=== PATIENT | female | born 1935 | race Caucasian/White ===

== ENCOUNTER 2020-04-16 07:42 | Outpatient (REF) | payer MEDICARE, MEDICAID, SELFPAY ==
[2020-04-16 11:34] LABS: MANUAL DIFF FLAG NO
[2020-04-16 11:49] LABS: Basophils Percent Auto 0.5 % (0-2); Eosinophils Absolute Auto 0.2 X10*3/uL (0.0-0.4); Eosinophils Percent Auto 3.7 % (0-4); Hematocrit 40.4 % (37-47); Imm Gran Abs Auto 0.03 X10*3/uL (0.00-0.03); Imm Gran Pct Auto 0.5 % (0.0-0.4); Lymphocytes Absolute Auto 2.5 X10*3/uL (1.2-4.9); Lymphocytes Percent Auto 38.6 % (20-40); Mean Corpuscular HGB Conc 32.2 g/dl (31.0-35.0); Mean Corpuscular Hemoglobin 31.6 pg (27.0-33.0); Mean Corpuscular Volume 98.1 fL (80-98); Mean Platelet Volume 10.9 fL (9.4-12.3); Monocytes Absolute Auto 0.5 X10*3/uL (0.1-1.2); Monocytes Percent Auto 6.9 % (2-11); Neutrophils Absolute Auto 3.3 X10*3/uL (2.0-8.3); Neutrophils Percent Auto 49.8 % (45-73); Platelet Count 165 X10*3/uL (160-400); Red Blood Count 4.12 X10*6/uL (4.20-5.50); Red Cell Distribution Width 12.6 % (11.0-16.0); White Blood Count 6.6 X10*3/uL (4.8-10.8)
[2020-04-16 12:08] LABS: Alanine Aminotransferase 10 U/L (0-31); Albumin Level 3.8 g/dL (3.5-5.0); Alkaline Phosphatase 74 U/L (39-117); Anion Gap 12 (12-20); Aspartate Amino Transferase 17 U/L (5-31); Bilirubin Total 0.3 mg/dL (0.0-1.0); Blood Urea Nitrogen 20 mg/dL (9-16); Calcium 9.3 mg/dL (8.4-10.2); Carbon Dioxide 27 mmol/L (22-29); Chloride 108 mmol/L (96-108); Cholesterol 204 mg/dL; Estimated Glomerular Filt Rate 47; Glucose Fasting 78 mg/dL (60-99); HDL Cholesterol 63 mg/dL; LDL Cholesterol Calculated 122 mg/dl; Potassium 4.8 mmol/l (3.3-5.1); Sodium 142 mmol/L (135-145); Total Protein 6.1 g/dL (6.5-8.0); Triglycerides 97 mg/dL
[2020-04-16 12:34] LABS: TSH reflex Free T4 0.98 mIU/mL (0.32-4.0); Vitamin D 25-OH Total 32.5 ng/mL (>30)
== END 2020-04-16 07:43 | disposition home or self-care (01) ==
LOC: HO.HMGCLDS 07:42
PROVIDERS: PCP Internal Medicine; Visit Provider Internal Medicine
DX: E78.5 Hyperlipidemia, unspecified (principal); I10 Essential (primary) hypertension; M81.0 Age-related osteoporosis without current pathological fracture; Z78.0 Asymptomatic menopausal state
CPT/HCPCS: 36415; 80053; 80061; 82306; 84443; 85025

== ENCOUNTER 2020-04-20 11:30 | Outpatient (RCR) | payer MEDICARE, MEDICAID, SELFPAY ==
[2020-04-05 13:33] VITALS: BP 132/78; PULSE 80; O2SAT 98
--- NOTE | 2020-04-05 14:53 | MHC.PT.EP ---
[facility] [place] [facility] [place] [facility] [place] [facility] [address] Candy Sanches [address] [phone] F: [phone] F: [phone] F: [phone] F: [phone] Physical Therapy Plan of Care Date of Evaluation: 04/05/20 Date of Surgery: NA Diagnosis: This is an 84 yo female presenting to skilled PT with a script for positional lightheadedness. Assessment: This is an 84 yo female presenting to skilled PT with a script for vertigo. The patient had an acute attack of vertigo back in August. Her blood pressure was also elevated and they admitted her to [facility]. She was seen by Physical Therapy inpatient and was positive for positional vertigo and then went to outpatient PT for a visit for VOR exercises. Since then her symptoms have been on and off but have increased more lately. The symptoms increase with bending forward, laying down (specifically on the R) and quick movements. Examination demonstrated (+) for dizziness and nystagmus for BPPV with R hallpike. With assessment of balance she demos increased dizziness with EC during [place] SOPT and with horizontal head turns during DGI today. She would benefit from reassessment of PT. Educated patient on causes of dizziness, balance systems and vestibular anatomy with glazier structural glass. She is a good candidate for skilled PT 2x/wk for 5wks. Frequency and Duration: The patient will be seen 2x/wk 5wks Short Term Goals: I in HEP if given Manager [employer] Goals: For the patient to be negative for nystagmus or reports of vertigo in all diagnostic positions bilaterally to resolution of BPPV in 4 weeks. Patient will report no LOB with ambulation For the patient to be able to functionally move in all planes and directions without provocation of dizziness to show return to PLOF. Treatment Plan: Modalities to reduce pain, spasms and effusion. Manual therapy to restore motion and function. Therapeutic exercise to improve strength and flexibility. Neuromuscular re-education for posture and balance. Therapeutic activities to return to functional activities of daily living. Please sign and return to therapist. Thank you for your referral.
--- NOTE | 2020-05-18 08:00 | MHC.PT.DC ---
[facility] [place] [facility] [place] [facility] [place] [facility] [address] Candy Sanches [address] [phone] F: [phone] F: [phone] F: [phone] F: [phone] Physical Therapy Discharge Report Diagnosis: This is an 84 yo female presenting to skilled PT with a script for positional lightheadedness. Date of Surgery: NA Date of Evaluation: 04/05/20 Date of Discharge: 05/18/20 Treatments to Date: 3 Cancellations to Date: 0 No Shows to Date: 0 Discharge Status: Achieved Goals Improved Function Independent with HEP Discharge Summary: Patient without any nystagmus or dizziness with reassessment. She demos good balance with testing. I reviewed VOR exercises and how to perform properly and safely. Left chart open for 30 days before DC. Educated on anatomy, PT POC, vestibular pathway. Electronically signed by: Chel Ponce, PT Please sign and return to therapist. Thank you for your referral.
== END 2020-05-18 08:05 | disposition home or self-care (01) ==
LOC: HO.PTCHIC 11:30
PROVIDERS: PCP Internal Medicine; Visit Provider Internal Medicine
DX: R42 Dizziness and giddiness (principal)
CPT/HCPCS: 95992; 97112; 97161; 97530

== ENCOUNTER 2020-11-09 07:02 | Outpatient (REF) | payer OTHER, SELFPAY ==
[2020-11-09 12:08] LABS: MANUAL DIFF FLAG NO
[2020-11-09 12:24] LABS: Basophils Percent Auto 0.6 % (0-2); Eosinophils Absolute Auto 0.2 X10*3/uL (0.0-0.4); Eosinophils Percent Auto 2.7 % (0-4); Hematocrit 41.2 % (37-47); Hemoglobin 13.1 g/dl (12.0-16.0); Imm Gran Abs Auto 0.04 X10*3/uL (0.00-0.03); Imm Gran Pct Auto 0.6 % (0.0-0.4); Lymphocytes Absolute Auto 2.5 X10*3/uL (1.2-4.9); Lymphocytes Percent Auto 37.3 % (20-40); Mean Corpuscular HGB Conc 31.8 g/dl (31.0-35.0); Mean Corpuscular Hemoglobin 31.3 pg (27.0-33.0); Mean Corpuscular Volume 98.6 fL (80-98); Mean Platelet Volume 11.1 fL (9.4-12.3); Monocytes Absolute Auto 0.5 X10*3/uL (0.1-1.2); Monocytes Percent Auto 6.9 % (2-11); Neutrophils Absolute Auto 3.5 X10*3/uL (2.0-8.3); Neutrophils Percent Auto 51.9 % (45-73); Platelet Count 155 X10*3/uL (160-400); Red Blood Count 4.18 X10*6/uL (4.20-5.50); Red Cell Distribution Width 13.2 % (11.0-16.0); White Blood Count 6.7 X10*3/uL (4.8-10.8)
[2020-11-09 12:45] LABS: Alanine Aminotransferase 10 U/L (0-31); Anion Gap 12 (12-20); Aspartate Amino Transferase 18 U/L (5-31); Blood Urea Nitrogen 24 mg/dL (9-16); Calcium 9.8 mg/dL (8.4-10.2); Carbon Dioxide 26 mmol/L (22-29); Chloride 110 mmol/L (96-108); Cholesterol 217 mg/dL; Estimated Glomerular Filt Rate 50; Glucose Fasting 77 mg/dL (60-99); HDL Cholesterol 61 mg/dL; LDL Cholesterol Calculated 135 mg/dl; Potassium 4.7 mmol/L (3.3-5.1); Sodium 143 mmol/L (135-145); Triglycerides 109 mg/dL
[2020-11-09 12:47] LABS: Vitamin D 25-OH Total 34.1 ng/mL (>30)
== END 2020-11-09 07:03 | disposition home or self-care (01) ==
LOC: HO.HMGCLDS 07:02
PROVIDERS: PCP Internal Medicine; Visit Provider Internal Medicine
DX: I10 Essential (primary) hypertension (principal); M81.0 Age-related osteoporosis without current pathological fracture; E78.5 Hyperlipidemia, unspecified; Z78.0 Asymptomatic menopausal state
CPT/HCPCS: 36415; 80048; 80061; 82306; 84450; 84460; 85025

== ENCOUNTER 2020-12-24 10:49 | Emergency (ER) | payer OTHER, SELFPAY ==
[2020-12-24 10:51] VITALS: BP 136/90; BP 155/89; PULSE 134; PULSE 144; RESP 18; TEMP 36.8; O2SAT 98; BMI 19.1
--- NOTE | 2020-12-24 11:04 | ECG_ITS ---
Test Reason : AFIB Blood Pressure : / mmHG Vent. Rate : 135 BPM Atrial Rate : 136 BPM P-R Int : 000 ms QRS Dur : 132 ms QT Int : 316 ms P-R-T Axes : 000 -54 009 degrees QTc Int : 474 ms Supraventricular tachycardia Right bundle branch block Left anterior fascicular block ST & T wave abnormality, consider anterior ischemia Abnormal ECG When compared with ECG of 02-SEP-2019 08:56, Vent. rate has increased BY [address] now depressed in Inferior leads Non-specific change in ST segment in Anterior leads Referred By: Tammy Burch Electronically Signed By:KRISTOPHER WORKMAN MD
--- NOTE | 2020-12-24 11:04 | ED_ITS ---
HPI - GI Bleed General Chief complaint: General Medical Stated complaint: gi bleed Time Seen by Provider: 12/24/20 11:04 Source: patient and EMS Mode of arrival: EMS Limitations: no limitations History of Present Illness HPI Narrative: sent from center c/o black stool no AC therapy no ASA/Fe/pepto bismol that patient was found to be in a HR of 150s on arrival to and brought to ED by EMS complaint: melena Onset (ago): day(s) (today just once but a large amount) Pain Consistency: now resolved Severity: mild Relieving factors: none Exacerbating factors: none Associated symptoms: denies other symptoms Treatments Prior to Arrival: none Related Data Home Medications Medication Instructions Recorded Confirmed cholecalciferol (vitamin D3) 50 50 mcg PO DAILY 04/20/20 12/24/20 mcg (2,000 unit) capsule acetaminophen 650 mg PO Q6H PRN 12/24/20 12/24/20 nystatin-triamcinolone 1 appl TOPICAL DAILY 12/24/20 12/24/20 Previous Rx's Medication Instructions Recorded lisinopril 10 mg tablet 10 mg PO DAILY #90 tab 12/14/20 omeprazole 20 mg PO DAILY 14 Days #14 cap 12/24/20 Allergies Allergy/AdvReac Type Severity Reaction Status Date / Time codeine [Codeine] Allergy Mild NAUSEA AND Verified 12/24/20 09:59 VOMITING azithromycin AdvReac Intermediate N/V/D, Verified 12/24/20 09:59 [From ZITHROMAX Z-EWA] severe GI upset lisinopril AdvReac Unknown cough Verified 12/24/20 09:59 Review of Systems Review of Systems: Constitutional : No Weight loss, No Fever, No Chills, No Fatigue, No Malaise ENT/Mouth : No sore throat, No Rhinorrhea Eyes: No Eye Pain, No Swelling, No Redness Cardiovascular : No Chest Pain, No SOB, No Dyspnea on Exertion, No Orthopnea, No Edema, No Palpitations Respiratory : No Cough, No Sputum, No Wheezing Gastrointestinal : No Nausea, No Vomiting, No Diarrhea, No Constipation, No abdominal Pain, No Hematochezia, pos Melena Genitourinary : No Dysuria, No Urinary Frequency, No Hematuria, Musculoskeletal : No joint pain, No Myalgias, No Joint Swelling Skin : No Skin Lesions, No rash Neuro : No Weakness, No Numbness, No Dizziness, No Headache Psych : No Anxiety/Panic, No Depression Heme/Lymph: No Bruising, No Bleeding,No Lymphadenopathy Endocrine : No Polyuria, No Polydipsia All other systems reviewed and are negative [facility] Past Medical History Attestation statement: The following information was validated with the patient. Medical History Dyslipidemia HTN (hypertension) Intertrigo Menopause Osteoporosis Smoker unmotivated to quit Vertigo Surgical History History of appendectomy History of cataract surgery History of colonoscopy History of partial hysterectomy Family History Family History Father No problems noted. Mother No problems noted. Sister No problems noted. Son No problems noted. Son No problems noted. Son No problems noted. Son No problems noted. Social History Social History Alcohol intake: never Cigarette Packs Per Day: 1 Advance Directives: No Advance Directives Information Provided: No Physical Exam Vital Signs: Vital Signs: Last Vital Signs Temp 98.4 F 12/24/20 14:39 Pulse 60 12/24/20 14:39 Resp 20 12/24/20 14:39 BP 123/52 L 12/24/20 14:39 Pulse Ox 97 12/24/20 14:39 Body Mass Index 19.1 Appearance: Alert. Oriented X3. No acute distress. Eyes: Pupils equal, round and reactive to light. ENT: Pharynx normal. Neck: Normal inspection. Neck supple. CVS: tacycardic irregular heart rate and rhythm. Pulses normal. Respiratory: No respiratory distress. Breath sounds normal. Abdomen: Soft and nontender. Rectal: black stool on card Skin: Skin warm and dry. Normal skin color. Normal skin turgor. Extremities: No lower extremity edema. No calf ttp Neuro: Oriented X 3. No motor deficit. No sensory deficit. Course Course Course Narrative: while RN was pushing 5mg dilt BP 150s HR 135 - her HR went to the 70s on her home NSR we stopped pushing the medication and removed the fluid from her line by pull back and removed the IV, patient aware, will continue to observe and monitor HR 70 BP stable repeat trop flat remains in NSR, H/H stable guiac negative no further bouts will refer to her doctor and cardiology start on low dose PPI x 2 weeks MDM - GI Bleed MDM Narrative Medical decision making narrative: 85 yo female hc of HTN, HLD, smoker here with 1 episode of melena at home - no risk factors, no abdominal pain, no prior episodes of this in the past, also found to be tachcyardic in the 150s ?aflutter at this time will need labs EKG, possible dilt to assess underlying rhythm she states she cannot feel her HR racing and has no CP/SOB so doubt ACS or PE, IV protonix during workup, dispo per results and findings. Lab Data Result diagrams: 12/24/20 11:32 12/24/20 11:32 Labs: Lab Results 12/24/20 12/24/20 12/24/20 Range/Units 11:32 11:32 11:32 WBC 7.2 (4.8-10.8) X10*3/uL RBC 4.34 (4.20-5.50) X10*6/uL Hgb 13.8 (12.0-16.0) g/dl Hct 42.3 (37-47) % MCV 97.5 (80-98) fL MCH 31.8 (27.0-33.0) pg MCHC 32.6 (31.0-35.0) g/dl RDW 13.0 (11.0-16.0) % Plt Count 171 (160-400) X10*3/uL MPV 10.4 (9.4-12.3) fL Immature Gran % (Auto) 0.7 H (0.0-0.4) % Neut % (Auto) 78.3 H (45-73) % Lymph % (Auto) 14.3 L (20-40) % [place] % (Auto) 5.0 (2-11) % Eos % (Auto) 1.1 (0-4) % Baso % (Auto) 0.6 (0-2) % Lymph # (Auto) 1.0 L (1.2-4.9) X10*3/uL [place] # (Auto) 0.4 (0.1-1.2) X10*3/uL Eos # (Auto) 0.1 (0.0-0.4) X10*3/uL Baso # (Auto) 0.0 (0.0-0.2) X10*3/uL Abs Immat Gran (auto) 0.05 H (0.00-0.03) X10*3/uL Absolute Neuts (auto) 5.6 (2.0-8.3) X10*3/uL Absolute Nucleated RBC 0.000 (0.0-0.012) X10*3/uL Nucleated RBC % (auto) 0.0 (0.0-0.2) /100WBC PT (9.9-13.0) SEC INR (0.9-1.1) APTT (24.1-38.0) SEC Sodium 142 (135-145) mmol/L Potassium 4.0 (3.3-5.1) mmol/L Chloride 110 H (96-108) mmol/L Carbon Dioxide 25 (22-29) mmol/L Anion Gap 11 L (12-20) BUN 17 H (9-16) mg/dL Creatinine 0.97 (0.5-1.4) mg/dL Estim Creat Clear Calc 26.3 Estimated GFR 55 Random Glucose 96 (60-115) mg/dL Lactic Acid (0.5-2.0) mmol/L Lactic Acid Fup @ 2Hr (0.5-2.0) mmol/L Calcium 10.0 (8.4-10.2) mg/dL Magnesium (1.6-2.6) mg/dL Total Bilirubin (0.0-1.0) mg/dL Direct Bilirubin (0.0-0.5) mg/dL AST (5-31) U/L ALT (0-31) U/L Alkaline Phosphatase (39-117) U/L Troponin I High Sens (<3.5-17.0) ng/L Total Protein (6.5-8.0) g/dL Albumin (3.5-5.0) g/dL Lipase (8-78) U/L Urine Color Urine Appearance Urine pH (5.0-8.0) Ur Specific [place] (1.005-1.025) Urine Protein (NEG-TRACE) MG/DL Urine Glucose (UA) (NEG) MG/DL Urine Ketones (NEG) MG/DL Urine Blood (NEG) Urine Nitrite (NEG) Ur Leukocyte Esterase (NEG) Stool Occult Blood (NEGATIVE) COVID-19 (SEVERO) COVID-19 Clin Com Blood Type B Positive Antibody Screen NEGATIVE 12/24/20 12/24/20 12/24/20 Range/Units 11:33 11:33 11:33 WBC (4.8-10.8) X10*3/uL RBC (4.20-5.50) X10*6/uL Hgb (12.0-16.0) g/dl Hct (37-47) % MCV (80-98) fL MCH (27.0-33.0) pg MCHC (31.0-35.0) g/dl RDW (11.0-16.0) % Plt Count (160-400) X10*3/uL MPV (9.4-12.3) fL Immature Gran % (Auto) (0.0-0.4) % Neut % (Auto) (45-73) % Lymph % (Auto) (20-40) % [place] % (Auto) (2-11) % Eos % (Auto) (0-4) % Baso % (Auto) (0-2) % Lymph # (Auto) (1.2-4.9) X10*3/uL [place] # (Auto) (0.1-1.2) X10*3/uL Eos # (Auto) (0.0-0.4) X10*3/uL Baso # (Auto) (0.0-0.2) X10*3/uL Abs Immat Gran (auto) (0.00-0.03) X10*3/uL Absolute Neuts (auto) (2.0-8.3) X10*3/uL Absolute Nucleated RBC (0.0-0.012) X10*3/uL Nucleated RBC % (auto) (0.0-0.2) /100WBC PT 10.2 (9.9-13.0) SEC INR 0.9 (0.9-1.1) APTT 39.2 H (24.1-38.0) SEC Sodium (135-145) mmol/L Potassium (3.3-5.1) mmol/L Chloride (96-108) mmol/L Carbon Dioxide (22-29) mmol/L Anion Gap (12-20) BUN (9-16) mg/dL Creatinine (0.5-1.4) mg/dL Estim Creat Clear Calc Estimated GFR Random Glucose (60-115) mg/dL Lactic Acid 2.4 H* (0.5-2.0) mmol/L Lactic Acid Fup @ 2Hr (0.5-2.0) mmol/L Calcium (8.4-10.2) mg/dL Magnesium 2.1 (1.6-2.6) mg/dL Total Bilirubin 0.4 (0.0-1.0) mg/dL Direct Bilirubin 0.2 (0.0-0.5) mg/dL AST 17 (5-31) U/L ALT 10 (0-31) U/L Alkaline Phosphatase 96 D (39-117) U/L Troponin I High Sens (<3.5-17.0) ng/L Total Protein 6.4 L (6.5-8.0) g/dL Albumin 4.1 (3.5-5.0) g/dL Lipase 43 (8-78) U/L Urine Color Urine Appearance Urine pH (5.0-8.0) Ur Specific [place] (1.005-1.025) Urine Protein (NEG-TRACE) MG/DL Urine Glucose (UA) (NEG) MG/DL Urine Ketones (NEG) MG/DL Urine Blood (NEG) Urine Nitrite (NEG) Ur Leukocyte Esterase (NEG) Stool Occult Blood (NEGATIVE) COVID-19 (SEVERO) COVID-19 Clin Com Blood Type Antibody Screen 12/24/20 12/24/20 12/24/20 Range/Units 11:33 11:34 11:35 WBC (4.8-10.8) X10*3/uL RBC (4.20-5.50) X10*6/uL Hgb (12.0-16.0) g/dl Hct (37-47) % MCV (80-98) fL MCH (27.0-33.0) pg MCHC (31.0-35.0) g/dl RDW (11.0-16.0) % Plt Count (160-400) X10*3/uL MPV (9.4-12.3) fL Immature Gran % (Auto) (0.0-0.4) % Neut % (Auto) (45-73) % Lymph % (Auto) (20-40) % [place] % (Auto) (2-11) % Eos % (Auto) (0-4) % Baso % (Auto) (0-2) % Lymph # (Auto) (1.2-4.9) X10*3/uL [place] # (Auto) (0.1-1.2) X10*3/uL Eos # (Auto) (0.0-0.4) X10*3/uL Baso # (Auto) (0.0-0.2) X10*3/uL Abs Immat Gran (auto) (0.00-0.03) X10*3/uL Absolute Neuts (auto) (2.0-8.3) X10*3/uL Absolute Nucleated RBC (0.0-0.012) X10*3/uL Nucleated RBC % (auto) (0.0-0.2) /100WBC PT (9.9-13.0) SEC INR (0.9-1.1) APTT (24.1-38.0) SEC Sodium (135-145) mmol/L Potassium (3.3-5.1) mmol/L Chloride (96-108) mmol/L Carbon Dioxide (22-29) mmol/L Anion Gap (12-20) BUN (9-16) mg/dL Creatinine (0.5-1.4) mg/dL Estim Creat Clear Calc Estimated GFR Random Glucose (60-115) mg/dL Lactic Acid (0.5-2.0) mmol/L Lactic Acid Fup @ 2Hr (0.5-2.0) mmol/L Calcium (8.4-10.2) mg/dL Magnesium (1.6-2.6) mg/dL Total Bilirubin (0.0-1.0) mg/dL Direct Bilirubin (0.0-0.5) mg/dL AST (5-31) U/L ALT (0-31) U/L Alkaline Phosphatase (39-117) U/L Troponin I High Sens 14.5 (<3.5-17.0) ng/L Total Protein (6.5-8.0) g/dL Albumin (3.5-5.0) g/dL Lipase (8-78) U/L Urine Color STRAW Urine Appearance CLEAR Urine pH 6.0 (5.0-8.0) Ur Specific [place] <= 1.005 (1.005-1.025) Urine Protein NEG (NEG-TRACE) MG/DL Urine Glucose (UA) NEG (NEG) MG/DL Urine Ketones NEG (NEG) MG/DL Urine Blood NEG (NEG) Urine Nitrite NEG (NEG) Ur Leukocyte Esterase NEG (NEG) Stool Occult Blood NEGATIVE (NEGATIVE) COVID-19 (SEVERO) COVID-19 Clin Com Blood Type Antibody Screen 12/24/20 12/24/20 12/24/20 Range/Units 11:36 13:54 13:54 WBC (4.8-10.8) X10*3/uL RBC (4.20-5.50) X10*6/uL Hgb (12.0-16.0) g/dl Hct (37-47) % MCV (80-98) fL MCH (27.0-33.0) pg MCHC (31.0-35.0) g/dl RDW (11.0-16.0) % Plt Count (160-400) X10*3/uL MPV (9.4-12.3) fL Immature Gran % (Auto) (0.0-0.4) % Neut % (Auto) (45-73) % Lymph % (Auto) (20-40) % [place] % (Auto) (2-11) % Eos % (Auto) (0-4) % Baso % (Auto) (0-2) % Lymph # (Auto) (1.2-4.9) X10*3/uL [place] # (Auto) (0.1-1.2) X10*3/uL Eos # (Auto) (0.0-0.4) X10*3/uL Baso # (Auto) (0.0-0.2) X10*3/uL Abs Immat Gran (auto) (0.00-0.03) X10*3/uL Absolute Neuts (auto) (2.0-8.3) X10*3/uL Absolute Nucleated RBC (0.0-0.012) X10*3/uL Nucleated RBC % (auto) (0.0-0.2) /100WBC PT (9.9-13.0) SEC INR (0.9-1.1) APTT (24.1-38.0) SEC Sodium (135-145) mmol/L Potassium (3.3-5.1) mmol/L Chloride (96-108) mmol/L Carbon Dioxide (22-29) mmol/L Anion Gap (12-20) BUN (9-16) mg/dL Creatinine (0.5-1.4) mg/dL Estim Creat Clear Calc Estimated GFR Random Glucose (60-115) mg/dL Lactic Acid (0.5-2.0) mmol/L Lactic Acid Fup @ 2Hr 0.9 (0.5-2.0) mmol/L Calcium (8.4-10.2) mg/dL Magnesium (1.6-2.6) mg/dL Total Bilirubin (0.0-1.0) mg/dL Direct Bilirubin (0.0-0.5) mg/dL AST (5-31) U/L ALT (0-31) U/L Alkaline Phosphatase (39-117) U/L Troponin I High Sens 17.9 H* (<3.5-17.0) ng/L Total Protein (6.5-8.0) g/dL Albumin (3.5-5.0) g/dL Lipase (8-78) U/L Urine Color Urine Appearance Urine pH (5.0-8.0) Ur Specific [place] (1.005-1.025) Urine Protein (NEG-TRACE) MG/DL Urine Glucose (UA) (NEG) MG/DL Urine Ketones (NEG) MG/DL Urine Blood (NEG) Urine Nitrite (NEG) Ur Leukocyte Esterase (NEG) Stool Occult Blood (NEGATIVE) COVID-19 (SEVERO) TNP COVID-19 Clin Com See Note Blood Type Antibody Screen ECG Data Attestation: I personally reviewed and interpreted this ECG as follows: ECG interpretation date: 12/24/20 ECG interpretation time: 11:35 Interpretation: Rate: 135 Rhythm: narrow complex tachycardia [place]: left Normal P waves. Normal RAKESH. incomplete RBBB ST T wave : nonspecific, no SERVANDO qTC: normal prior studies: no acute ischemia old RBBB 08/2019 The study has been interpreted contemporaneously by me. . EKG #2 Rate: 63 Rhythm: NSR [place]: left Normal P waves. Normal RAKESH. incomplete RBBB. ST T wave : normal no SERVANDO nonspecific qTC: normal prior studies: no acute ischemia The study has been interpreted contemporaneously by me. . Discharge Plan Discharge Clinical Impression: Tachycardia, Melena Patient Disposition: Home, Self-Care Instructions: Tachycardia (ED), Melena (ED) Additional Instructions: return to ED for any worsening symptoms or concerns AVOID ASPIRIN, MOTRIN, IBUPROFEN, ALEVE, NAPROSYN - TYLENOL IS SAFE Prescriptions: New omeprazole 20 mg capsule,delayed release(DR/EC) 20 mg PO DAILY 14 Days Qty: 14 RF: 0 No Action lisinopril 10 mg tablet 10 mg PO DAILY Qty: 90 RF: 1 acetaminophen 325 mg Tablet 650 mg PO Q6H PRN (Reason: Sinus Symptoms) RF: 0 nystatin-triamcinolone 100,000-0.1 unit/g-% cream 1 appl topical DAILY RF: 0 cholecalciferol (vitamin D3) 50 mcg (2,000 unit) capsule 50 mcg PO DAILY RF: 0 Referrals: Crissy Sullivan MD [Primary Care Provider] - 2 days Richard Lowry MD [Physician] - 2 weeks
--- NOTE | 2020-12-24 11:30 | PHA.MEDREC ---
Pharmacy Consult ? Medication Reconciliation Pharmacy has completed the medication reconciliation. Patient reports using an antifungal cream, however no record at a pharmacy. Her home med list had nystatin-triamcinolone prior to editing therefore I kept it on the med list. Candice Murillo, PharmD
[2020-12-24 11:38] VITALS: BP 155/89; PULSE 72
[2020-12-24] MEDS: dilTIAZem HCL 50 MG/10 ML VIAL IVPUSH (11:38)
[2020-12-24] MEDS: Pantoprazole Sodium 40 MG/10 ML VIAL IVPUSH (11:38)
[2020-12-24] MEDS: 0.9 % Sodium Chloride 1,000 ML 999 ML IVCONT (11:40)
[2020-12-24 11:46] LABS: OBS Int Ctl Valid YES; OBS1 NEGATIVE (NEGATIVE)
[2020-12-24 11:46] LABS: MANUAL DIFF FLAG NO
[2020-12-24 11:49] LABS: Glucose Urine UA NEG (NEG); Leukocyte Esterase Urine NEG (NEG); Nitrite Urine NEG (NEG); Specific Gravity - Urine <= 1.005 (1.005-1.025); Urine Blood NEG (NEG); Urine Ketones NEG (NEG); Urine Protein NEG (NEG-TRACE)
[2020-12-24 11:50] LABS: IDNOW Serial# 9DD0AD1C
[2020-12-24 11:50] LABS: Appearance Urine CLEAR; Color Urine STRAW
[2020-12-24 11:52] LABS: INTERNATIONAL NORM RATIO 0.9 (0.9-1.1); Prothrombin Time 10.2 SEC (9.9-13.0)
[2020-12-24 11:52] LABS: Basophils Percent Auto 0.6 % (0-2); Eosinophils Absolute Auto 0.1 X10*3/uL (0.0-0.4); Eosinophils Percent Auto 1.1 % (0-4); Hematocrit 42.3 % (37-47); Hemoglobin 13.8 g/dl (12.0-16.0); Imm Gran Abs Auto 0.05 X10*3/uL (0.00-0.03); Imm Gran Pct Auto 0.7 % (0.0-0.4); Lymphocytes Percent Auto 14.3 % (20-40); Mean Corpuscular HGB Conc 32.6 g/dl (31.0-35.0); Mean Corpuscular Hemoglobin 31.8 pg (27.0-33.0); Mean Corpuscular Volume 97.5 fL (80-98); Mean Platelet Volume 10.4 fL (9.4-12.3); Monocytes Absolute Auto 0.4 X10*3/uL (0.1-1.2); Neutrophils Absolute Auto 5.6 X10*3/uL (2.0-8.3); Neutrophils Percent Auto 78.3 % (45-73); Platelet Count 171 X10*3/uL (160-400); Red Blood Count 4.34 X10*6/uL (4.20-5.50); White Blood Count 7.2 X10*3/uL (4.8-10.8)
[2020-12-24 11:55] LABS: Partial Thromboplastin Time 39.2 SEC (24.1-38.0)
[2020-12-24 12:13] VITALS: BP 129/62; PULSE 72; RESP 16; O2SAT 98
[2020-12-24 12:18] LABS: Anion Gap 11 (12-20); Blood Urea Nitrogen 17 mg/dL (9-16); Carbon Dioxide 25 mmol/L (22-29); Chloride 110 mmol/L (96-108); Creatinine Clr Calc Pharmacy 26.3; Estimated Glomerular Filt Rate 55; Glucose Random 96 mg/dL (60-115); Sodium 142 mmol/L (135-145)
[2020-12-24 12:19] LABS: Alanine Aminotransferase 10 U/L (0-31); Albumin Level 4.1 g/dL (3.5-5.0); Alkaline Phosphatase 96 U/L (39-117); Aspartate Amino Transferase 17 U/L (5-31); Bilirubin Direct 0.2 mg/dL (0.0-0.5); Bilirubin Total 0.4 mg/dL (0.0-1.0); Lipase 43 U/L (8-78); Magnesium 2.1 mg/dL (1.6-2.6); Total Protein 6.4 g/dL (6.5-8.0)
[2020-12-24 12:22] LABS: Troponin-I High Sensitivity 14.5 ng/L (<3.5-17.0)
[2020-12-24 12:38] LABS: Lactic Acid 2.4 mmol/L (0.5-2.0)
--- NOTE | 2020-12-24 13:30 | ECG_ITS ---
Test Reason : GENERAL MEDICINE Blood Pressure : / mmHG Vent. Rate : 063 BPM Atrial Rate : 063 BPM P-R Int : 132 ms QRS Dur : 096 ms QT Int : 418 ms P-R-T Axes : 053 -45 003 degrees QTc Int : 427 ms Sinus rhythm with Premature atrial complexes Low voltage QRS Incomplete right bundle branch block Left anterior fascicular block Abnormal ECG When compared with ECG of 24-DEC-2020 11:21, Normal sinus rhythm has replaced Supraventricular tachycardia Referred By: Tammy Burch Electronically Signed By:KRISTOPHER WORKMAN MD
[2020-12-24 13:42] LABS: Reflex Lactate? Lactic Acid Added
[2020-12-24 14:29] LABS: ~Lactic Acid-LAB USE ONLY 0.9 mmol/L (0.5-2.0)
[2020-12-24 14:39] VITALS: BP 123/52; PULSE 60; RESP 20; TEMP 36.9; O2SAT 97
[2020-12-24 14:43] LABS: Troponin-I High Sensitivity 17.9 ng/L (<3.5-17.0)
[2020-12-24 15:11] LABS: COVID-19 Test Negative (Negative)
== END 2020-12-24 15:33 | disposition home or self-care (01) ==
PROVIDERS: Emergency Provider Emergency Medicine; PCP Internal Medicine
DX: K92.1 Melena (principal); R00.0 Tachycardia, unspecified; I10 Essential (primary) hypertension; F17.200 Nicotine dependence, unspecified, uncomplicated; Z79.899 Other long term (current) drug therapy; Z20.822 Contact with and (suspected) exposure to COVID-19
CPT/HCPCS: 36415; 80048; 80076; 81003; 82272; 83605; 83690; 83735; 84484; 85025; 85610; 85730; 86850; 86900; 86901; 87635; 93005; 96361; 96374; 96375; 99284

== ENCOUNTER → 2021-03-06 11:40 | Outpatient (BNVA) | payer OTHER, SELFPAY | PROVIDERS: PCP Internal Medicine; Visit Provider Nurse Practitioner Family ==

== ENCOUNTER 2021-05-08 | Outpatient (REF) | payer OTHER, SELFPAY ==
[2021-05-10 13:59] LABS: FIT Int Ctl YES; FIT1 NEGATIVE (NEGATIVE); FIT2 NEGATIVE (NEGATIVE)
== END 2021-05-08 00:01 | disposition home or self-care (01) ==
LOC: HO.LNP
PROVIDERS: Visit Provider Nurse Practitioner Family
DX: Z87.19 Personal history of other diseases of the digestive system (principal)
CPT/HCPCS: 82274

== ENCOUNTER → 2021-05-10 11:26 | Outpatient (BNVA) | payer OTHER, SELFPAY | PROVIDERS: Referring Provider Internal Medicine; Visit Provider Nurse Practitioner Family ==

== ENCOUNTER 2021-07-02 13:35 | Outpatient (REF) | payer OTHER, SELFPAY ==
--- NOTE | ~2021-07-02 | MM_ITS ---
EXAMINATION: BONE DENSITOMETRY CLINICAL INDICATION: Age-related osteoporosis without current pathological fracture. COMPARISON: Previous BD dated 03/31/2017 and baseline BD dated 10/28/2007. TECHNIQUE: Using a [employer] DXA System (software version: 13.1) manufactured by [employer], dual-energy x-ray absorptiometry was performed of the lumbar spine and left hip. The images are of good technical quality. Summary results are attached. FINDINGS: AP SPINE L1-L4: Current: BMD 0.604 g/cm2, Z-score -2.1, T-score -4.8, osteoporosis, 2.7% increase from previous, 2.0% increase from baseline (<5% change is not significant). Prior: BMD 0.588 g/cm2. Baseline: BMD 0.592 g/cm2. LEFT FEMUR, NECK: Current: BMD 0.479 g/cm2, Z-score -1.1, T-score -4.0, osteoporosis. Prior: BMD 0.458 g/cm2. Baseline: BMD 0.504 g/cm2. LEFT FEMUR, TOTAL: Current: BMD 0.442 g/cm2, Z-score -1.7, T-score -4.5, osteoporosis, 6.0% decrease from previous, 3.9% decrease from baseline (<5% change is not significant). Prior: BMD 0.470 g/cm2. Baseline: BMD 0.460 g/cm2. IDENTIFIED RISK FACTORS: Osteoporosis, tobacco use (current smoker), height loss. Early menopause, secondary osteoporosis, hysterectomy. HISTORY OF FRACTURE: None listed. MEDICATIONS: Vitamin D. MM/XR DEXA axial skeleton IMPRESSION: 1. DIAGNOSIS: Osteoporosis based on the lowest T-score value of -4.8 in the lumbar spine applying World Health Organization criteria. 2. 10-YEAR FRACTURE RISK PREDICTION, FRAX: According to the guidelines, FRAX calculation should only be performed on patients in the osteopenia bone density category. 3. Treatment Recommendations: NOF guidelines recommend consideration for treatment in postmenopausal women and men age 50 and older presenting with the following: -A hip or vertebral (clinical or morphometric) fracture. -T-score less than or equal to -2.5 at the femoral neck or spine after appropriate evaluation to exclude secondary causes. -Low bone mass at the hip or spine and a 10-year fracture probability by FRAX of greater than or equal to 3% for hip fracture or greater than or equal to 20% for major osteoporotic fracture based on the [place] adapted WHO algorithm. 4. Other Recommendations: All treatment decisions require clinical judgment and consideration of individual patient factors, including patient preferences, comorbidities, previous drug use, risk factors not captured in the FRAX model (e.g. frailty, falls, vitamin D deficiency, increased bone turnover, interval significant decline in bone density) and possible under or overestimation of fracture risk by FRAX. Additional medical evaluation for secondary cause of low bone mineral density may be appropriate. FUTURE SCAN RECOMMENDATION: People with diagnosed cases of osteoporosis or at high risk for fracture should have regular bone mineral density tests. For patients eligible for Medicare, routine testing is allowed once every 2 years. The testing frequency can be increased to one year for patients who have rapidly progressing disease, those who are receiving or discontinuing medical therapy to restore bone mass, or have additional risk factors.
== END 2021-07-02 13:36 | disposition home or self-care (01) ==
LOC: HO.MAMMO 13:35
PROVIDERS: Visit Provider Internal Medicine
DX: Z13.820 Encounter for screening for osteoporosis (principal); M81.0 Age-related osteoporosis without current pathological fracture; Z78.0 Asymptomatic menopausal state; F17.200 Nicotine dependence, unspecified, uncomplicated; Z79.899 Other long term (current) drug therapy; Z98.890 Other specified postprocedural states
CPT/HCPCS: 77080

== ENCOUNTER 2021-08-23 09:04 | Outpatient (REF) | payer OTHER, SELFPAY ==
[2021-08-23 11:27] LABS: MANUAL DIFF FLAG NO
[2021-08-23 11:33] LABS: Basophils Percent Auto 0.5 % (0-2); Eosinophils Absolute Auto 0.2 X10*3/uL (0.0-0.4); Eosinophils Percent Auto 2.8 % (0-4); Hematocrit 40.3 % (37.0-47.0); Hemoglobin 12.8 g/dl (12.0-16.0); Imm Gran Abs Auto 0.04 X10*3/uL (0.00-0.03); Imm Gran Pct Auto 0.6 % (0.0-0.4); Lymphocytes Absolute Auto 2.1 X10*3/uL (1.2-4.9); Lymphocytes Percent Auto 32.6 % (20-40); Mean Corpuscular HGB Conc 31.8 g/dl (31.0-35.0); Mean Corpuscular Hemoglobin 31.1 pg (27.0-33.0); Mean Corpuscular Volume 98.1 fL (80.0-98.0); Monocytes Absolute Auto 0.4 X10*3/uL (0.1-1.2); Monocytes Percent Auto 6.8 % (2-11); Neutrophils Absolute Auto 3.7 x10*3/uL (2.0-8.3); Neutrophils Percent Auto 56.7 % (45-73); Platelet Count 164 X10*3/uL (160-400); Red Blood Count 4.11 X10*6/uL (4.20-5.50); Red Cell Distribution Width 12.8 % (11.0-16.0); White Blood Count 6.5 X10*3/uL (4.8-10.8)
[2021-08-23 11:55] LABS: Alanine Aminotransferase 13 U/L (0-31); Anion Gap 10 (12-20); Aspartate Amino Transferase 17 U/L (5-31); Blood Urea Nitrogen 17 mg/dL (9-16); Calcium 10.2 mg/dL (8.4-10.2); Carbon Dioxide 27 mmol/L (22-29); Chloride 107 mmol/L (96-108); Cholesterol 230 mg/dL; Estimated Glomerular Filt Rate 59; Glucose Fasting 78 mg/dL (60-99); HDL Cholesterol 58 mg/dL; LDL Cholesterol Calculated 145 mg/dl; Potassium 4.2 mmol/L (3.3-5.1); Sodium 140 mmol/L (135-145); Triglycerides 138 mg/dL
[2021-08-23 12:17] LABS: TSH reflex Free T4 1.32 uIU/mL (0.32-4.0); Vitamin D 25-OH Total 36.2 ng/mL (>30)
[2021-08-23 12:23] LABS: Folate 10.9 ng/mL (> or = 4.0); Vitamin B12 425 pg/mL (200-900)
== END 2021-08-23 09:05 | disposition home or self-care (01) ==
LOC: HO.HMGCLDS 09:04
PROVIDERS: Visit Provider Internal Medicine
DX: M81.0 Age-related osteoporosis without current pathological fracture (principal); E78.5 Hyperlipidemia, unspecified; I10 Essential (primary) hypertension; R53.83 Other fatigue; Z78.0 Asymptomatic menopausal state; Z87.19 Personal history of other diseases of the digestive system
CPT/HCPCS: 36415; 80048; 80061; 82306; 82607; 82746; 84443; 84450; 84460; 85025

== ENCOUNTER → 2021-11-08 12:46 | Outpatient (BNVA) | payer OTHER, SELFPAY | PROVIDERS: PCP Internal Medicine; Visit Provider Nurse Practitioner Family | DX: Z13.89 Encounter for screening for other disorder (principal) ==

== ENCOUNTER 2022-05-20 11:16 | Outpatient (AMB) | payer OTHER, SELFPAY ==
--- OUTSIDE RECORDS SUMMARY | 2022-05-20 11:18 | XMS_ITS | Continuity of Care Document ---
:1935 Author Organization [facility] pt Address [address] [place] [address]- Care Team Providers Name Role Phone Nate HOPPER, Crissy Orozco Primary Care Physician Encounter [facility] ACCT R [id number] Date(s): 05/04/20 - 06/03/20 [facility] [address] [place], [place] [address] Attending Physician: Alicia May Admitting Physician: Alicia May Referring Physician: AdmtrAlicia Allergies, Adverse Reactions, Alerts Substance Reaction Severity Status codeine Active Medications Fosamax 70 mg oral tablet 1 tablet = 70 mg, By Mouth, Every week, # 13 tablet, 3 Refills, Maintenance, Tablet, 1 tablet By Mouth Every week,x90 days Start Date: 03/25/13 Stop Date: 03/20/14 Status: Orderedlisinopril 20 mg oral tablet 1 tablet = 20 mg, By Mouth, Daily, 0 Refills, Maintenance Start Date: 08/20/12 Status: Ordered
--- OUTSIDE RECORDS SUMMARY | 2022-05-20 11:18 | XMS_ITS | Continuity of Care Document ---
:1935 Author Organization [facility] Address [address] [place] [address]- Care Team Providers Name Role Phone Nate HOPPER, Crissy Orozco Primary Care Physician [phone] Encounter [facility] Date(s): 05/04/20 - 06/03/20 [facility] [address] [place], [place] [address] Attending Physician: Alicia May Admitting Physician: Alicia [...]
--- OUTSIDE RECORDS SUMMARY | 2022-05-20 11:18 | XMS_ITS | Continuity of Care Document ---
:1935 Author Organization [facility] Address [address] [place] [address]- Care Team Providers Name Role Phone Nate HOPPER, Crissy Orozco Primary Care Physician Encounter [facility] ACCT R [id number] Date(s): 05/04/20 - 06/03/20 [facility] [address] [place], [place] [address] Attending Physician: Quynh Tabares MD Referring Physician: Nate HOPPER , Crissy Orozco Allergies, Adverse Reactions, Alerts Substance Reaction Severity [...]
--- NOTE | 2022-05-20 11:29 | A.OFFPC_ITS ---
Vital Signs 05/20/22 11:31 Height 4 ft 9 in Weight 90 lb BMI 19.5 BP 130/62 Blood Pressure Location Rt brachial Position Sitting Pulse 70 Pulse Source Pulse Oximeter Pulse Oximetry (%) 99 Oxygen Delivery Method Room Air Intake Visit Reasons: bilateral wrist pain: no injury noted Intake Note: Pt is here today c/o bilateral wrist pain no injury noted Allergies codeine [Codeine] Allergy (Mild, Verified 12/10/22 10:09) NAUSEA AND VOMITING azithromycin [From ZITHROMAX Z-EWA] Adverse Reaction (Intermediate, Verified 12/10/22 10:09) N/V/D, severe GI upset Medication List - Last Reconciled 05/20/22 by Crissy Sullivan MD acetaminophen 650 mg PO Q6H PRN cholecalciferol (vitamin D3) 50 mcg PO DAILY lisinopril 10 mg PO DAILY loratadine (Allergy Relief (loratadine)) 10 mg PO DAILY Tobacco use date assessed: 05/20/22 Fall risk assessment: No Falls in past year Last assessed Fall Risk: 05/20/22 HPI HPI Comments History of Present Illness Details 87-year-old lady here today complaining of pain in both wrists. This has been present now on and off for the last several months, and getting worse. Denies any overuse of joints, no history of trauma. Patient finds it hard to hold things with her hands, especially caring a glass of water or her cup as she experiences intermittent shooting pains in her risk going to the fingers , and occasionally in the forearm. No relief with taking Tylenol or a application of ice or heat [facility] Medical History Cerumen impaction Dyslipidemia Eczema History of melena HTN (hypertension) Intertrigo Lichen sclerosus Menopause Osteoporosis Smoker unmotivated to quit Spongiotic dermatitis Tachycardia, paroxysmal Tenosynovitis of both wrists Vertigo Surgical History H/O: hysterectomy History of appendectomy History of cataract surgery History of colonoscopy Family History Father No problems noted. Mother No problems noted. Sister No problems noted. Son No problems noted. Son No problems noted. Son No problems noted. Son No problems noted. Other Substance use disorder Social History Housing: Apartment Alcohol intake: never Patient Tobacco Use Status: Current someday Tobacco user Tobacco use type: Cigarette Cigarette Packs Per Day: 0 Cigarettes Per Day: 6 e-Cigarette/Vaping Use: Never Used service: No Cognitive needs: No Hearing needs: No Vision needs: Yes Questionnaire Thrive Questionnaire Date Thrive assessed: 07/31/21 AUDIT C Alcohol Use Questionnaire (AUDIT-C) 1. How often do you have a drink containing alcohol?: Never Total Score: 0 KAYLA-7 AMB Questionnaire KAYLA-7 Date KAYLA - 7 assessed: 07/31/21 Source: Developed by Drs. Ortiz iMke, Yessenia Quintana, Fernando Eller and colleagues, with an educational papito from [employer]. Review of Systems Const All systems reviewed & are unremarkable except as noted in HPI and below Physical exam (Primary Care) Vital Signs: Last Vital Signs Pulse 70 05/20/22 11:31 BP 130/62 05/20/22 11:31 Pulse Ox 99 05/20/22 11:31 Oxygen Delivery Method Room Air 05/20/22 11:31 BMI result Body Mass Index 19.5 Tobacco/Smoking Status: Tobacco use Status Tobacco use date assessed 05/20/22 05/20/22 11:36 Patient Tobacco Use Status Current someday Tobacco 05/20/22 11:36 Tobacco use type Cigarette 05/20/22 11:36 e-Cigarette/Vaping Use Never Used 05/20/22 11:36 Thrive Assessment: Date of Thrive Assessment Date Thrive assessed 07/31/21 05/20/22 11:36 Const General: comfortable and no acute distress Nutritional Appearance: average body habitus Orientation/consciousness: patient oriented x3 Neck Neck: Yes full ROM, Yes no lymphadenopathy and Yes supple Resp Auscultation: clear to auscultation bilaterally Cardio Rate: regular rate Rhythm: regular rhythm Heart sounds: S1 normal heart sound present and S2 normal heart sound present Neuro General: patient oriented x3, gait normal, tone normal, no focal motor deficits and CN's II-XI intact bilaterally Extrem Other: Ulnar deviation fingers of both hands, with positive Heberden's nodes, tenderness on palpation over base of right thumb bilaterally, with mild swelling noted over said joint Office Procedures Flu Questionnaire Does the patient have a severe egg allergy?: No Does the patient have severe life threatening allergies?: No Does the patient have a fever or illness today?: No Has the patient ever had Guillain-Tryon Syndrome?: No Has the patient ever had any past reaction to a flu shot?: No Immunizations flu vacc [id number] 6mos up(PF) Performing Provider: Crissy Sullivan MD Administered by: Veronica Lira CMA on 05/20/22 12:25 Dose Route Admin Location Lot Number Expiration Date NDC Veget[employer] W[employer] 0.5 mL IM Right Deltoid [id number] 12/05/22 [id number] [employer] VIS Given Date VIS Provided VIS Publication Date 05/20/22 Single Vaccine 21 Eligibility Eligibility Date Funding Source Not [facility] Eligible 05/20/22 Private Assessment and Plan Assessment & Plan (1) Tenosynovitis of both wrists: Code(s): M65.9 - Synovitis and tenosynovitis, unspecified Plan: Referred to orthopedics for further evaluation management (2) Needs flu shot: Code(s): Z23 - Encounter for immunization Plan: Flu vaccine given today Orders: Orders Influenza [id number] Immunization 05/20/22 Z23 - Encounter for immunization Referrals Orthopedics Referral M65.9 - Synovitis and tenosynovitis, unspecified Coding Level of Care Code Est Pt Level 3 (98721) Diagnoses Tenosynovitis of both wrists M65.9 Needs flu shot Z23
[2022-05-20 11:31] VITALS: BP 130/62; PULSE 70; O2SAT 99; BMI 19.5
== END 2022-05-20 12:46 | disposition home or self-care (01) ==
LOC: HO.HMGC 11:16
PROVIDERS: PCP Internal Medicine; Visit Provider Internal Medicine
DX: Z23 Encounter for immunization
CPT/HCPCS: 90471; 90686; 99213

== ENCOUNTER → 2022-06-04 13:11 | Outpatient (BNVA) | payer OTHER, SELFPAY | PROVIDERS: PCP Internal Medicine; Visit Provider Nurse Practitioner Family | DX: K64.9 Unspecified hemorrhoids (principal) ==

== ENCOUNTER 2022-06-06 07:37 | Outpatient (REF) | payer OTHER, SELFPAY ==
--- NOTE | ~2022-06-06 | XR_ITS ---
EXAMINATION: XR WRIST, RIGHT CLINICAL INFORMATION: Pain. COMPARISON: None TECHNIQUE: PA, lateral, and oblique views of the right wrist. FINDINGS: There is bony demineralization. There is a neutral ulnar variance. The proximal and distal carpal rows are intact. There is mild to moderate osteoarthritic change of the first carpometacarpal joint. There is no fracture or dislocation. No abnormal bone erosion is noted. No soft tissue swelling, gas or foreign body is seen. XR/XR wrist LT min 3V IMPRESSION: 1. There is mild to moderate osteoarthritic change of the right first carpometacarpal joint. 2. No fracture or dislocation is seen. 3. There is bony demineralization. EXAMINATION: XR WRIST, LEFT CLINICAL INFORMATION: Pain. COMPARISON: None TECHNIQUE: PA, lateral, and oblique views of the left wrist. FINDINGS: There is bony demineralization. There is a neutral ulnar variance. The proximal and distal carpal rows are intact. There is marked osteoarthritic change of the left first carpometacarpal joint. No fracture or dislocation is seen. No abnormal bone erosion. No soft tissue swelling, gas or foreign body is seen. IMPRESSION: 1. There is marked osteoarthritic change of the left first carpometacarpal joint. 2. No fracture or dislocation is seen. 3. There is bony demineralization.
--- NOTE | ~2022-06-06 | XR_ITS ---
EXAMINATION: XR WRIST, RIGHT CLINICAL INFORMATION: Pain. COMPARISON: None TECHNIQUE: PA, lateral, and oblique views of the right wrist. FINDINGS: There is bony demineralization. There is a neutral ulnar variance. The proximal and distal carpal rows are intact. There is mild to moderate osteoarthritic change of the first carpometacarpal joint. There is no fracture or dislocation. No abnormal bone erosion is noted. No soft tissue swelling, gas or foreign body is seen. XR/XR wrist RT min 3V IMPRESSION: 1. There is mild to moderate osteoarthritic change of the right first carpometacarpal joint. 2. No fracture or dislocation is seen. 3. There is bony demineralization. EXAMINATION: XR WRIST, LEFT CLINICAL INFORMATION: Pain. COMPARISON: None TECHNIQUE: PA, lateral, and oblique views of the left wrist. FINDINGS: There is bony demineralization. There is a neutral ulnar variance. The proximal and distal carpal rows are intact. There is marked osteoarthritic change of the left first carpometacarpal joint. No fracture or dislocation is seen. No abnormal bone erosion. No soft tissue swelling, gas or foreign body is seen. IMPRESSION: 1. There is marked osteoarthritic change of the left first carpometacarpal joint. 2. No fracture or dislocation is seen. 3. There is bony demineralization.
== END 2022-06-06 07:38 | disposition home or self-care (01) ==
LOC: HO.HOSX 07:37
PROVIDERS: Visit Provider Physician Assistant
DX: M18.0 Bilateral primary osteoarthritis of first carpometacarpal joints (principal)
CPT/HCPCS: 73110

== ENCOUNTER → 2022-09-11 13:32 | Outpatient (BNVA) | payer MEDICARE, OTHER, SELFPAY | PROVIDERS: PCP Internal Medicine; Visit Provider Advanced Practice Midwife ==

== ENCOUNTER 2022-10-13 13:35 | Outpatient (REF) | payer OTHER, SELFPAY | END 2022-10-13 13:36 | disposition home or self-care (01) | LOC: HO.LAB 13:35 | PROVIDERS: PCP Internal Medicine; Visit Provider Advanced Practice Midwife | DX: N90.89 Other specified noninflammatory disorders of vulva and perineum (principal); L29.2 Pruritus vulvae | CPT/HCPCS: 56605; 56606; 88305; 88312 ==

== ENCOUNTER → 2022-10-20 13:45 | Outpatient (BNVA) | payer OTHER, SELFPAY | PROVIDERS: PCP Internal Medicine; Visit Provider Advanced Practice Midwife | DX: Z71.2 Person consulting for explanation of examination or test findings (principal); L90.0 Lichen sclerosus et atrophicus; L30.8 Other specified dermatitis | CPT/HCPCS: 99212 ==

== ENCOUNTER → 2022-11-26 11:24 | Outpatient (BNVA) | payer OTHER, SELFPAY | PROVIDERS: PCP Internal Medicine; Visit Provider Nurse Practitioner Family ==

== ENCOUNTER 2022-12-03 07:10 | Outpatient (REF) | payer OTHER, SELFPAY ==
[2022-12-03 11:16] LABS: MANUAL DIFF FLAG NO
[2022-12-03 11:21] LABS: Basophils Absolute Auto 0.1 X10*3/uL (0.0-0.2); Basophils Percent Auto 0.8 % (0-2); Eosinophils Absolute Auto 0.3 X10*3/uL (0.0-0.4); Eosinophils Percent Auto 3.8 % (0-4); Hematocrit 41.6 % (37.0-47.0); Hemoglobin 13.6 g/dl (12.0-16.0); Imm Gran Abs Auto 0.04 X10*3/uL (0.00-0.03); Imm Gran Pct Auto 0.6 % (0.0-0.4); Lymphocytes Absolute Auto 2.4 X10*3/uL (1.2-4.9); Lymphocytes Percent Auto 35.9 % (20-40); Mean Corpuscular HGB Conc 32.7 g/dl (31.0-35.0); Mean Corpuscular Hemoglobin 32.4 pg (27.0-33.0); Mean Platelet Volume 11.2 fL (9.4-12.3); Monocytes Absolute Auto 0.4 X10*3/uL (0.1-1.2); Monocytes Percent Auto 5.9 % (2-11); Neutrophils Absolute Auto 3.5 x10*3/uL (2.0-8.3); Platelet Count 142 X10*3/uL (160-400); Red Cell Distribution Width 12.7 % (11.0-16.0); White Blood Count 6.6 X10*3/uL (4.8-10.8)
[2022-12-03 11:56] LABS: Anion Gap 7 (12-20); Blood Urea Nitrogen 18 mg/dL (9-16); Calcium 10.2 mg/dL (8.4-10.2); Carbon Dioxide 28 mmol/L (22-29); Chloride 107 mmol/L (96-108); Cholesterol 206 mg/dL; Estimated Glomerular Filt Rate 55; Glucose Fasting 84 mg/dL (60-99); HDL Cholesterol 55 mg/dL; LDL Cholesterol Calculated 132 mg/dl; Potassium 4.7 mmol/L (3.3-5.1); Sodium 137 mmol/L (135-145); Triglycerides 96 mg/dL
[2022-12-03 11:58] LABS: TSH reflex Free T4 1.87 uIU/mL (0.32-4.0); Vitamin D 25-OH Total 62.1 ng/mL (>30)
== END 2022-12-03 07:11 | disposition home or self-care (01) ==
LOC: HO.HMGCLDS 07:10
PROVIDERS: PCP Internal Medicine; Visit Provider Internal Medicine
DX: I10 Essential (primary) hypertension (principal); E78.5 Hyperlipidemia, unspecified; M81.0 Age-related osteoporosis without current pathological fracture; F17.200 Nicotine dependence, unspecified, uncomplicated; Z78.0 Asymptomatic menopausal state; R63.4 Abnormal weight loss
CPT/HCPCS: 36415; 80048; 80061; 82306; 84443; 85025

== ENCOUNTER 2023-01-26 13:22 | Outpatient (REF) | payer OTHER, SELFPAY ==
[2023-01-26 13:42] VITALS: BMI 19.3
[2023-01-26 13:43] VITALS: BP 145/71; PULSE 61; RESP 16; TEMP 36.4; O2SAT 98
== END 2023-01-26 13:23 | disposition home or self-care (01) ==
LOC: HO.MS 13:22
PROVIDERS: Visit Provider Ophthalmology
PROC: (CPT 66821; principal; 2023-01-26 15:20)
DX: H26.492 Other secondary cataract, left eye (principal)
CPT/HCPCS: 66821

== ENCOUNTER 2023-03-04 08:55 | Outpatient (AMB) | payer OTHER, SELFPAY ==
[2023-03-04 08:58] VITALS: BP 142/70; PULSE 62; O2SAT 98; BMI 18.6
--- NOTE | 2023-03-04 08:58 | A.OFFPC_ITS ---
Vital Signs 03/04/23 08:58 Height 4 ft 9 in Weight 86 lb BMI 18.6 BP 142/70 H Blood Pressure Location Lt brachial Position Sitting Pulse 62 Pulse Source Pulse Oximeter Pulse Oximetry (%) 98 Oxygen Delivery Method Room Air Intake Visit Reasons: [facility] ER, ?TIA Intake Note: pt is here for ED f/u from [facility] questioning TIA Allergies codeine [Codeine] Allergy (Mild, Verified 06/02/23 15:11) NAUSEA AND VOMITING azithromycin [From ZITHROMAX Z-EWA] Adverse Reaction (Intermediate, Verified 06/02/23 15:11) N/V/D, severe GI upset Medication List - Last Reconciled 03/04/23 by Crissy Sullivan MD acetaminophen 650 mg PO Q6H PRN aspirin 81 mg PO DAILY cholecalciferol (vitamin D3) 50 mcg PO DAILY clobetasol 0.05% (Temovate) 1 appl topical DAILY hydrocortisone 2.5% (Proctosol HC) 1 appl ME BID-QID PRN lisinopril 10 mg PO DAILY loratadine (Allergy Relief (loratadine)) 10 mg PO DAILY Tobacco use date assessed: 11/17/22 Fall risk assessment: No Falls in past year Last assessed Fall Risk: 03/04/23 Dental Screening Dental Screen Date: 03/04/23 Did you have a dental visit in the last 12 months?: Yes Did you have a dental problem in the last 6 months where you did not have access to dental care?: No Was dental information given to patient?: Patient has dentist HPI [facility] ER, ?TIA HPI Details 87-year-old lady with hypertension, oste oporosis, current cigarette smoker, here today for follow-up after recent ER visit at [facility] 02/16/2023 for a TIA. She presented with complaints of abdominal pain after an episode of imbalance. At the ER , presented with a normal gait, neurologic exam was normal, CT of head , abdomen and pelvis showed unremarkable findings. Urinalysis, labs done which included BMP and CBC all came back with unremarkable findings, EKG also was normal and vital signs were stable. Patient was treated for possible TIA and started on aspirin and clopidogrel and is here for follow- up. She at present is back to baseline, has no complaints of further episodes of lightheadedness, gait instability, abdominal pain. 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 Mother No problems noted. Sister No problems noted. Son No problems noted. Son No problems noted. Son No problems noted. Son No problems noted. Other Substance use disorder Social History Housing: Apartment Alcohol intake: never Patient Tobacco Use Status: Current someday Tobacco user Tobacco use type: Cigarette Cigarette Packs Per Day: 0 Cigarettes Per Day: 6 e-Cigarette/Vaping Use: Never Used service: No Cognitive needs: No Hearing needs: No Vision needs: Yes Questionnaire Thrive Questionnaire Date Thrive assessed: 07/31/21 KAYLA-7 AMB Questionnaire KAYLA-7 Date KAYLA - 7 assessed: 07/31/21 Source: Developed by Drs. Ortiz Mike, Yessenia Quintana, Fernando Eller and colleagues, with an educational papito from [employer]. Review of Systems Const Reports no additional complaints Eyes Denies change in vision ENT Reports no additional complaints Card Reports no additional complaints Resp Reports no additional complaints GI Denies abdominal pain, Denies belching, Denies melena, Denies bloating, Denies change in bowel habits, Denies excessive flatus, Denies heartburn and Denies nausea Reports no additional complaints Musc Reports no additional complaints Neuro Reports no additional complaints Psych Reports no additional complaints Endo Reports no additional complaints Gunner/Lymph Denies easy bruising Aller/Immun Reports no additional complaints Physical exam (Primary Care) Vital Signs: Last Vital Signs Pulse 62 03/04/23 08:58 BP 142/70 H 03/04/23 08:58 Pulse Ox 98 09/27/23 08:58 Oxygen Delivery Method Room Air 03/04/23 08:58 BMI result Body Mass Index 18.6 Tobacco/Smoking Status: Tobacco use Status Tobacco use date assessed 11/17/22 03/04/23 08:59 Patient Tobacco Use Status Current someday Tobacco 03/04/23 08:59 Tobacco use type Cigarette 03/04/23 08:59 e-Cigarette/Vaping Use Never Used 03/04/23 08:59 Are you ready to quit: No Thrive Assessment: Date of Thrive Assessment Date Thrive assessed 07/31/21 03/04/23 08:59 Const General: comfortable and no acute distress Nutritional Appearance: average body habitus Orientation/consciousness: patient oriented x3 Limitations: no limitations HENMT Ears: external ears normal, TM's normal bilaterally and EAC's normal General nose exam: Normal external nose present and No nasal discharge present Neck Neck: Yes full ROM, Yes no lymphadenopathy and Yes supple Thyroid: Thyroid normal Resp Auscultation: clear to auscultation bilaterally Cardio Rate: regular rate Rhythm: regular rhythm Heart sounds: S1 normal heart sound present and S2 normal heart sound present Bruits: carotid bruit on the left GI Inspection: Yes normal to inspection Palpation (GI): Soft to palpation, nontender and no guarding Auscultation: normal bowel sounds Neuro General: patient oriented x3, gait normal, tone normal, moves all extremities, Normal light touch and pain sensation, no focal motor deficits and CN's II-XI intact bilaterally Extrem Other: Ulnar deviation fingers of both hands, with positive Heberden's nodes General: Yes full ROM Assessment and Plan Assessment & Plan (1) Hx of transient ischemic attack (TIA): Code(s): Z86.73 - Personal history of transient ischemic attack (TIA), and cerebral infarction without residual deficits Plan: Continue with aspirin and clopidogrel, strongly encouraged to stop smoking, ordered ultrasound of carotid bilateral (2) Dyslipidemia: Code(s): E78.5 - Hyperlipidemia, unspecified Plan: Fasting lipid panel ordered (3) HTN (hypertension): Code(s): I10 - Essential (primary) hypertension Qualifiers: Hypertension type: primary hypertension Qualified Code(s): I10 - Essential (primary) hypertension Plan Continue with lisinopril 10 mg daily Orders: Orders US carotid duplex BI 03/04/23 Z86.73 - Personal history of transient ischemic attack (TIA), and cerebral infarction without residual deficits Lipid Panel 03/04/23 Z86.73 - Personal history of transient ischemic attack (TIA), and cerebral infarction without residual deficits, E78.5 - Hyperlipidemia, unspecified, I10 - Essential (primary) hypertension Coding Level of Care Code Est Pt Level 4 (31485) Diagnoses Hx of transient ischemic attack (TIA) Z86.73 Dyslipidemia E78.5 Primary hypertension I10 Hypertension type: primary hypertension
== END 2023-03-04 09:53 | disposition home or self-care (01) ==
PROVIDERS: PCP Internal Medicine; Visit Provider Internal Medicine
DX: E78.5 Hyperlipidemia, unspecified (principal); I10 Essential (primary) hypertension; Z86.73 Personal history of transient ischemic attack (TIA), and cerebral infarction without residual deficits
CPT/HCPCS: 99214

== ENCOUNTER 2023-03-12 12:49 | Outpatient (REF) | payer OTHER, SELFPAY | END 2023-03-12 12:50 | disposition home or self-care (01) | LOC: HO.HMGCX 12:49 | PROVIDERS: PCP Internal Medicine; Visit Provider Internal Medicine | DX: Z86.73 Personal history of transient ischemic attack (TIA), and cerebral infarction without residual deficits (principal) | CPT/HCPCS: 93880 ==

== ENCOUNTER 2023-05-28 13:01 | Outpatient (AMB) | payer OTHER, SELFPAY ==
[2023-05-28 13:06] VITALS: BP 130/70; PULSE 62; O2SAT 98; BMI 18.2
--- NOTE | 2023-05-28 13:06 | MHC.PC.OV ---
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: No Accompanied by: Self / Same As Patient Allergies codeine [Codeine] Allergy (Mild, Verified 06/02/23 15:11) NAUSEA AND VOMITING azithromycin [From ZITHROMAX Z-EWA] Adverse Reaction (Intermediate, Verified 06/02/23 15:11) N/V/D, severe GI upset Medication List - Last Reconciled 06/02/23 by Crissy Sullivan MD acetaminophen 650 mg PO Q6H PRN albuterol sulfate 90 mcg/actuation 2 puffs inhalation Q6H PRN aspirin (Adult Low Dose Aspirin) 81 mg PO DAILY cholecalciferol (vitamin D3) 50 mcg PO DAILY clobetasol 0.05% (Temovate) 1 appl topical DAILY hydrocortisone 2.5% (Proctosol HC) 1 appl WA BID-QID PRN lisinopril 10 mg PO DAILY loratadine (Allergy Relief (loratadine)) 10 mg PO DAILY rosuvastatin 5 mg PO DAILY umeclidinium-vilanterol 62.5-25 mcg/actuation (Anoro Ellipta) 1 inh inhalation Q24H Tobacco use date assessed: 05/28/23 Fall risk assessment: No Falls in past year Last assessed Fall Risk: 05/28/23 Dental Screening Dental Screen Date: 05/28/23 Did you have a dental visit in the last 12 months?: No Did you have a dental problem in the last 6 months where you did not have access to dental care?: No Was dental information given to patient?: Patient declined HPI Annual Physical HPI Details 88-year-old lady here today for physical exam. She has hypertension currently stable controlled on lisinopril 10 mg daily, has COPD currently on Anoro Ellipta and albuterol inhaler. Continues to smoke however but states that she has cut down to 6 cigarettes a day, but has no desire to quit at present time. Has a dry cough but denies any shortness of breath. Takes rosuvastatin for hypercholesterolemia. Has osteoporosis, currently being seen by [facility] endocrinology. No history of fractures. She has been having intermittent episodes of lightheadedness, and a carotid ultrasound done showed presence of more than 50% stenosis in her left carotid artery. 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 Mother No problems noted. Sister No problems noted. Son No problems noted. Son No problems noted. Son No problems noted. Son No problems noted. Other Substance use disorder Social History Housing: Apartment Alcohol intake: never Patient Tobacco Use Status: Current someday Tobacco user Tobacco use type: Cigarette Cigarette Packs Per Day: 0 Cigarettes Per Day: 6 e-Cigarette/Vaping Use: Never Used service: No Cognitive needs: No Hearing needs: No Vision needs: Yes Female Reproductive History Menstrual Other: Currently sees [facility], diagnosed with lichen sclerosis Questionnaire Thrive Questionnaire Date Thrive assessed: 05/28/23 I am a: Patient What is your living situation today?: I have a steady place to live Within the past 12 months, did the food you bought not last and you didn't have the money to get more?: Never true Within the past 12 months, did you worry whether your food would run out before you got money to buy more?: Never true Do you have trouble paying for medicines?: No Do you have trouble getting transportation to medical appointments?: No Do you have trouble paying your heating and electricity bill?: No Do you have trouble taking care of your child, family member or friend?: No Do you have trouble with day-to-day activities such as bathing, preparing meals, shopping, managing finances, etc.?: No Are you currently unemployed and looking for a job?: No Are you interested in more education?: No KAYLA-7 AMB Questionnaire KAYLA-7 Date KAYLA - 7 assessed: 07/31/21 Source: Developed by Drs. Ortiz Mike, Yessenia Quintana, Fernando Eller and colleagues, with an educational papito from [employer]. Review of Systems Const Reports as per HPI, Reports no additional complaints and Denies weight loss Eyes Details: Sees Dr. Crooks Denies change in vision ENT Reports no additional complaints Card Reports no additional complaints Resp Reports as per HPI, Reports no additional complaints and Denies wheezing GI Denies abdominal pain, Denies belching, Denies melena, Denies bloating, Denies change in bowel habits, Denies excessive flatus, Denies heartburn and Denies nausea Reports no additional complaints Musc Reports no additional complaints Skin/Breast Reports dry skin Neuro Reports no additional complaints Psych Reports no additional complaints Endo Reports no additional complaints Gunner/Lymph Reports no additional complaints Aller/Immun Reports no additional complaints and Denies wheezing Physical exam (Primary Care) Vital Signs: Last Vital Signs Pulse 62 05/28/23 13:06 BP 130/70 05/28/23 13:06 Pulse Ox 98 05/28/23 13:06 BMI result Body Mass Index 18.2 Tobacco/Smoking Status: Tobacco use Status Tobacco use date assessed 05/28/23 05/28/23 13:07 Patient Tobacco Use Status Current someday Tobacco 05/28/23 13:07 Tobacco use type Cigarette 05/28/23 13:07 e-Cigarette/Vaping Use Never Used 05/28/23 13:07 Are you ready to quit: No Thrive Assessment: Date of Thrive Assessment Date Thrive assessed 05/28/23 05/28/23 13:38 Const General: comfortable and no acute distress Nutritional Appearance: average body habitus Orientation/consciousness: patient oriented x3 HENMT Ears: external ears normal, TM's normal bilaterally and EAC's normal General nose exam: Normal external nose present and No nasal discharge present Neck Neck: Yes full ROM, Yes no lymphadenopathy and Yes supple Thyroid: Thyroid normal Resp Auscultation: clear to auscultation bilaterally Cardio Rate: regular rate Rhythm: regular rhythm Heart sounds: S1 normal heart sound present and S2 normal heart sound present Bruits: carotid bruit on the left GI Inspection: Yes normal to inspection Palpation (GI): Soft to palpation, nontender and no guarding Auscultation: normal bowel sounds General: Yes no CVA tenderness Back/Spine/Pelvis Back: no CVA tenderness and No back tenderness Neuro General: patient oriented x3, gait normal, tone normal, moves all extremities, Normal light touch and pain sensation, no focal motor deficits and CN's II-XI intact bilaterally Extrem Other: Ulnar deviation fingers of both hands, with positive Heberden's nodes General: Yes full ROM Psych Appearance: grossly normal and well kempt Mental Status: mental status grossly normal Speech and movement: Normal speech and movement present Affect: normal affect Attitude: cooperative Thought process: Normal thought process present Thought content: Normal thought content present Results Reviewed Results Reviewed: US carotid duplex BI IMPRESSION: 1. RIGHT: Minimal, non-hemodynamically significant stenosis of the proximal right internal carotid artery corresponding to a 0-49% stenosis by velocity criteria. 2. LEFT: Moderate, hemodynamically significant stenosis of the proximal left internal carotid artery corresponding to a 50-79% stenosis by velocity criteria. This is increased from the prior study. 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 Referred to vascular surgery for further evaluation management. Stressed importance of getting blood pressure and cholesterol levels under good control, strongly recommend to stop smoking (2) Chronic cough: Code(s): R05.3 - Chronic cough Plan: Ordered chest x-ray, again advised to stop smoking but patient unmotivated to quit. Continue with Anoro Ellipta and albuterol rescue inhaler (3) COPD (chronic obstructive pulmonary disease): Code(s): J44.9 - Chronic obstructive pulmonary disease, unspecified Qualifiers: COPD type: unspecified COPD Qualified Code(s): J44.9 - Chronic obstructive pulmonary disease, unspecified Plan: advised to stop smoking but patient unmotivated to quit. Continue with Anoro Ellipta and albuterol rescue inhaler (4) Hx of transient ischemic attack (TIA): Code(s): Z86.73 - Personal history of transient ischemic attack (TIA), and cerebral infarction without residual deficits Plan: continue aspirin , reinforced importance of keeping blood pressure , lipids controlled and stressed importance of quitting smoking . (5) Smoker unmotivated to quit: Code(s): F17.200 - Nicotine dependence, unspecified, uncomplicated Plan: Patient strongly advised to stop smoking, as smoking damages blood vessels, degenerative of joints and spine, damage to lungs and heart., predisposes to developing certain cancers like lung, breast, bladder, colon. Recommended to try decreasing cigarette use by 1-2 cigarettes a day. Advised to monitor what triggers are for smoking so that this can be discussed on the next office visit. We can discuss different options to quit smoking when ready. (6) Osteoporosis: Code(s): M81.0 - Age-related osteoporosis without current pathological fracture Qualifiers: Osteoporosis type: age-related Plan: Has been seen by [facility] endocrinology, saw Dr. Palmer last year who ordered more testing done , states that at her age and with no prior history of fracture, aggressive therapy is not warranted (7) Dyslipidemia: Code(s): E78.5 - Hyperlipidemia, unspecified Plan: Will need to get LDL controlled less than 100 mg per dL, closer to 70, especially in light of presence of carotid artery occlusion and history of TIA. Will start on rosuvastatin has last cholesterol was 132 mg/dL. Fasting lipid panel ordered (8) HTN (hypertension): Code(s): I10 - Essential (primary) hypertension Qualifiers: Hypertension type: primary hypertension Qualified Code(s): I10 - Essential (primary) hypertension Plan: Blood pressure at goal of less than 130/80. Continue with current medication. Reinforced importance of following a low sodium diet, getting regular exercise, and lowering stress levels. (9) Annual visit for general adult medical examination with abnormal findings: Code(s): Z00.01 - Encounter for general adult medical examination with abnormal findings Plan: Fasting lipid panel ordered.. Recommended dental visit every 6 months and regular eye exams, at least every 2 years. Take adequate calcium in diet and vitamin-D 3 at 2000 IU per cap once a day, in addition to weight-bearing exercises to help maintain good muscle tone and weight control. Patient no longer gets screening mammograms or colonoscopies. Patient refusing further vaccinations Orders: Orders XR chest 2V 05/28/23 R05.3 - Chronic cough Referrals Vascular Surgery Referral I65.22 - Occlusion and stenosis of left carotid artery Medications: New umeclidinium-vilanterol 62.5-25 mcg/actuation (Anoro Ellipta) 1 inh inhalation Q24H 60 ea 1RF albuterol sulfate 90 mcg/actuation 2 puffs inhalation Q6H PRN 8.5 grams 1RF shortness of breath or wheezing rosuvastatin 5 mg PO DAILY 30 tabs 5RF aspirin (Adult Low Dose Aspirin) 81 mg PO DAILY 30 tabs 5RF Coding Level of Care Code Est Pt Prev Care >65y(13197) Diagnoses Stenosis of left carotid artery 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
== END 2023-05-28 16:03 | disposition home or self-care (01) ==
PROVIDERS: PCP Internal Medicine; Visit Provider Internal Medicine
DX: Z00.00 Encounter for general adult medical examination without abnormal findings (principal); J44.9 Chronic obstructive pulmonary disease, unspecified; I65.22 Occlusion and stenosis of left carotid artery; R05.3 Chronic cough; Z86.73 Personal history of transient ischemic attack (TIA), and cerebral infarction without residual deficits; F17.210 Nicotine dependence, cigarettes, uncomplicated; M81.0 Age-related osteoporosis without current pathological fracture; E78.5 Hyperlipidemia, unspecified; I10 Essential (primary) hypertension
CPT/HCPCS: 99397

== ENCOUNTER 2023-05-28 13:37 | Outpatient (REF) | payer OTHER, SELFPAY ==
--- NOTE | ~2023-05-28 | XR_ITS ---
EXAMINATION: XR CHEST CLINICAL INFORMATION: Chronic cough COMPARISON: None available. TECHNIQUE: 2 views of the chest were obtained. FINDINGS: The lungs are hyperinflated but clear of acute process. The heart size and pulmonary vascularity is normal. No gross bony abnormality seen. 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
== END 2023-05-28 13:38 | disposition home or self-care (01) ==
LOC: HO.HMGCX 13:37
PROVIDERS: PCP Internal Medicine; Visit Provider Internal Medicine
DX: R05.3 Chronic cough (principal)
CPT/HCPCS: 71046

== ENCOUNTER 2023-07-02 14:17 | Outpatient (AMB) | payer OTHER, SELFPAY ==
--- NOTE | 2023-07-02 14:25 | A.OFFVIS_ITS ---
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 Pt states she feels overall well but states she has hazy vision every once in a while. 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 She reports that she had a syncopal episode about 2 years ago. The current time was totally asymptomatic and had a routine surveillance carotid ultrasound. She denies any lateralizing signs or symptoms weakness in an arm or leg, visual or speech disturbances. She has had an ultrasound. She reports she smokes about half a pack per day and is a nondiabetic. She now presents for vascular evaluation. 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 Mother No problems noted. Sister No problems noted. Son No problems noted. Son No problems noted. Son No problems noted. Son No problems noted. Other Substance use disorder Social History (Updated 07/02/23 @ 14:28 by Keeley Ness MA) Housing: Apartment Alcohol intake: never Patient Tobacco Use Status: Current someday Tobacco user Tobacco use type: Cigarette Cigarette Packs Per Day: 0 Cigarettes Per Day: 4 e-Cigarette/Vaping Use: Never Used service: No Cognitive needs: No Hearing needs: No Vision needs: Yes Review of Systems Const All systems reviewed & are unremarkable except as noted in HPI and below Reports no additional complaints ENT Reports Normal hearing present Card Denies chest pain, Denies chest pain at rest, Denies chest pain with activity and Denies pedal edema Resp Denies cough GI Denies abdominal pain Musc Denies abnormal gait, Denies muscle cramps and Denies radiating pain into limb Skin/Breast Denies skin ulcer and Denies wounds Neuro Reports Normal hearing present and Denies abnormal gait Psych Reports no additional complaints Physical Exam Vital Signs: Last Vital Signs Pulse 63 07/02/23 14:27 BP 128/68 07/02/23 14:32 Pulse Ox 100 07/02/23 14:27 Oxygen Delivery Method Room Air 07/02/23 14:27 BMI result Body Mass Index 18.4 Const General: cooperative, healthy appearing and comfortable Orientation/consciousness: oriented to person, oriented to place and oriented to time HEENT Head: Yes normal to inspection Neck Neck: Yes normal visual inspection Carotids: no bruits Chest Chest palpation & inspection: normal inspection of the chest Resp Effort & Inspection: normal respiratory effort and able to speak in complete sentences Auscultation: clear to auscultation bilaterally, no crackles, no rales, no rhonchi and no wheezes Cardio Rate: regular rate Rhythm: regular rhythm Heart sounds: S1 normal heart sound present and S2 normal heart sound present Bruits: no carotid bruits Peripheral pulses: Peripheral pulses 2+ throughout GI Inspection: Yes normal to inspection Skin Wounds: no wounds Hair: normal Neuro General: oriented to person, oriented to place and oriented to time Cranial nerves: Yes CN's II-XII intact bilaterally and Yes Normal hearing present Cognition (Neuro): normal cognition Motor exam (neuro): 5/5 motor strength present throughout Extrem Other: venous exam: No significant superficial varicosities or spider telangiectasias, minimal edema General: No clubbing, No cyanosis and No edema Psych Appearance: grossly normal Mental Status: mental status grossly normal Speech and movement: Normal speech and movement present Results Reviewed Results Reviewed: Carotid ultrasound dated 03/12/2023 demonstrates right-sided 0-49% stenosis and left side 50-79% stenosis with a peak systolic velocity of 141 written report and images were reviewed. Assessment & Plan Assessment & Plan (1) Bilateral carotid artery stenosis: Code(s): I65.23 - Occlusion and stenosis of bilateral carotid arteries Plan: In short patient has asymptomatic carotid disease. We have reviewed signs and symptoms of a stroke. We also discussed risk factor modification inclusive a healthy diet low in cholesterol. The patient will follow up with us with surveillance ultrasound of the carotids six-month. Should there be any changes or signs or symptoms of a stroke we will be happy to see them back sooner. Thank you for allowing us to participate in this patient's care. If there are any questions or concerns please do not hesitate to contact us. Orders: Orders US carotid duplex BI 6 Months I65.23 - Occlusion and stenosis of bilateral carotid arteries Coding Level of Care Code New Pt Level 4 (15792) Diagnoses Bilateral carotid artery stenosis I65.23
[2023-07-02 14:27] VITALS: BP 132/70; PULSE 63; O2SAT 100; BMI 18.4
[2023-07-02 14:32] VITALS: BP 128/68
== END 2023-07-02 14:55 | disposition home or self-care (01) ==
PROVIDERS: PCP Internal Medicine; Visit Provider Surgery Vascular Surgery
DX: I65.23 Occlusion and stenosis of bilateral carotid arteries (principal)
CPT/HCPCS: 99203

== ENCOUNTER → 2023-07-02 14:17 | Outpatient (BNVA) | payer OTHER, SELFPAY | PROVIDERS: PCP Internal Medicine; Visit Provider Surgery Vascular Surgery | DX: I65.23 Occlusion and stenosis of bilateral carotid arteries (principal) | CPT/HCPCS: 99202 ==

== ENCOUNTER 2023-07-29 11:41 | Outpatient (AMB) | payer OTHER, SELFPAY ==
--- NOTE | 2023-07-29 11:55 | MHC.PC.OV ---
Vital Signs 07/29/23 12:42 Height 4 ft 9 in Weight 87 lb BMI 18.8 BP 132/68 Blood Pressure Location Lt brachial Position Sitting Pulse 82 Pulse Source Pulse Oximeter Pulse Oximetry (%) 99 Oxygen Delivery Method Room Air Intake Visit Reasons: Cardiac follow up Intake Note: Pt is here today to for her cardiac f/u Allergies codeine [Codeine] Allergy (Mild, Verified 11/26/23 07:04) NAUSEA AND VOMITING azithromycin [From ZITHROMAX Z-EWA] Adverse Reaction (Intermediate, Verified 11/26/23 07:04) N/V/D, severe GI upset Medication List - Last Reconciled 11/26/23 by Crissy Sullivan MD acetaminophen 650 mg PO Q6H PRN albuterol sulfate 90 mcg/actuation 2 puffs inhalation Q6H PRN aspirin (Adult Low Dose Aspirin) 81 mg PO DAILY cholecalciferol (vitamin D3) 50 mcg PO DAILY clobetasol 0.05% (Temovate) 1 appl topical DAILY hydrocortisone 2.5% (Proctosol HC) 1 appl MS BID-QID PRN lisinopril 10 mg PO DAILY loratadine (Allergy Relief (loratadine)) 10 mg PO DAILY rosuvastatin 5 mg PO DAILY umeclidinium-vilanterol 62.5-25 mcg/actuation (Anoro Ellipta) 1 inh inhalation Q24H Tobacco use date assessed: 07/29/23 Fall risk assessment: No Falls in past year Last assessed Fall Risk: 07/29/23 Dental Screening Dental Screen Date: 07/29/23 Did you have a dental visit in the last 12 months?: No Was dental information given to patient?: No HPI Cardiac follow up HPI Details 88-year-old lady with hypertension currently stable controlled on lisinopril 10 mg daily, has COPD currently on Anoro Ellipta and albuterol inhaler. Continues to smoke however but states that she has cut down to 6 cigarettes a day, but has no desire to quit at present time. Takes rosuvastatin for hypercholesterolemia. Has osteoporosis, currently being seen by [facility] endocrinology. No history of fractures. Was complaining of having intermittent episodes of lightheadedness carotid ultrasound done showed more than 50% stenosis in her left carotid artery and 0 249% stenosis on the left. She was referred to vascular surgery for consult, seen last month. As per vascular surgery, she has asymptomatic carotid disease, advised risk factor modification inclusive a healthy diet low in cholesterol. She is scheduled to follow up with surveillance ultrasound of the carotids six-month. [facility] Medical History Abnormal EKG COPD (chronic obstructive pulmonary disease) Stenosis of left carotid artery greater than 50% Chronic cough Hx of transient ischemic attack (TIA) Spongiotic dermatitis Lichen sclerosus Cerumen impaction Tenosynovitis of both wrists Eczema Tachycardia, paroxysmal History of melena Intertrigo Smoker unmotivated to quit Vertigo Menopause Osteoporosis Dyslipidemia HTN (hypertension) Surgical History H/O: hysterectomy History of colonoscopy History of cataract surgery History of appendectomy Family History Father No problems noted. Mother No problems noted. Sister No problems noted. Son No problems noted. Son No problems noted. Son No problems noted. Son No problems noted. Other Substance use disorder Social History Housing: Apartment Alcohol intake: never Patient Tobacco Use Status: Current someday Tobacco user Tobacco use type: Cigarette Cigarette Packs Per Day: 0 Cigarettes Per Day: 4 e-Cigarette/Vaping Use: Never Used service: No Current occupational status: retired Current occupation: Right hand dominate Cognitive needs: No Hearing needs: No Vision needs: Yes Questionnaire PHQ-9 Over the last 2 weeks, how often have you been bothered by any of the following problems? 15229 - PHQ-9 Billing: Patient declined-do not bill Source: Developed by Drs. Ortiz Mike, Yessenia Quintana, Fernando Eller and colleagues, with an educational papito from [employer]. Thrive Questionnaire Date Thrive assessed: 07/29/23 What is your living situation today?: I choose not to answer this question Within the past 12 months, did the food you bought not last and you didn't have the money to get more?: I choose not to answer this question Within the past 12 months, did you worry whether your food would run out before you got money to buy more?: I choose not to answer this question Do you have trouble paying for medicines?: I choose not to answer this question Do you have trouble getting transportation to medical appointments?: I choose not to answer this question Do you have trouble paying your heating and electricity bill?: I choose not to answer this question Do you have trouble taking care of your child, family member or friend?: I choose not to answer this question Do you have trouble with day-to-day activities such as bathing, preparing meals, shopping, managing finances, etc.?: I choose not to answer this question Are you currently unemployed and looking for a job?: I choose not to answer this question Are you interested in more education?: I choose not to answer this question THRIVE Score: 0 AUDIT C Alcohol Use Questionnaire (AUDIT-C) 1. How often do you have a drink containing alcohol?: Never Total Score: 0 KAYLA-7 AMB Questionnaire KAYLA-7 Date KAYLA - 7 assessed: 07/29/23 Source: Developed by Drs. Ortiz Mike, Yessenia Quintana, Fernando Eller and colleagues, with an educational papito from [employer]. KAYLA-7 Assessment Billing KAYLA-7 Assessment Tool: pt declined-do not bill Review of Systems Const Denies chills, Denies fatigue, Denies fever(s), Denies frequent falls and Denies weakness ENT Denies dizziness Card Denies chest pain, Denies leg edema, Denies lightheadedness, Denies palpitations, Denies dyspnea and Denies dyspnea on exertion Resp Denies cough, Denies dyspnea and Denies dyspnea on exertion GI Denies bloating and Denies change in bowel habits Reports no additional complaints Musc Denies muscle weakness, Denies numbness and Denies tingling Neuro Denies dizziness, Denies frequent falls, Denies numbness, Denies tingling and Denies weakness Endo Denies fatigue and Denies palpitations Gunner/Lymph Reports no additional complaints Physical exam (Primary Care) Vital Signs: Last Vital Signs Pulse 82 07/29/23 12:42 BP 132/68 07/29/23 12:42 Pulse Ox 99 07/29/23 12:42 Oxygen Delivery Method Room Air 07/29/23 12:42 BMI result Body Mass Index 18.8 Tobacco/Smoking Status: Tobacco use Status Tobacco use date assessed 07/29/23 07/29/23 11:57 Patient Tobacco Use Status Current someday Tobacco 07/29/23 11:55 Tobacco use type Cigarette 07/29/23 11:55 e-Cigarette/Vaping Use Never Used 07/29/23 11:55 Are you ready to quit: No Thrive Assessment: Date of Thrive Assessment Date Thrive assessed 07/29/23 07/29/23 12:50 Const General: comfortable and no acute distress Nutritional Appearance: average body habitus Orientation/consciousness: patient oriented x3 HENMT Ears: external ears normal, TM's normal bilaterally and EAC's normal General nose exam: Normal external nose present and No nasal discharge present Neck Neck: Yes full ROM, Yes no lymphadenopathy and Yes supple Thyroid: Thyroid normal Resp Auscultation: clear to auscultation bilaterally Cardio Rate: regular rate Rhythm: regular rhythm Heart sounds: S1 normal heart sound present and S2 normal heart sound present Bruits: carotid bruit on the left GI Inspection: Yes normal to inspection Palpation (GI): Soft to palpation, nontender and no guarding Auscultation: normal bowel sounds General: Yes no CVA tenderness Back/Spine/Pelvis Back: no CVA tenderness and No back tenderness Neuro General: patient oriented x3, gait normal, tone normal, moves all extremities, Normal light touch and pain sensation, no focal motor deficits and CN's II-XI intact bilaterally Extrem Other: Ulnar deviation fingers of both hands, with positive Heberden's nodes General: Yes full ROM Psych Appearance: grossly normal and well kempt Mental Status: mental status grossly normal Speech and movement: Normal speech and movement present Affect: normal affect Attitude: cooperative Thought process: Normal thought process present Thought content: Normal thought content present Assessment and Plan Assessment & Plan (1) Bilateral carotid artery stenosis: Code(s): I65.23 - Occlusion and stenosis of bilateral carotid arteries Plan: is asymptomatic carotid disease. discussed risk factor modification inclusive a healthy diet low in cholesterol. scheduled by vascular surgery for surveillance ultrasound of the carotids in six-month. Orders (2) COPD (chronic obstructive pulmonary disease): Code(s): J44.9 - Chronic obstructive pulmonary disease, unspecified Qualifiers: COPD type: unspecified COPD Qualified Code(s): J44.9 - Chronic obstructive pulmonary disease, unspecified Plan: Continue Anoro Ellipta and albuterol inhaler as needed. Strongly encouraged to quit smoking but patient unmotivated to quit at present time but has cut back on her cigarettes per day (3) HTN (hypertension): Code(s): I10 - Essential (primary) hypertension Qualifiers: Hypertension type: primary hypertension Qualified Code(s): I10 - Essential (primary) hypertension Plan: Blood pressure at goal of less than 130/80. Continue with current medication. Reinforced importance of following a low sodium diet, getting regular exercise, and lowering stress levels. (4) Dyslipidemia: Code(s): E78.5 - Hyperlipidemia, unspecified Plan: Repeat fasting lipid panel currently on rosuvastatin 5 mg daily (5) Abnormal EKG: Code(s): R94.31 - Abnormal electrocardiogram [ECG] [EKG] Plan: EKG done showed normal sinus rhythm with occasional PVCs and right bundle branch block. Cardiology consult ordered Orders: Orders Lipid Panel 07/29/23 I65.23 - Occlusion and stenosis of bilateral carotid arteries, J44.9 - Chronic obstructive pulmonary disease, unspecified, Z86.73 - Personal history of transient ischemic attack (TIA), and cerebral infarction without residual deficits, Z78.0 - Asymptomatic menopausal state, M81.0 - Age-related osteoporosis without current pathological fracture, I10 - Essential (primary) hypertension, E78.5 - Hyperlipidemia, unspecified Vitamin D 25-OH Total 07/29/23 I65.23 - Occlusion and stenosis of bilateral carotid arteries, J44.9 - Chronic obstructive pulmonary disease, unspecified, Z86.73 - Personal history of transient ischemic attack (TIA), and cerebral infarction without residual deficits, Z78.0 - Asymptomatic menopausal state, M81.0 - Age-related osteoporosis without current pathological fracture, I10 - Essential (primary) hypertension, E78.5 - Hyperlipidemia, unspecified Complete Blood Count Auto Diff 07/29/23 I65.23 - Occlusion and stenosis of bilateral carotid arteries, J44.9 - Chronic obstructive pulmonary disease, unspecified, Z86.73 - Personal history of transient ischemic attack (TIA), and cerebral infarction without residual deficits, Z78.0 - Asymptomatic menopausal state, M81.0 - Age-related osteoporosis without current pathological fracture, I10 - Essential (primary) hypertension, E78.5 - Hyperlipidemia, unspecified Alanine Aminotransferase 07/29/23 I65.23 - Occlusion and stenosis of bilateral carotid arteries, J44.9 - Chronic obstructive pulmonary disease, unspecified, Z86.73 - Personal history of transient ischemic attack (TIA), and cerebral infarction without residual deficits, Z78.0 - Asymptomatic menopausal state, M81.0 - Age-related osteoporosis without current pathological fracture, I10 - Essential (primary) hypertension, E78.5 - Hyperlipidemia, unspecified Aspartate Amino Transferase 07/29/23 I65.23 - Occlusion and stenosis of bilateral carotid arteries, J44.9 - Chronic obstructive pulmonary disease, unspecified, Z86.73 - Personal history of transient ischemic attack (TIA), and cerebral infarction without residual deficits, Z78.0 - Asymptomatic menopausal state, M81.0 - Age-related osteoporosis without current pathological fracture, I10 - Essential (primary) hypertension, E78.5 - Hyperlipidemia, unspecified Basic Metabolic Panel Fasting 07/29/23 I65.23 - Occlusion and stenosis of bilateral carotid arteries, J44.9 - Chronic obstructive pulmonary disease, unspecified, Z86.73 - Personal history of transient ischemic attack (TIA), and cerebral infarction without residual deficits, Z78.0 - Asymptomatic menopausal state, M81.0 - Age-related osteoporosis without current pathological fracture, I10 - Essential (primary) hypertension, E78.5 - Hyperlipidemia, unspecified Vitamin B12 and Folate 07/29/23 I65.23 - Occlusion and stenosis of bilateral carotid arteries, J44.9 - Chronic obstructive pulmonary disease, unspecified, Z86.73 - Personal history of transient ischemic attack (TIA), and cerebral infarction without residual deficits, Z78.0 - Asymptomatic menopausal state, M81.0 - Age-related osteoporosis without current pathological fracture, I10 - Essential (primary) hypertension, E78.5 - Hyperlipidemia, unspecified Referrals Cardiology Referral R94.31 - Abnormal electrocardiogram [ECG] [EKG], I65.23 - Occlusion and stenosis of bilateral carotid arteries, Z86.73 - Personal history of transient ischemic attack (TIA), and cerebral infarction without residual deficits, I10 - Essential (primary) hypertension Medications: Refilled lisinopril 10 mg PO DAILY 90 tabs 4RF Coding Level of Care Code Est Pt Level 4 (58581) Complex EM visit Add On G2211 Diagnoses Bilateral carotid artery stenosis I65.23 Chronic obstructive pulmonary disease, unspecified COPD type J44.9 COPD type: unspecified COPD Primary hypertension I10 Hypertension type: primary hypertension Dyslipidemia E78.5 Abnormal EKG R94.31
[2023-07-29 12:42] VITALS: BP 132/68; PULSE 82; O2SAT 99; BMI 18.8
== END 2023-07-29 15:24 | disposition home or self-care (01) ==
PROVIDERS: PCP Internal Medicine; Visit Provider Internal Medicine
DX: I65.23 Occlusion and stenosis of bilateral carotid arteries (principal); J44.9 Chronic obstructive pulmonary disease, unspecified; I10 Essential (primary) hypertension; E78.5 Hyperlipidemia, unspecified; R94.31 Abnormal electrocardiogram [ECG] [EKG]
CPT/HCPCS: 99499

== ENCOUNTER 2023-07-29 13:16 | Outpatient (REF) | payer OTHER, SELFPAY ==
[2023-07-29 16:04] LABS: MANUAL DIFF FLAG NO
[2023-07-29 16:14] LABS: Basophils Percent Auto 0.5 % (0-2); Eosinophils Absolute Auto 0.3 X10*3/uL (0.0-0.4); Eosinophils Percent Auto 3.9 % (0-4); Hematocrit 39.7 % (37.0-47.0); Hemoglobin 12.7 g/dl (12.0-16.0); Imm Gran Abs Auto 0.03 X10*3/uL (0.00-0.03); Imm Gran Pct Auto 0.4 % (0.0-0.4); Lymphocytes Absolute Auto 1.8 X10*3/uL (1.2-4.9); Lymphocytes Percent Auto 23.7 % (20-40); Mean Corpuscular Hemoglobin 31.5 pg (27.0-33.0); Mean Corpuscular Volume 98.5 fL (80.0-98.0); Mean Platelet Volume 11.4 fL (9.4-12.3); Monocytes Absolute Auto 0.5 X10*3/uL (0.1-1.2); Monocytes Percent Auto 6.2 % (2-11); Neutrophils Absolute Auto 5.1 x10*3/uL (2.0-8.3); Neutrophils Percent Auto 65.3 % (45-73); Platelet Count 154 X10*3/uL (160-400); Red Blood Count 4.03 X10*6/uL (4.20-5.50); Red Cell Distribution Width 12.5 % (11.0-16.0); White Blood Count 7.7 X10*3/uL (4.8-10.8)
[2023-07-29 16:33] LABS: Alanine Aminotransferase 13 U/L (0-31); Anion Gap 15 (12-20); Aspartate Amino Transferase 17 U/L (5-31); Blood Urea Nitrogen 18 mg/dL (9-16); Calcium 10.3 mg/dL (8.4-10.2); Carbon Dioxide 27 mmol/L (22-29); Chloride 106 mmol/L (96-108); Cholesterol 158 mg/dL (<200); Estimated Glomerular Filt Rate > 60; Glucose Fasting 77 mg/dL (60-99); HDL Cholesterol 64 mg/dL (>40); LDL Cholesterol Calculated 73 mg/dL (<100); Potassium 4.5 mmol/L (3.3-5.1); Sodium 143 mmol/L (135-145); Triglycerides 108 mg/dL (<150)
[2023-07-29 17:01] LABS: Folate 11.6 ng/mL (> or = 4.0); Vitamin B12 563 pg/mL (200-900)
== END 2023-07-29 13:17 | disposition home or self-care (01) ==
LOC: HO.HMGCLDS 13:16
PROVIDERS: PCP Internal Medicine; Visit Provider Internal Medicine
DX: I65.23 Occlusion and stenosis of bilateral carotid arteries (principal); J44.9 Chronic obstructive pulmonary disease, unspecified; M81.0 Age-related osteoporosis without current pathological fracture; I10 Essential (primary) hypertension; E78.5 Hyperlipidemia, unspecified; Z86.73 Personal history of transient ischemic attack (TIA), and cerebral infarction without residual deficits; Z78.0 Asymptomatic menopausal state
CPT/HCPCS: 36415; 80048; 80061; 82306; 82607; 82746; 84450; 84460; 85025

== ENCOUNTER 2023-09-11 12:38 | Outpatient (AMB) | payer OTHER, SELFPAY ==
[2023-09-11 12:41] VITALS: BMI 18.8
--- NOTE | 2023-09-11 12:41 | A.OFFVIS_ITS ---
Intake Vital Signs 09/11/23 12:41 Height 4 ft 9 in Weight 87 lb BMI 18.8 Intake Visit Reasons: OV - RT shoulder pain Intake Note: Sari is a 88 year old Right hand dominate female who presents with Right shoulder pain that radiates to her fingers. Patient reports it has been going on for about a week and is a 9 on the 1-10 pain scale. She states she can't lift her arm up without pain. She denies injury,injection, and surgery She is using Tylenol for the pain with no relief. Allergies codeine [Codeine] Allergy (Mild, Verified 09/11/23 12:48) NAUSEA AND VOMITING azithromycin [From ZITHROMAX Z-EWA] Adverse Reaction (Intermediate, Verified 09/11/23 12:48) N/V/D, severe GI upset HPI OV - RT shoulder pain HPI Details 88-year-old right hand dominant female lori lorenzana presents in the office today for an evaluation of right shoulder pain. Patient reports her right shoulder pain radiates to her fingers. She states this has been present for a week. She reports her pain is a 9/10. She claims she can lift her arm up with out pain. She denies any known injury. Patient denies trialing injections or surgery. She confirms the use of Tylenol for pain with no relief. [facility] Medical History (Updated 09/11/23 @ 13:31 by Alea Perry) Abnormal EKG COPD (chronic obstructive pulmonary disease) Stenosis of left carotid artery greater than 50% Chronic cough Hx of transient ischemic attack (TIA) Spongiotic dermatitis Lichen sclerosus Cerumen impaction Tenosynovitis of both wrists Eczema Tachycardia, paroxysmal History of melena Intertrigo Smoker unmotivated to quit Vertigo Menopause Osteoporosis Dyslipidemia HTN (hypertension) Surgical History H/O: hysterectomy History of colonoscopy History of cataract surgery History of appendectomy Family History Father No problems noted. Mother No problems noted. Sister No problems noted. Son No problems noted. Son No problems noted. Son No problems noted. Son No problems noted. Other Substance use disorder Social History (Updated 09/11/23 @ 12:49 by Cait Wolfe CMA) Housing: Apartment Alcohol intake: never Patient Tobacco Use Status: Current someday Tobacco user Tobacco use type: Cigarette Cigarette Packs Per Day: 0 Cigarettes Per Day: 4 e-Cigarette/Vaping Use: Never Used service: No Current occupational status: retired Current occupation: Right hand dominate Cognitive needs: No Hearing needs: No Vision needs: Yes Review of Systems Const All systems reviewed & are unremarkable except as noted in HPI and below Physical Exam Vital Signs: BMI result Body Mass Index 18.8 Const General: cooperative, healthy appearing and no acute distress Resp Effort & Inspection: normal respiratory effort and able to speak in complete sentences Cardio Rate: regular rate Peripheral pulses: Peripheral pulses 2+ throughout GI Palpation (GI): Soft to palpation Skin Lesions: no lesions Rashes: no rashes Extrem Other: Right shoulder: Forward flexion and abduction to 90 degrees. External rotation to neutral. Pain with cross-body reach. Unable to assess empty can or drop arm due to pain. NVI. Office Procedures Joint Injection/Drain Joint Injection/Drain Primary Site: right shoulder Prep: site was prepped using aseptic technique, ethochloride spray was applied and injection warnings given Injected: 80 mg of, DepoMedrol, with 8 mL of and in the subcromial space Approach Used: posterolateral Procedure: The patient tolerated the procedure well, but had some pain with the injection and there was some relief with the local anesthesia Coding 93133 - Large joint Procedure code (CPT) selection complete Assessment & Plan Assessment & Plan (1) Calcific tendonitis of right shoulder: Code(s): M75.31 - Calcific tendinitis of right shoulder Plan Ms. Monroe is an 88-year-old right hand dominant female who presents in the office today for an evaluation of right shoulder pain. Patient reports her right shoulder pain radiates to her fingers. She states this has been present for a week. She reports her pain is a 9/10. She claims she can lift her arm up with out pain. She denies any known injury. Patient denies trialing injections or surgery. She confirms the use of Tylenol for pain with no relief. The patient was offered a cortisone injection in the right shoulder with 80 mg of DepoMedrol. The patient was explained the risk, benefits, and alternatives to receiving this injection. After receiving consent for the injection, the patient had the procedure done while in office today. The patient tolerated the procedure well with no complications. Follow up will be PRN, or sooner if needed. X-rays of the right shoulder which were obtained while in the office today and were reviewed by me, Rona Wright PA-C, revealed calcific tendonitis. Orders: Orders XR shoulder RT min 2V Today M25.519 - Pain in unspecified shoulder Patient Instructions: Scribed by Alea Perry medical registrar, for Rona Wright PA-C on 09/11/2023 at 12:42 pm, EST. Coding Level of Care Code Est Pt Level 4 (76923) Diagnoses Calcific tendonitis of right shoulder M75.31 CPT Codes Coding - 15917 Large joint: 92955 - Large joint ([id number])
== END 2023-09-11 13:31 | disposition home or self-care (01) ==
PROVIDERS: PCP Internal Medicine; Visit Provider Physician Assistant
DX: M75.31 Calcific tendinitis of right shoulder (principal)
CPT/HCPCS: 20610; 99214

== ENCOUNTER 2023-09-11 12:38 | Outpatient (REF) | payer OTHER, SELFPAY ==
--- NOTE | ~2023-09-11 | XR_ITS ---
EXAMINATION: XR SHOULDER, RIGHT CLINICAL INFORMATION: Shoulder pain COMPARISON: None available. TECHNIQUE: Three views of the right shoulder. FINDINGS: Osteopenia. No acute fracture or dislocation. There are prominent multiple calcifications clustered along the anterior aspect of the humeral head, the cluster overall measuring approximately 3.5 cm transverse. This could reflect calcific tendinitis, loose bodies. Mild acromioclavicular arthritis. Glenohumeral joint space is maintained. No suspicious findings in the visualized lung. XR/XR shoulder RT min 2V IMPRESSION: Prominent calcifications along the anterior aspect of the humeral head, overall cluster measuring 3.5 cm transverse. Differential consideration includes calcific tendinitis, loose bodies. This can be further evaluated with MRI. Osteopenia. No evidence of acute fracture.
== END 2023-09-11 12:39 | disposition home or self-care (01) ==
LOC: HO.HOSX 12:38
PROVIDERS: PCP Internal Medicine; Visit Provider Physician Assistant
DX: M25.511 Pain in right shoulder (principal); M75.31 Calcific tendinitis of right shoulder; M85.80 Other specified disorders of bone density and structure, unspecified site
CPT/HCPCS: 20610; 73030; 99212; J1010; J1040

== ENCOUNTER 2023-10-14 13:36 | Outpatient (AMB) | payer OTHER, SELFPAY ==
[2023-10-14 13:41] VITALS: BP 130/60; PULSE 72; BMI 18.7
--- NOTE | 2023-10-14 13:41 | MHC.OFFVIS ---
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 Accompanied by: Self / Same As Patient Allergies codeine [Codeine] Allergy (Mild, Verified 09/11/23 12:48) NAUSEA AND VOMITING azithromycin [From ZITHROMAX Z-EWA] Adverse Reaction (Intermediate, Verified 09/11/23 12:48) N/V/D, severe GI upset Medication List - Last Reconciled 10/14/23 by Paul Xie MD acetaminophen 650 mg PO Q6H PRN albuterol sulfate 90 mcg/actuation 2 puffs inhalation Q6H PRN aspirin (Adult Low Dose Aspirin) 81 mg PO DAILY cholecalciferol (vitamin D3) 50 mcg PO DAILY clobetasol 0.05% (Temovate) 1 appl topical DAILY hydrocortisone 2.5% (Proctosol HC) 1 appl NM BID-QID PRN lisinopril 10 mg PO DAILY loratadine (Allergy Relief (loratadine)) 10 mg PO DAILY rosuvastatin 5 mg PO DAILY umeclidinium-vilanterol 62.5-25 mcg/actuation (Anoro Ellipta) 1 inh inhalation Q24H HPI Comments Details: Sari has been referred for evaluation of question of abnormal EKG but there is no recent EKG available. She also been referred for evaluation of carotid stenosis but it seems she already saw vascular surgery. Overall, no clear-cut cardiac symptoms. No history of any coronary artery disease or myocardial infarction or cardiomyopathy. She states she is actually doing well and does not get any chest pains or any other cardiac symptoms. 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 Mother No problems noted. Sister No problems noted. Son No problems noted. Son No problems noted. Son No problems noted. Son No problems noted. Other Substance use disorder Social History Housing: Apartment Alcohol intake: never Patient Tobacco Use Status: Current someday Tobacco user Tobacco use type: Cigarette Cigarette Packs Per Day: 0 Cigarettes Per Day: 4 e-Cigarette/Vaping Use: Never Used service: No Current occupational status: retired Current occupation: Right hand dominate Cognitive needs: No Hearing needs: No Vision needs: Yes Review of Systems Const Denies chills, Denies fatigue, Denies fever(s), Denies frequent falls, Denies weakness, Denies weight gain and Denies weight loss ENT Denies dizziness Card Denies chest pain, Denies leg edema, Denies lightheadedness, Denies palpitations, Denies dyspnea, Denies dyspnea on exertion and Denies orthopnea Resp Denies cough, Denies dyspnea and Denies dyspnea on exertion GI Denies bloating and Denies change in bowel habits Musc Denies muscle weakness, Denies numbness and Denies tingling Neuro Denies dizziness, Denies frequent falls, Denies numbness, Denies tingling and Denies weakness Endo Denies fatigue and Denies palpitations Physical Exam Vital Signs: Last Vital Signs Pulse 72 10/14/23 13:41 BP 130/60 10/14/23 13:41 BMI result Body Mass Index 18.7 Const General: comfortable and no acute distress Orientation/consciousness: patient oriented x3 HEENT Other: Unremarkable Head: Yes normal to inspection Neck Neck: Yes normal visual inspection Chest Chest palpation & inspection: normal inspection of the chest Resp Auscultation: clear to auscultation bilaterally Cardio Palpation: normal PMI Heart sounds: S1 normal heart sound present, S2 normal heart sound present, no gallops, no murmurs and no rubs GI Palpation (GI): Soft to palpation Back/Spine/Pelvis Other: unremarkable Skin General skin exam: no rashes or lesions noted Neuro General: patient oriented x3 Extrem General: Yes normal to inspection Psych Mental Status: mental status grossly normal Office Procedures EKG Details: EKG shows sinus rhythm at 72/Min; premature supraventricular complexes; leftward axis; right bundle-branch block. Similar to prior EKG. [id number], Complete Assessment & Plan Assessment & Plan (1) Abnormal EKG: Code(s): R94.31 - Abnormal electrocardiogram [ECG] [EKG] Category: Medical (2) Underweight due to inadequate caloric intake: Code(s): R63.6 - Underweight Category: Medical (3) HTN (hypertension): Code(s): I10 - Essential (primary) hypertension Category: Medical Qualifiers: Hypertension type: primary hypertension Qualified Code(s): I10 - Essential (primary) hypertension (4) Dyslipidemia: Code(s): E78.5 - Hyperlipidemia, unspecified Category: Medical (5) Smoker unmotivated to quit: Code(s): F17.200 - Nicotine dependence, unspecified, uncomplicated Category: Social Hx Plan EKG as described above. She looks quite underweight. Carotid ultrasound shows left-sided moderate carotid stenosis. Suspect at her age and with risk factors including smoking, hypertension, dyslipidemia, there is probably some coronary disease. However, she has got absolutely no symptoms. With frailty, advanced age and low body weight, do not recommend any aggressive care. Mainly risk factor modification. If able, quit smoking but I doubt she will. Management of blood pressure/cholesterol. Advised to contact with any concerns like angina and she understands. Coding Level of Care Code New Pt Level 3 (52177) Diagnoses Abnormal EKG R94.31 Underweight due to inadequate caloric intake R63.6 Primary hypertension I10 Hypertension type: primary hypertension Dyslipidemia E78.5 Smoker unmotivated to quit F17.200 CPT Codes EKG - CPT: 53240-[id number], Complete ([id number])
== END 2023-10-14 14:19 | disposition home or self-care (01) ==
PROVIDERS: PCP Internal Medicine; Visit Provider Internal Medicine
DX: R94.31 Abnormal electrocardiogram [ECG] [EKG] (principal); R63.6 Underweight; I10 Essential (primary) hypertension; E78.5 Hyperlipidemia, unspecified; F17.200 Nicotine dependence, unspecified, uncomplicated
CPT/HCPCS: 93010; 99203

== ENCOUNTER → 2023-10-14 13:36 | Outpatient (BNVA) | payer OTHER, SELFPAY | PROVIDERS: PCP Internal Medicine; Visit Provider Internal Medicine | DX: R94.31 Abnormal electrocardiogram [ECG] [EKG] (principal); R63.6 Underweight; I10 Essential (primary) hypertension; E78.5 Hyperlipidemia, unspecified; F17.210 Nicotine dependence, cigarettes, uncomplicated | CPT/HCPCS: 93005; 99202 ==

== ENCOUNTER 2024-01-14 13:29 | Outpatient (REF) | payer OTHER, SELFPAY ==
--- NOTE | ~2024-01-14 | US_ITS ---
EXAMINATION: US EXTRACRANIAL CAROTID DUPLEX, BILATERAL CLINICAL INFORMATION: Carotid stenosis COMPARISON: 03/12/2023 TECHNIQUE: Real-time ultrasound and Doppler techniques (integrating B-mode 2-D vascular images, Doppler spectral analysis and color-flow Doppler imaging) were utilized to interrogate the extracranial carotid arteries, the vertebral arteries and proximal subclavian arteries bilaterally. The degree of stenosis is determined by criteria similar to NASCET. FINDINGS: Right Side: 1. There is mild to moderate calcified atherosclerotic plaque seen in the bifurcation/proximal ICA region. 2. The common carotid artery PSV proximally is 61.6 cm/s and distally 85.1 cm/s. 3. The proximal internal carotid artery velocities are 120 cm/s systolic and 23.5 cm/s diastolic. 4. The proximal external carotid artery PSV is 235 cm/s. 5. The vertebral artery shows antegrade flow. 6. The subclavian artery waveforms are normal. Left Side: 1. There is mild calcified atherosclerotic plaque seen in the bifurcation/proximal ICA region. 2. The common carotid artery PSV proximally is 71.8 cm/s and distally 82.1 cm/s. 3. The proximal internal carotid artery velocities are 77.0 cm/s systolic and 19.3 cm/s diastolic. 4. The proximal external carotid artery PSV is 156 cm/s. 5. The vertebral artery shows antegrade flow. 6. The subclavian artery waveforms are normal. US/US carotid duplex BI IMPRESSION: 1. RIGHT: Minimal, non-hemodynamically significant stenosis of the proximal right internal carotid artery corresponding to a 0-49% stenosis by velocity criteria. 2. LEFT: Minimal, non-hemodynamically significant stenosis of the proximal left internal carotid artery corresponding to a 0-49% stenosis by velocity criteria.
== END 2024-01-14 13:30 | disposition home or self-care (01) ==
LOC: HO.US 13:29
PROVIDERS: PCP Internal Medicine; Visit Provider Surgery Vascular Surgery
DX: I65.23 Occlusion and stenosis of bilateral carotid arteries (principal)
CPT/HCPCS: 93880

== ENCOUNTER 2024-03-31 12:51 | Outpatient (AMB) | payer OTHER, SELFPAY ==
[2024-03-31 12:58] VITALS: BP 112/80; BMI 18.4
--- NOTE | 2024-03-31 12:58 | A.OFFVIS_ITS ---
Vital Signs 03/31/24 12:58 03/31/24 13:04 Height 4 ft 9 in Weight 85 lb BMI 18.4 BP 112/80 114/78 Blood Pressure Location Rt brachial Lt brachial Position Sitting Sitting Intake Visit Reasons: 6 mo follow up Carotid US 01/14/24 Intake Note: 6 mo follow up carotid US 01/14/24, pt has no complaints Accompanied by: Self / Same As Patient Allergies codeine [Codeine] Allergy (Mild, Verified 03/31/24 13:01) NAUSEA AND VOMITING azithromycin [From ZITHROMAX Z-EWA] Adverse Reaction (Intermediate, Verified 03/31/24 13:01) N/V/D, severe GI upset HPI HPI 6 mo follow up Carotid US 01/14/24: Details: Very pleasant and spry 88-year-old female presents for carotid surveillance follow-up. The initial workup began as syncopal episode that was about 2-3 years ago. She has had a ultrasound and a surveillance ultrasound 6 months later. She currently denies any lateralizing signs or symptoms such as weakness in an arm or leg, visual or speech disturbances. She smokes about a half pack per day and is a nondiabetic. 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 Mother No problems noted. Sister No problems noted. Son No problems noted. Son No problems noted. Son No problems noted. Son No problems noted. Other Substance use disorder Social History Housing: Apartment Alcohol intake: never Patient Tobacco Use Status: Current someday Tobacco user Tobacco use type: Cigarette Cigarette Packs Per Day: 0 Cigarettes Per Day: 4 e-Cigarette/Vaping Use: Never Used service: No Current occupational status: retired Current occupation: Right hand dominate Cognitive needs: No Hearing needs: No Vision needs: Yes Review of Systems Const All systems reviewed & are unremarkable except as noted in HPI and below Reports no additional complaints ENT Reports Normal hearing present Card Denies chest pain, Denies chest pain at rest, Denies chest pain with activity and Denies pedal edema Resp Denies cough GI Denies abdominal pain Musc Denies abnormal gait, Denies muscle cramps and Denies radiating pain into limb Skin/Breast Denies skin ulcer and Denies wounds Neuro Reports Normal hearing present and Denies abnormal gait Psych Reports no additional complaints Physical Exam Vital Signs: Last Vital Signs BP 114/78 03/31/24 13:04 BMI result Body Mass Index 18.4 Const General: cooperative, healthy appearing and comfortable Orientation/consciousness: oriented to person, oriented to place and oriented to time HEENT Head: Yes normal to inspection Neck Neck: Yes normal visual inspection Carotids: no bruits Chest Chest palpation & inspection: normal inspection of the chest Resp Effort & Inspection: normal respiratory effort and able to speak in complete sentences Auscultation: clear to auscultation bilaterally, no crackles, no rales, no rhonchi and no wheezes Cardio Rate: regular rate Rhythm: regular rhythm Heart sounds: S1 normal heart sound present and S2 normal heart sound present Bruits: no carotid bruits Peripheral pulses: Peripheral pulses 2+ throughout GI Inspection: Yes normal to inspection Skin Wounds: no wounds Hair: normal Neuro General: oriented to person, oriented to place and oriented to time Cranial nerves: Yes CN's II-XII intact bilaterally and Yes Normal hearing present Cognition (Neuro): normal cognition Motor exam (neuro): 5/5 motor strength present throughout Extrem Other: venous exam: No significant superficial varicosities or spider telangiectasias, minimal edema General: No clubbing, No cyanosis and No edema Psych Appearance: grossly normal Mental Status: mental status grossly normal Speech and movement: Normal speech and movement present Results Reviewed Results Reviewed: Ultrasound testing dated 01/14/2024 demonstrates bilateral 0-49% stenosis with a peak systolic in the right of 120 and in the left of 77. Assessment & Plan Assessment & Plan (1) Bilateral carotid artery stenosis: Code(s): I65.23 - Occlusion and stenosis of bilateral carotid arteries Category: Medical Plan: In short patient has stable carotid disease. I do believe that both sides are at a low-level of stenosis. Would not recommend any intervention or further follow-up. We did discuss routine conservative measures and risk factor modification inclusive of a healthy diet and the importance of ambulation and exercise. Due to her overall age I do not think it is worth repeating studies at such a low degree of stenosis. This was discussed in detail with the patient and she was in agreement. She will follow up with us on an as-needed basis. Coding Level of Care Code Est Pt Level 4 (81282) Complex EM visit Add On G2211 Diagnoses Bilateral carotid artery stenosis I65.23
[2024-03-31 13:04] VITALS: BP 114/78
== END 2024-03-31 13:12 | disposition home or self-care (01) ==
PROVIDERS: PCP Internal Medicine; Visit Provider Surgery Vascular Surgery
DX: I65.23 Occlusion and stenosis of bilateral carotid arteries (principal)
CPT/HCPCS: 99214; G2211

== ENCOUNTER → 2024-03-31 12:51 | Outpatient (BNVA) | payer OTHER, SELFPAY | PROVIDERS: PCP Internal Medicine; Visit Provider Surgery Vascular Surgery | DX: I65.23 Occlusion and stenosis of bilateral carotid arteries (principal); F17.210 Nicotine dependence, cigarettes, uncomplicated | CPT/HCPCS: 99212 ==

== ENCOUNTER 2024-05-27 14:27 | Outpatient (AMB) | payer OTHER, SELFPAY ==
--- NOTE | 2024-05-27 14:37 | MHC.OFFWIV ---
Intake Vital Signs 05/27/24 14:43 Height 4 ft 9 in Weight 84 lb BMI 18.2 BP 110/68 Blood Pressure Location Rt brachial Position Sitting Temp 97.8 F Temp Source Oral Intake Visit Reasons: EP-?UTI Intake Note: Patient here for frequent urination and burning that started 3 days ago. Patient Tobacco Use Status: Current someday Tobacco user Allergies codeine [Codeine] Allergy (Mild, Verified 05/27/24 14:44) NAUSEA AND VOMITING azithromycin [From ZITHROMAX Z-EWA] Adverse Reaction (Intermediate, Verified 05/27/24 14:44) N/V/D, severe GI upset Do you need a note to return to daycare/school/sports/work: No HPI HPI Comments History of Present Illness Details History of Present Illness The patient is an 88-year-old female presenting with urinary symptoms suggestive of a urinary tract infection. Symptoms began approximately three to four days ago. The patient reports dysuria characterized by burning during urination and mild urinary urgency. She reports a typical frequency of urination without any increase from her baseline. She denies any accompanying back pain or fever, though she has been monitoring her temperature due to feeling hot, potentially related to stress from caregiving duties. 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 There is no reported history of kidney stones, and she has not noticed any blood in her urine. A change in urine color was noted recently, but for the previous three days, the urine appeared normal. Physical Exam General: Cooperative, healthy appearing, comfortable, no acute distress and well developed Orientation: Patient oriented x3 Limitations: No limitations Head: Normal to inspection Ears: Hearing grossly normal bilaterally Nose: Normal external nose present Face and sinus: Normal facial exam Eyes: Appearance normal, both eyes and all related structures Neck: Normal visual inspection and Yes full ROM Respiratory: Normal respiratory effort and able to speak in complete sentences. 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 Mother No problems noted. Sister No problems noted. Son No problems noted. Son No problems noted. Son No problems noted. Son No problems noted. Other Substance use disorder Social History Housing: Apartment Alcohol intake: never Patient Tobacco Use Status: Current someday Tobacco user Tobacco use type: Cigarette Cigarette Packs Per Day: 0 Cigarettes Per Day: 4 e-Cigarette/Vaping Use: Never Used service: No Current occupational status: retired Current occupation: Right hand dominate Cognitive needs: No Hearing needs: No Vision needs: Yes Review of Systems Const All systems reviewed & are unremarkable except as noted in HPI and below Physical Exam Vital Signs: Last Vital Signs Temp 97.8 F 05/27/24 14:43 BP 110/68 05/27/24 14:43 BMI result Body Mass Index 18.2 Results AMB Urinalysis, Automated UA Leukoctes 70 Jameson/uL Last Edit by GHAZAL Ford on 05/27/24 15:05 UA Nitrite Negative Last Edit by GHAZAL Ford on 05/27/24 15:05 UA Urobilinogen 0.2 mg/dL Last Edit by GHAZAL Ford on 05/27/24 15:05 UA Protein 100 mg/dL Last Edit by GHAZAL Ford on 05/27/24 15:05 UA pH 6.0 Last Edit by GHAZAL Ford on 05/27/24 15:05 UA Blood 200 Yobany/uL Last Edit by GHAZAL Ford on 05/27/24 15:05 UA Specific [place] 1.030 Last Edit by GHAZAL Ford on 05/27/24 15:05 UA Ketone Negative Last Edit by GHAZAL Ford on 05/27/24 15:05 UA Bilirubin 0 mg/dL Last Edit by GHAZAL Ford on 05/27/24 15:05 UA Glucose 0 mg/dL Last Edit by GHAZAL Ford on 05/27/24 15:05 Assessment & Plan Assessment & Plan (1) UTI (urinary tract infection): Code(s): N39.0 - Urinary tract infection, site not specified Qualifiers: Urinary tract infection type: acute cystitis Hematuria presence: with hematuria Qualified Code(s): N30.01 - Acute cystitis with hematuria Plan: - UA + for Leuks, neg nitrites and + blood, will send cx. - Initiate antibiotic therapy with a prescription called into the patient's pharmacy at [facility] on [address]. The patient is instructed to take the antibiotic every 12 hours for five days. - Urine culture has been ordered to confirm the bacterial etiology. The patient will be contacted if a change in antibiotic is required based on culture results. Patient was informed and verbally consented to the use of an ambient scribe for clinic note documentation during this visit. Orders: Orders Urine Culture Today N39.0 - Urinary tract infection, site not specified Medications: New cefuroxime axetil 500 mg PO Q12H 10 tabs 0RF Coding Level of Care Code Est Pt Level 3 (83390) Diagnoses Acute cystitis with hematuria N30.01 Urinary tract infection type: acute cystitis Hematuria presence: with hematuria
[2024-05-27 14:43] VITALS: BP 110/68; TEMP 36.6; BMI 18.2
== END 2024-05-27 15:36 | disposition home or self-care (01) ==
PROVIDERS: PCP Internal Medicine; Visit Provider Physician Assistant
DX: N30.01 Acute cystitis with hematuria (principal); Z13.9 Encounter for screening, unspecified

== ENCOUNTER 2024-05-27 14:27 | Outpatient (REF) | payer OTHER, SELFPAY ==
--- OUTSIDE RECORDS SUMMARY | 2024-05-27 14:55 | XMS_ITS | Continuity of Care Document ---
Author Organization [facility] [address] [place] [address] Phone [phone] Social History Type Date Description Comments Sex Unknown Medical Devices Description No Information Available Encounters Description No Information Available Assessments Description No Information Available Plan of Treatment No Information Available Functional Status Description No Information Available Mental Status Description No Information Available Referrals Description No Information Available
== END 2024-05-27 14:28 | disposition home or self-care (01) ==
LOC: HO.LAB 14:27
PROVIDERS: PCP Internal Medicine
DX: N30.01 Acute cystitis with hematuria (principal)
CPT/HCPCS: 81003; 99212

== ENCOUNTER 2024-07-22 09:00 | Inpatient (IN) | payer OTHER, SELFPAY ==
[2024-07-22] VITALS (20 sets, daily range): BP systolic 103–198; BP diastolic 46–100; PULSE 63–105; RESP 15–20; TEMP 36.1–36.7; O2SAT 94–100; BMI 16.6; BMI 19.0
--- NOTE | ~2024-07-22 | CT_ITS ---
EXAMINATION: CT ABDOMEN PELVIS WITH IV CONTRAST HISTORY: severe LLQ pain COMPARISON: There are no prior studies for comparison. TECHNIQUE: CT scan of the abdomen and pelvis was performed following administration of 85 mL Omnipaque 350 using standard departmental protocol. Coronal and sagittal reformatted images were generated and reviewed. Oral contrast material was not administered at the request of the referring physician. This CT exam was performed with one or more of the following dose reduction techniques: automated exposure control, adjustment of the mA and/or kV according to patient size, use of iterative reconstruction technique. DLP: 203 mGy-cm FINDINGS: LOWER CHEST: The visualized lung bases are clear. There is no pleural effusion. CARDIOVASCULATURE: The heart is normal in size. There is no pericardial effusion. LIVER: The liver is normal in size and contour. No liver mass is identified. The hepatic and portal veins are patent. GALLBLADDER / BILE DUCTS: The gallbladder is unremarkable. There is no intra or extrahepatic biliary ductal dilatation. SPLEEN: The spleen is normal in size. No focal splenic lesion is identified. PANCREAS: The pancreas is unremarkable in appearance. ADRENAL GLANDS: Within normal limits. KIDNEYS/RETROPERITONEUM: No renal calculi are identified. There is no hydronephrosis. There are subcentimeter cysts in both kidneys. LYMPH NODES: No abdominal or pelvic lymphadenopathy. VASCULATURE: The abdominal aorta demonstrates atherosclerotic calcification, but is normal in caliber. MESENTERY/PERITONEUM: No free fluid. No masses. There is no free intraperitoneal gas. STOMACH: The stomach is collapsed, limiting evaluation. SMALL BOWEL: The duodenum does not cross the spine, consistent with midgut malrotation. Proximal loops of small bowel are normal in caliber. There are multiple dilated fluid-filled loops of small bowel in the lower abdomen and pelvis with infiltration and fluid in the mesentery. Distal loops are collapsed. These findings are consistent with small bowel obstruction and are suspicious for a closed loop obstruction. COLON: The colon is collapsed. APPENDIX: The appendix is not seen, however no inflammatory changes are seen adjacent to the cecum. URINARY BLADDER/PELVIC ORGANS: The urinary bladder is unremarkable. The patient is status post hysterectomy. BONES / SOFT TISSUES: No suspicious bony or soft tissue abnormalities. CT/CT abdomen pelvis w IV con IMPRESSION: Findings consistent with midgut malrotation. Small bowel obstruction with suspicion for closed loop obstruction in the pelvis. These findings were discussed with Dr. Burch in the emergency room on 07/22/2024 at 11:55 AM. Electronically signed by: Ortiz Yost MD 07/22/2024 11:57 AM [facility]
[2024-07-22 09:38] LABS: MANUAL DIFF FLAG NO
[2024-07-22 09:43] LABS: Basophils Percent Auto 0.3 % (0-2); Eosinophils Percent Auto 0.1 % (0-4); Hematocrit 40.1 % (37.0-47.0); Hemoglobin 13.5 g/dl (12.0-16.0); Imm Gran Abs Auto 0.06 X10*3/uL (0.00-0.03); Imm Gran Pct Auto 0.6 % (0.0-0.4); Lymphocytes Absolute Auto 1.2 X10*3/uL (1.2-4.9); Lymphocytes Percent Auto 12.4 % (20-40); Mean Corpuscular HGB Conc 33.7 g/dl (31.0-35.0); Mean Corpuscular Hemoglobin 31.8 pg (27.0-33.0); Mean Corpuscular Volume 94.6 fL (80.0-98.0); Monocytes Absolute Auto 0.3 X10*3/uL (0.1-1.2); Monocytes Percent Auto 2.8 % (2-11); Neutrophils Absolute Auto 8.4 x10*3/uL (2.0-8.3); Neutrophils Percent Auto 83.8 % (45-73); Platelet Count 128 X10*3/uL (160-400); Red Blood Count 4.24 X10*6/uL (4.20-5.50); Red Cell Distribution Width 12.4 % (11.0-16.0)
--- NOTE | 2024-07-22 09:52 | ECG_ITS ---
Test Reason : abd pain Blood Pressure : */* mmHG Vent. Rate : 67 BPM Atrial Rate : 67 BPM P-R Int : 174 ms QRS Dur : 106 ms QT Int : 442 ms P-R-T Axes : 82 -58 44 degrees QTcB Int : 467 ms Normal sinus rhythm Incomplete right bundle branch block Left anterior fascicular block ST & T wave abnormality, consider anterior ischemia Abnormal ECG When compared with ECG of 24-Dec-2020 15:04, Premature atrial complexes are no longer Present Non-specific change in ST segment in Anterior leads Referred By: Dolores Burch Electronically Signed By: KRISTOPHER WORKMAN MD
--- NOTE | 2024-07-22 09:53 | ED.ABDPAIN ---
HPI - Abdominal Pain General Chief Complaint: Abdominal Pain Stated Complaint: abd pain Time Seen by Provider: 07/22/24 09:35 Source: patient, family and old records reviewed Mode of arrival: ambulatory Limitations: no limitations History of Present Illness ED Provider: ELLEN MORRISON narrative: 89 yo female PMH of COPD, HTN, HLD prior c section and hysterectomy here with abrupt onset LLQ abd pain and n/v. No fevers, did have BM this AM after having coffee. She notes she threw up on the way here. She has never had this pain before - denies hx of renal colic or diverticulitis. She has not had dysuria, GIB symptoms. No hx of afib MD elicited complaint: abdominal pain Pertinent past history: none Onset (ago): hour(s) (3am today) Pain Consistency: constant Location: LLQ Severity: severe Quality: stabbing Radiation: none Migration to: no migration Exacerbating factors: vomiting and movement Relieving factors: nothing Associated symptoms: nausea, vomiting and constipation Related Data Home Medications ?Medication ?Instructions ?Recorded ?Confirmed cholecalciferol (vitamin D3) 50 50 mcg PO DAILY 04/20/20 11/26/23 mcg (2,000 unit) capsule acetaminophen 325 mg tablet 650 mg PO Q6H PRN Sinus Symptoms 12/24/20 11/26/23 Previous Rx's ?Medication ?Instructions ?Recorded clobetasol 0.05 % topical ointment 1 appl topical DAILY #45 grams 09/11/22 (Temovate) loratadine 10 mg tablet (Allergy 10 mg PO DAILY #30 tabs 11/17/22 Relief (loratadine)) hydrocortisone 2.5 % topical cream 1 appl DC BID-QID PRN hemorrhoids 11/26/22 with perineal applicator #30 grams (Proctosol HC) lisinopril 10 mg tablet 10 mg PO DAILY #90 tabs 07/29/23 Ventolin HFA 90 mcg/actuation 2 puff inhalation Q6H PRN 11/27/23 aerosol inhaler (albuterol sulfate) shortness of breath or wheezing #18 grams rosuvastatin 5 mg tablet 5 mg PO DAILY #30 tabs 12/19/23 umeclidinium 62.5 mcg-vilanterol 1 inh inhalation Q24H #180 ea 02/10/24 25 mcg/actuation powdr for inhalation (Anoro Ellipta) aspirin 81 mg tablet,delayed 81 mg PO DAILY #30 tabs 02/16/24 release (Adult Low Dose Aspirin) cefuroxime axetil 500 mg tablet 500 mg PO Q12H #10 tabs 05/27/24 Allergies Allergy/AdvReac Type Severity Reaction Status Date / Time codeine [Codeine] Allergy Mild NAUSEA AND Verified 07/22/24 09:12 VOMITING azithromycin AdvReac Intermediate N/V/D, Verified 07/22/24 09:12 [From ZITHROMAX Z-EWA] severe GI upset Review of Systems Review of Systems Constitutional : No Weight loss, No Fever, No Chills ENT/Mouth : No sore throat, No Rhinorrhea Eyes: No Swelling, No Redness Cardiovascular : No Chest Pain, No SOB, NoEdema Respiratory : No Cough, No Sputum, No Wheezing Gastrointestinal : Positive Nausea, Positive Vomiting, no Diarrhea, positive abdominal Pain, No Hematochezia, No Melena, pos constipation Genitourinary : No Dysuria, No Urinary Frequency, No Hematuria, No Urgency Musculoskeletal : No joint pain, No Myalgias, No Joint Swelling Skin : No Skin Lesions, No rash Neuro : No Weakness, No Numbness, No Dizziness, No Headache All other systems reviewed and are negative. [facility] Past Medical History Attestation statement: The following information was validated with the patient. Source: old records reviewed Medical History Abnormal EKG COPD (chronic obstructive pulmonary disease) Stenosis of left carotid artery greater than 50% Chronic cough Hx of transient ischemic attack (TIA) Spongiotic dermatitis Lichen sclerosus Cerumen impaction Tenosynovitis of both wrists Eczema Tachycardia, paroxysmal History of melena Intertrigo Smoker unmotivated to quit Vertigo Menopause Osteoporosis Dyslipidemia HTN (hypertension) Surgical History H/O: hysterectomy History of colonoscopy History of cataract surgery History of appendectomy Family History Family History Father No problems noted. Mother No problems noted. Sister No problems noted. Son No problems noted. Son No problems noted. Son No problems noted. Son No problems noted. Other Substance use disorder Social History Social History Housing: Apartment Alcohol intake: never Patient Tobacco Use Status: Current someday Tobacco user Tobacco use type: Cigarette Cigarette Packs Per Day: 0 Cigarettes Per Day: 4 Smoked in Last 30 Days: Yes e-Cigarette/Vaping Use: Never Used Use of substances other than those prescribed or required for medical reasons: No Advance Directives: No Advance Directives Information Provided: Yes service: No Current occupational status: retired Current occupation: Right hand dominate Cognitive needs: No Hearing needs: No Vision needs: Yes Physical Exam ED Vital Signs: Vital Signs - 24 hr 07/22/24 09:08 07/22/24 10:30 07/22/24 12:33 Temperature 97.0 F 97.6 F 97.8 F Pulse Rate 70 63 71 Respiratory Rate 16 18 18 Blood Pressure 154/73 H 158/55 H 155/60 H Pulse Oximetry 98 99 97 Oxygen Delivery Method Room Air Room Air Room Air BMI result Body Mass Index 16.6 Appearance: Alert. Oriented X3. in pain mild acute distress. Eyes: Pupils equal, round and reactive to light. ENT: Pharynx normal. Neck: Normal inspection. Neck supple. CVS: Normal heart rate and rhythm. Pulses normal. Respiratory: No respiratory distress. Breath sounds normal. Abdomen: Soft and moderate LLQ pain with guarding, no rebound Skin: Skin warm and dry. Normal skin color. Normal skin turgor. Extremities: No lower extremity edema. No calf ttp Neuro: Oriented X 3. No motor deficit. No sensory deficit. CN2-12 intact Course Course Course Narrative: pain improved with morphine Medical Decision Making Medical Decision Making [facility] Narrative: 89 yo female PMH of COPD, HTN, HLD prior c section and hysterectomy here with c/o LLQ pain with n/v at this time will need basic labs, UA, CT scan for possible renal colic, diverticular disease, SBO. I have ordered EKG to rule afib for embolic event, IV morphine for pain. Differential Diagnosis Differential Diagnoses: The differential diagnosis associated with the presentation includes renal colic, bowel pathology, SBO Admission/Observation Consideration of admission/observation: Escalation of care including admission/observation considered needs admission for surgery Consult Healthcare Provider Management of the patient was discussed with: Voip Engineer message sent to Dr. Delta 1157am after call from rads about possible closed loop obstruction Lab Data [facility] Lab Attestation statement: I reviewed the patient's lab results. 07/22/24 09:33 07/22/24 09:33 Labs: Lab Results 07/22/24 07/22/24 07/22/24 Range/Units 09:33 10:00 12:11 WBC 10.0 (4.8-10.8) X10*3/uL RBC 4.24 (4.20-5.50) X10*6/uL Hgb 13.5 (12.0-16.0) g/dl Hct 40.1 (37.0-47.0) % MCV 94.6 (80.0-98.0) fL MCH 31.8 (27.0-33.0) pg MCHC 33.7 (31.0-35.0) g/dl RDW 12.4 (11.0-16.0) % Plt Count 128 L (160-400) X10*3/uL MPV 11.0 (9.4-12.3) fL Immature Gran % (Auto) 0.6 H (0.0-0.4) % Neut % (Auto) 83.8 H (45-73) % Lymph % (Auto) 12.4 L (20-40) % Hardin % (Auto) 2.8 (2-11) % Eos % (Auto) 0.1 (0-4) % Baso % (Auto) 0.3 (0-2) % Lymph # (Auto) 1.2 (1.2-4.9) X10*3/uL Hardin # (Auto) 0.3 (0.1-1.2) X10*3/uL Eos # (Auto) 0.0 (0.0-0.4) X10*3/uL Baso # (Auto) 0.0 (0.0-0.2) X10*3/uL Abs Immat Gran (auto) 0.06 H (0.00-0.03) X10*3/uL Absolute Neuts (auto) 8.4 H (2.0-8.3) x10*3/uL Absolute Nucleated RBC 0.000 (0.0-0.012) X10*3/uL Nucleated RBC % (auto) 0.0 (0.0-0.2) /100WBC PT (10.9-12.4) SEC INR (0.9-1.1) Sodium 135 (135-145) mmol/L Potassium 4.0 (3.3-5.1) mmol/L Chloride 104 (96-108) mmol/L Carbon Dioxide 22 (22-29) mmol/L Anion Gap 13 (12-20) BUN 17 H (9-16) mg/dL Creatinine 0.99 (0.5-1.4) mg/dL Estim Creat Clear Calc 22.4 Estimated GFR 53 Random Glucose 102 (60-115) mg/dL Lactic Acid 1.4 (0.5-2.0) mmol/L Calcium 10.4 H (8.4-10.2) mg/dL Total Bilirubin 0.5 (0.0-1.0) mg/dL Direct Bilirubin 0.2 (0.0-0.5) mg/dL AST 23 (5-31) U/L ALT 8 (0-31) U/L Alkaline Phosphatase 101 (39-117) U/L Total Protein 7.0 (6.5-8.0) g/dL Albumin 4.1 (3.5-5.0) g/dL Lipase 39 (8-78) U/L Blood Type B Positive Antibody Screen NEGATIVE 07/22/24 Range/Units 12:12 WBC (4.8-10.8) X10*3/uL RBC (4.20-5.50) X10*6/uL Hgb (12.0-16.0) g/dl Hct (37.0-47.0) % MCV (80.0-98.0) fL MCH (27.0-33.0) pg MCHC (31.0-35.0) g/dl RDW (11.0-16.0) % Plt Count (160-400) X10*3/uL MPV (9.4-12.3) fL Immature Gran % (Auto) (0.0-0.4) % Neut % (Auto) (45-73) % Lymph % (Auto) (20-40) % Hardin % (Auto) (2-11) % Eos % (Auto) (0-4) % Baso % (Auto) (0-2) % Lymph # (Auto) (1.2-4.9) X10*3/uL Hardin # (Auto) (0.1-1.2) X10*3/uL Eos # (Auto) (0.0-0.4) X10*3/uL Baso # (Auto) (0.0-0.2) X10*3/uL Abs Immat Gran (auto) (0.00-0.03) X10*3/uL Absolute Neuts (auto) (2.0-8.3) x10*3/uL Absolute Nucleated RBC (0.0-0.012) X10*3/uL Nucleated RBC % (auto) (0.0-0.2) /100WBC PT 10.1 L (10.9-12.4) SEC INR 0.9 (0.9-1.1) Sodium (135-145) mmol/L Potassium (3.3-5.1) mmol/L Chloride (96-108) mmol/L Carbon Dioxide (22-29) mmol/L Anion Gap (12-20) BUN (9-16) mg/dL Creatinine (0.5-1.4) mg/dL Estim Creat Clear Calc Estimated GFR Random Glucose (60-115) mg/dL Lactic Acid (0.5-2.0) mmol/L Calcium (8.4-10.2) mg/dL Total Bilirubin (0.0-1.0) mg/dL Direct Bilirubin (0.0-0.5) mg/dL AST (5-31) U/L ALT (0-31) U/L Alkaline Phosphatase (39-117) U/L Total Protein (6.5-8.0) g/dL Albumin (3.5-5.0) g/dL Lipase (8-78) U/L Blood Type Antibody Screen Independent Interpretation I performed an independent interpretation of an: EKG and CT Scan (abnormal ) Interpretation: Rate: 67 Rhythm: NSR Meacham: left Normal P waves. Normal RAKESH. RBBB. ST T wave : artifact but no SERVANDO, inverted T waves as expected V1-V2 qTC: 467 prior studies: no change from prior The study has been interpreted contemporaneously by me. . Radiology Impression Discussion of test interpretation with radiology: I discussed test interpretation with the radiologist and I have reviewed the radiologist's reading. Radiologist Impression: SBO with midgut malrotation Independent Historian Clinical information obtained from an independent historian. History obtained from or confirmed by: Other (family) External Record Review External record reviewed: Outpatient record Medications Administered Generic Name Dose Route Start Last Admin Trade Name Freq PRN Reason Stop Dose Admin Lactated Ringer's 1,000 mls @ 100 mls/hr 07/22/24 12:30 07/22/24 12:33 Lr IVCONT 100 mls/hr .Q10H DARSHANA Administration Discontinued Medications Generic Name Dose Route Start Last Admin Trade Name Freq PRN Reason Stop Dose Admin Acetaminophen 1,000 mg in 100 mls @ 400 mls/hr 07/22/24 09:51 07/22/24 10:29 Ofirmev IV 07/22/24 10:05 Not Given ONCE ONE Iohexol 100 ml 07/22/24 11:38 07/22/24 11:38 Iohexol 350 Mg/Ml 100 Ml Infus..Btl IV 07/22/24 11:39 85 ml ONCE ONE Administration Morphine Sulfate 2 mg 07/22/24 09:51 07/22/24 10:27 Morphine Sulfate 2 Mg/Ml Cartridge IVPUSH 07/22/24 09:52 2 mg ONCE ONE Administration Protocol Ondansetron HCl 4 mg 07/22/24 09:51 07/22/24 10:27 Ondansetron Hcl 4 Mg/2 Ml Vial IVPUSH 07/22/24 09:52 4 mg ONCE ONE Administration Critical Care Time Critical Care Time Critical Care Time: Yes Total Critical Care Time: 45 Attestation: stat call to surgery, pain improved with IV morphine, admission I attest to this time spent taking care of the patient Discharge Plan Discharge Clinical Impression: SBO (small bowel obstruction), Malrotation of intestine with midgut volvulus Patient Disposition: Admitted As Inpatient
[2024-07-22 09:57] LABS: Alanine Aminotransferase 8 U/L (0-31); Albumin Level 4.1 g/dL (3.5-5.0); Alkaline Phosphatase 101 U/L (39-117); Anion Gap 13 (12-20); Aspartate Amino Transferase 23 U/L (5-31); Bilirubin Direct 0.2 mg/dL (0.0-0.5); Bilirubin Total 0.5 mg/dL (0.0-1.0); Blood Urea Nitrogen 17 mg/dL (9-16); Calcium 10.4 mg/dL (8.4-10.2); Carbon Dioxide 22 mmol/L (22-29); Chloride 104 mmol/L (96-108); Creatinine Clr Calc Pharmacy 22.4; Estimated Glomerular Filt Rate 53; Glucose Random 102 mg/dL (60-115); Lipase 39 U/L (8-78); Sodium 135 mmol/L (135-145)
--- NOTE | 2024-07-22 10:17 | PC.NURSE ---
Pt is vomiting sml amounts. states she has diffuse abd pain since this am. drank coffee and took tylenol [facility]. reports 3 very small BMs today.
--- OUTSIDE RECORDS SUMMARY | 2024-07-22 10:17 | XMS_ITS | Patient Health Record ---
Author Organization [facility] Timi naif Segovia Address [address] [place] [address] Care Team Providers Care Metal Cut Off Saw Tender Name Role Phone Nate HOPPER, Crissy Roblero Primary Care Provider Un available Tod Tank Unavailable [phone] Allergies Allergen (clinical drug ingredient) Drug/Non Drug Allergy documented on EMR Reaction Allergy Type Onset Date Status codeine Codeine vomiting Drug Allergy Active Reason For Referral No Information Medications Medication SIG (Take, Route, Fr equency, Duration) Notes Start Date End Date Status Ammonium Lactate 12 % 1 application to a ffected area Externally to feet Twice a day for 30 days Active Lisinopril 10 MG 1 tablet Orally Once a day for 30 day(s) Active Immunizations Vaccine Route Administration Date Status Comme nts COVID-19 Pfizer BioNTech Vaccine Unknown 07/15/2020 Adm inistered Social History Tobacco Use: Social History Observation Description Date Details (start date - stop date) Current Smoker NA - NA Tobacco Use/Smoking Question Answer Notes Are you a: current smoker How often do you smoke cigarettes? every day How many cigarettes a day do you smoke? 6-10 Alcohol Screen Question Answer Notes Did you have a drink containing alcohol in the p ast year? No Points 0 Interpretation Negative Tobacco use other than smoking: Question Answer Notes Are you an other tobacco user? No Problems Problem Type SNOMED Code ICD Code Onset Dates Problem Status W/U Status Risk Notes Problem Tinea unguium (798981952) Tinea unguium (B35.1) Active confirmed Plan Of Treatment Pending Test Test Name Order Date [id number] NAIL, 6 OR MORE 01/16/2021 [id number] NAIL, 6 OR MORE 04/01/2021 [id number] Plate 01/16/2021 Insurance Providers Payer Name Payer Address Payer Phone Subscriber Number Group Number Insured Name Patient Relationship to Insured Coverage Start Date Coverage End Date [id number] [address] [address] [place] [address] [id number] [facility] [place]a mendenhallNovember Self - patient is the insured Medical (General) History Medical History History ICD Code Measles High blood pressure Sinus conditions Transfusions Surgical History Surgery Date(Month/Year) Hospitalization History Reason Date(Month/Year) [facility] [place] 12/2020
[2024-07-22] MEDS: ondansetron HCL 4 MG/2 ML VIAL IVPUSH (10:27)
[2024-07-22] MEDS: Morphine Sulfate 2 MG/ML CARTRIDGE IVPUSH ×2 (10:27→20:10)
[2024-07-22 10:29] LABS: Lactic Acid 1.4 mmol/L (0.5-2.0)
[2024-07-22] MEDS: iohexoL 350 MG/ML 100 ML INFUS..BTL IV (11:38)
[2024-07-22 12:25] LABS: INTERNATIONAL NORM RATIO 0.9 (0.9-1.1); Prothrombin Time 10.1 SEC (10.9-12.4)
[2024-07-22] MEDS: Lactated Ringers 1,000 ML 100 ML IVCONT (12:33)
--- NOTE | 2024-07-22 12:34 | PC.NURSE ---
pt aware of plan for surgery today. last PO was coffee this am aprox 8am
--- NOTE | 2024-07-22 12:48 | P.HPGS_ITS ---
History of Present Illness History of Present Illness Date of Service: 07/22/24 Chief complaint: abd pain Narrative: Sari Monroe is a 89 year old female with PMH significant for COPD, b/l carotid stenosis, HTN presenting with acute onset of severe abdominal pain. She she was awoken out of sleep around 3am by severe LLQ that became more diffuse in nature. She has never had similar episodes in the past. She denies passing flatus since the pain began. She tried to drink coffee as she just thought she was constipated and vomited this up. She had a few very small loose stools early this morning without alleviation in pain. She continues to feel nauseous and bloated. Work up in the ED included CBC, BMP, LFTs, PT/INR which was significant for plt of 128. CT scan abd pelvis was obtained which showed multiple dilated fluid-filled loops of small bowel in the lower abdomen and pelvis with infiltration and fluid in the mesentery with collapsed distal loops. She has surgical hx of C section, hysterectomy, appendectomy. She denies fever, chills, hematemesis, melena, sick contacts. 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 She denies chest pain, palpitations, dizziness. 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 Mother No problems noted. Sister No problems noted. Son No problems noted. Son No problems noted. Son No problems noted. Son No problems noted. Other Substance use disorder Surgical History Surgical History H/O: hysterectomy History of colonoscopy History of cataract surgery History of appendectomy Social History Social History Housing: Apartment Alcohol intake: never Patient Tobacco Use Status: Current someday Tobacco user Tobacco use type: Cigarette Cigarette Packs Per Day: 0 Cigarettes Per Day: 4 Smoked in Last 30 Days: Yes e-Cigarette/Vaping Use: Never Used Use of substances other than those prescribed or required for medical reasons: No Advance Directives: No Advance Directives Information Provided: Yes service: No Current occupational status: retired Current occupation: Right hand dominate Cognitive needs: No Hearing needs: No Vision needs: Yes Meds Allergies Allergy/AdvReac Type Severity Reaction Status Date / Time codeine [Codeine] Allergy Mild NAUSEA AND Verified 07/22/24 09:12 VOMITING azithromycin AdvReac Intermediate N/V/D, Verified 07/22/24 09:12 [From ZITHROMAX Z-EWA] severe GI upset Active Medications: Current Medications Lactated Ringer's (Lr) 1,000 mls @ 100 mls/hr IVCONT .Q10H DARSHANA Last Admin: 07/22/24 12:33 Dose: 100 mls/hr Morphine Sulfate (Morphine Sulfate 4 Mg/Ml Cartridge) 2 mg IVPUSH Q4H PRN; Protocol PRN Reason: Pain, Severe (Pain Scale 7-10) Ondansetron HCl (Ondansetron Hcl 4 Mg/2 Ml Vial) 4 mg IVPUSH Q8H PRN PRN Reason: Nausea and Vomiting Sodium Chloride (0.9 % Sodium Chloride Flush 3 Ml Syringe) 3 ml IVFLUSH QSHIFT [facility] Home Medications ?Medication ?Instructions ?Recorded ?Confirmed ?Last Taken ?Type cholecalciferol (vitamin D3) 50 50 mcg PO DAILY 04/20/20 11/26/23 12/23/20 History mcg (2,000 unit) capsule acetaminophen 325 mg tablet 650 mg PO Q6H PRN Sinus Symptoms 12/24/20 11/26/23 Unknown History Physical Exam 2 Vital Signs: Vital Signs: Last Vital Signs Temp 97.8 F 07/22/24 12:33 Pulse 71 07/22/24 12:33 Resp 18 07/22/24 12:33 BP 155/60 H 07/22/24 12:33 Pulse Ox 97 07/22/24 12:33 O2 Del Method Room Air 07/22/24 12:33 BMI result Body Mass Index 16.6 Const: General: no acute distress and alert Nutritional Appearance: c achectic and thin Orientation/consciousness: patient oriented x3 Resp: Effort & Inspection: normal respiratory effort Cardio: Rate: regular rate GI: Other: marked tenderness in right upper and mid abdomen with voluntary guarding Inspection: Yes distended and Yes scar Palpation (GI): Soft to palpation Abdomen image: 1. midline scar Skin: General skin exam: no rashes or lesions noted Neuro: General: patient oriented x3 and moves all extremities Results Results Labs: Short CBC 07/22/24 Range/Units 09:33 WBC 10.0 (4.8-10.8) X10*3/uL Hgb 13.5 (12.0-16.0) g/dl Hct 40.1 (37.0-47.0) % Plt Count 128 L (160-400) X10*3/uL BMP 07/22/24 09:33 Sodium 135 Potassium 4.0 Chloride 104 Carbon Dioxide 22 BUN 17 H Creatinine 0.99 Calcium 10.4 H Liver Function 07/22/24 Range/Units 09:33 Total Bilirubin 0.5 (0.0-1.0) mg/dL Direct Bilirubin 0.2 (0.0-0.5) mg/dL AST 23 (5-31) U/L ALT 8 (0-31) U/L Alkaline Phosphatase 101 (39-117) U/L Albumin 4.1 (3.5-5.0) g/dL Abdomen CT scan report/results: report reviewed and image reviewed Assessment and Plan (1) SBO (small bowel obstruction): Status: Acute Plan 89 year old female with PMH significant for COPD, b/l carotid stenosis, HTN presenting with acute onset of severe abdominal pain with marked abd tenderness and CT scan with dilated bowel loops with infiltration and fluid in the mesentery with collapsed distal loops and near swirl sign in the pelvis concerning for closed loop obstruction. It was therefore recommended to proceed with exploratory laparotomy, lysis of adhesions, possible small bowel resection in the OR today emergently. Technique of the procedure, risks and benefits were discussed with the patient and son including infection, bleeding, possible ostomy, injury to surrounding organs and vasculature. She and son are in agreement with plan and she has been added onto the OR schedule for today. NGT tube for decompression has been ordered, continue IVF. Quality Stroke Does the patient have a stroke diagnosis?: No VTE Prior VTE?: No VTE Risk Level:: Surgical - high VTE Device Contraindication: N/A - Device Ordered VTE Drug Contraindication: N/A - Med Ordered Procedures Date of Service Date of Service: 07/22/24
--- NOTE | 2024-07-22 13:21 | P.CONAN_ITS ---
Documented by User: Angelic Duran MD 07/22/24 13:24 HPI - Anesthesia Eval Consult details Narrative: 89 yo female patient for Exploratory Laparotomy PMFSH Active Problems Active Problems: All Active Problems Malrotation of intestine with midgut volvulus (Acute) SBO (small bowel obstruction) (Acute) UTI (urinary tract infection) (Acute) Underweight due to inadequate caloric intake (Acute) Calcific tendonitis of right shoulder (Acute) Abnormal EKG (Acute) Bilateral carotid artery stenosis (Acute) COPD (chronic obstructive pulmonary disease) (Acute) Stenosis of left carotid artery greater than 50% (Acute) Chronic cough (Acute) Hx of transient ischemic attack (TIA) (Acute) Spongiotic dermatitis (Acute) Lichen sclerosus (Acute) Arthritis of carpometacarpal (CMC) joint of both thumbs (Acute) Tenosynovitis of both wrists (Acute) Smoker unmotivated to quit (Acute) Menopause (Acute) Osteoporosis (Acute) Dyslipidemia (Acute) HTN (hypertension) (Acute) Past Medical History Medical History Abnormal EKG COPD (chronic obstructive pulmonary disease) Stenosis of left carotid artery greater than 50% Chronic cough Hx of transient ischemic attack (TIA) Spongiotic dermatitis Lichen sclerosus Cerumen impaction Tenosynovitis of both wrists Eczema Tachycardia, paroxysmal History of melena Intertrigo Smoker unmotivated to quit Vertigo Menopause Osteoporosis Dyslipidemia HTN (hypertension) Family History Family History Father No problems noted. Mother No problems noted. Sister No problems noted. Son No problems noted. Son No problems noted. Son No problems noted. Son No problems noted. 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 If so, by whom?: No Are you DNR?: No Advance Directives: No Advance Directives Information Provided: Yes (Son per patient (Evaristo).) Advance Directives on File: No Recently lost weight without trying: No How much weight loss: Not applicable Eating poorly because of decreased appetite: No Nutrition screen score: 0 Nutrition Risks: No Nutritional Risk Patient : No : No Poor oral hygiene: Yes (missing all teeth throughout) service: No Current occupational status: retired Current occupation: Right hand dominate Cognitive needs: No Hearing needs: No Vision needs: Yes Meds Allergies Allergy/AdvReac Type Severity Reaction Status Date / Time codeine [Codeine] Allergy Mild NAUSEA AND Verified 07/22/24 09:12 VOMITING azithromycin AdvReac Intermediate N/V/D, Verified 07/22/24 09:12 [From ZITHROMAX Z-EWA] severe GI upset Active Medications: Current Medications Lactated Ringer's (Lr) 1,000 mls @ 100 mls/hr IVCONT .Q10H [facility] Last Admin: 07/22/24 12:33 Dose: 100 mls/hr Cefazolin Sodium/Dextrose (Ancef) 2 gm in 50 mls @ 100 mls/hr IV PREOP ONE Stop: 07/22/24 13:25 Morphine Sulfate (Morphine Sulfate 2 Mg/Ml Cartridge) 2 mg IVPUSH Q4H PRN; Protocol PRN Reason: Pain, Severe (Pain Scale 7-10) Ondansetron HCl (Ondansetron Hcl 4 Mg/2 Ml Vial) 4 mg IVPUSH Q8H PRN PRN Reason: Nausea and Vomiting Sodium Chloride (0.9 % Sodium Chloride Flush 3 Ml Syringe) 3 ml IVFLUSH QSHIFT [facility] Home Medications ?Medication ?Instructions ?Recorded ?Confirmed ?Last Taken ?Type cholecalciferol (vitamin D3) 50 50 mcg PO DAILY 04/20/20 11/26/23 12/23/20 History mcg (2,000 unit) capsule acetaminophen 325 mg tablet 650 mg PO Q6H PRN Sinus Symptoms 12/24/20 11/26/23 Unknown History Exam Height,Weight and Vital Signs: Height 4 ft 10 in Weight 36.1 kg Last Vital Signs Temp 97.8 F 07/22/24 12:33 Pulse 71 07/22/24 12:33 Resp 18 07/22/24 12:33 BP 155/60 H 07/22/24 12:33 Pulse Ox 97 07/22/24 12:33 O2 Del Method Room Air 07/22/24 12:33 Pertinent Lab Results Pertinent Lab Results: Laboratory Tests 07/22/24 07/22/24 07/22/24 09:33 10:00 12:11 WBC 10.0 RBC 4.24 Hgb 13.5 Hct 40.1 MCV 94.6 MCH 31.8 MCHC 33.7 RDW 12.4 Plt Count 128 L MPV 11.0 Immature Gran % (Auto) 0.6 H Neut % (Auto) 83.8 H Lymph % (Auto) 12.4 L [place] % (Auto) 2.8 Eos % (Auto) 0.1 Baso % (Auto) 0.3 Lymph # (Auto) 1.2 [place] # (Auto) 0.3 Eos # (Auto) 0.0 Baso # (Auto) 0.0 Abs Immat Gran (auto) 0.06 H Absolute Neuts (auto) 8.4 H Absolute Nucleated RBC 0.000 Nucleated RBC % (auto) 0.0 PT INR Sodium 135 Potassium 4.0 Chloride 104 Carbon Dioxide 22 Anion Gap 13 BUN 17 H Creatinine 0.99 Estim Creat Clear Calc 22.4 Estimated GFR 53 Random Glucose 102 Lactic Acid 1.4 Calcium 10.4 H Total Bilirubin 0.5 Direct Bilirubin 0.2 AST 23 ALT 8 Alkaline Phosphatase 101 Total Protein 7.0 Albumin 4.1 Lipase 39 Blood Type B Positive Antibody Screen NEGATIVE 07/22/24 12:12 WBC RBC Hgb Hct MCV MCH MCHC RDW Plt Count MPV Immature Gran % (Auto) Neut % (Auto) Lymph % (Auto) [place] % (Auto) Eos % (Auto) Baso % (Auto) Lymph # (Auto) [place] # (Auto) Eos # (Auto) Baso # (Auto) Abs Immat Gran (auto) Absolute Neuts (auto) Absolute Nucleated RBC Nucleated RBC % (auto) PT 10.1 L INR 0.9 Sodium Potassium Chloride Carbon Dioxide Anion Gap BUN Creatinine Estim Creat Clear Calc Estimated GFR Random Glucose Lactic Acid Calcium Total Bilirubin Direct Bilirubin AST ALT Alkaline Phosphatase Total Protein Albumin Lipase Blood Type Antibody Screen Assessment and Plan Final Anesthetic Review Family History of Problems with Anesthesia: No History of Problems with Anesthesia: No Documented by User: Natalie Santos MD 07/22/24 14:03 [facility] Past Medical History Medical History Abnormal EKG COPD (chronic obstructive pulmonary disease) Stenosis of left carotid artery greater than 50% Chronic cough Hx of transient ischemic attack (TIA) Spongiotic dermatitis Lichen sclerosus Cerumen impaction Tenosynovitis of both wrists Eczema Tachycardia, paroxysmal History of melena Intertrigo Smoker unmotivated to quit Vertigo Menopause Osteoporosis Dyslipidemia HTN (hypertension) Family History Family History Father No problems noted. Mother No problems noted. Sister No problems noted. Son No problems noted. Son No problems noted. Son No problems noted. Son No problems noted. Other Substance use disorder Surgical History Surgical History H/O: hysterectomy History of colonoscopy History of cataract surgery History of appendectomy Social History Social History Housing: Apartment Are you a primary care process manager to a significant other at home: Yes Do you presently have visiting nurse or other home services: No Alcohol intake: never Patient Tobacco Use Status: Current everyday Tobacco user Tobacco use type: Cigarette Cigarette Packs Per Day: 0 Cigarettes Per Day: 5 Years Smoked: 70 Smoked in Last 30 Days: Yes e-Cigarette/Vaping Use: Never Used Use of substances other than those prescribed or required for medical reasons: No Have you been hit, kicked, punched, or otherwise hurt by someone within the past year? If so, by whom?: No Are you DNR?: No Advance Directives: No Advance Directives Information Provided: Yes (Son per patient (Evaristo).) Advance Directives on File: No Recently lost weight without trying: No How much weight loss: Not applicable Eating poorly because of decreased appetite: No Nutrition screen score: 0 Nutrition Risks: No Nutritional Risk Patient : No : No Poor oral hygiene: Yes (missing all teeth throughout) service: No Current occupational status: retired Current occupation: Right hand dominate Cognitive needs: No Hearing needs: No Vision needs: Yes Meds Allergies Allergy/AdvReac Type Severity Reaction Status Date / Time codeine [Codeine] Allergy Mild NAUSEA AND Verified 07/22/24 09:12 VOMITING azithromycin AdvReac Intermediate N/V/D, Verified 07/22/24 09:12 [From ZITHROMAX Z-EWA] severe GI upset Home Medications ?Medication ?Instructions ?Recorded ?Confirmed ?Last Taken ?Type cholecalciferol (vitamin D3) 50 50 mcg PO DAILY 04/20/20 11/26/23 12/23/20 History mcg (2,000 unit) capsule acetaminophen 325 mg tablet 650 mg PO Q6H PRN Sinus Symptoms 12/24/20 11/26/23 Unknown History Exam Airway Mallampati Class: I TM Dist: >3cm Neck ROM: Full Denture: Upper Partial: Upper Loose/Missing/Broken Teeth: Yes, Upper and Lower Heart: RRR Lungs: CTA Assessment and Plan Assessment Anesthesia Assessment: Anesthesia Plan Discussed and Chart Reviewed Final Anesthetic Review NPO: Yes ASA Class: III and Emergency Final Preanesthetic Review: Meds/Allgs Chart Reviewed, Consent Obtained/Reviewed and Anes Risks/Benef Reviewed Patient Risk: Intermediate Procedure Risk: Intermediate Anesthetic Plan Anesthetic Plan: GA Disposition: Standard PACU
--- NOTE | 2024-07-22 14:17 | PC.NURSE ---
NGT PLACED PER MD ORDER AND MD ANTI. SITTING UP 90 DEGREES ATTEMPTED RIGHT NARES WITH NO SUCCESS. LEFT NARES INSERTED SMOOTHLY. PATIENT DANYELL WELL. CHECKED FOR PLACEMENT WITH 30CC OF AIR. SLIGHT NARES BLEED TO LEFT NARES. REMAINED ALERT AND AWAKE. DANYELL WELL. NO COMPLAINTS. APPLIED TO LOW SUCTION WITH NO CONTENTS COMING OUT. CLAMPED PER ANESTHESIA AND GOING TO SURGERY AT THIS TIME. 14G TUBING USED.
--- NOTE | 2024-07-22 15:21 | P.OP_ITS ---
Operative Note Operative Note Date of Service: 07/22/24 Narrative: Preoperative diagnosis: [] Small-bowel volvulus Postop diagnosis: [] The same Procedure [] exploratory laparotomy, takedown adhesion/adhesionolysis Surgeon: [] [employer] Supervisor: [] Queta Type of Anesthesia: [] Gen Indication for surgery: [] Patient is an 89-year-old female status post multiple prior abdominal surgeries, who presents here with the acute onset of severe mid abdominal pain. Exam was most noteworthy for localized periumbilical rebound tenderness. CT scan demonstrating findings consistent with mid small- bowel volvulus. Intraoperative findings demonstrated an adhesive band in the right lower quadrant, around which the mid small bowel was twisted. Band was taken down and the affected small bowel was edematous and congested but viable. Bowel was run in its entirety with no other pathology demonstrated. Findings: [] Patient brought to the operating room, placed on operative table supine position, after an adequate level of general anesthesia was induced, the patient's abdomen was prepped and draped in usual sterile fashion. Using a supra- Umbilical incision, this carried down through skin, subcutaneous tissue, and linea alba was identified and opened and extended along the length of the incision, along with posterior fascia and peritoneum. Soft small-bowel adhesions were taken down in the abdominal cavity entered.. Findings were as noted above. Single adhesive band around which the mid small bowel was twisted was taken down in the right lower quad and findings were as noted above. Small bowel was run and no other pathology demonstrated. Affected segment of tommie wel although congested and edematous was viable with active peristalsis and pulses. Wound was irrigated, secured hemostasis, and closed in the following manner; the fascia was closed using running 1. Maxon suture. Skin was closed using interrupted inverted dermal 3-0 Vicryl sutures followed by Steri-Strips and sterile dressings. Wound was infiltrated 0.5% Marcaine at completion. Sponge, needle, and instrument counts reported correct. Patient tolerated the procedure well and emerged from anesthesia in stable condition. EBL minimal
[2024-07-22] MEDS: fentaNYL citrate/PF 100 MCG/2 ML VIAL 25 MCG IVPUSH ×2 (17:00→17:05)
[2024-07-22] MEDS: Acetaminophen 1,000 MG/100 ML PIGGYBACK 400 MG IV (20:09)
[2024-07-22] MEDS: Lactated Ringers 1,000 ML 80 ML IVCONT (20:10)
--- NOTE | 2024-07-22 20:39 | PHA.MEDREC ---
Addendum entered by Ines Cordova, [facility] 07/22/24 20:40: Linda spoke to nurse asking to bring Anoro in, said daughter could bring it in. Left unconfirmed until brought in to verify patient is using it. Original Note: Pharmacy Consult ? Medication Reconciliation Pharmacy has completed the medication reconciliation, spoke to patient at bedside who confirmed all medications, said she only has one inhaler - said albuterol.
[2024-07-23 04:00] VITALS: BP 142/65; PULSE 71; RESP 15; TEMP 36.4; O2SAT 96
[2024-07-23] MEDS: Acetaminophen 1,000 MG/100 ML PIGGYBACK 400 MG IV ×3 (05:44→18:33)
[2024-07-23 05:56] LABS: MANUAL DIFF FLAG NO
[2024-07-23 06:08] LABS: Basophils Percent Auto 0.3 % (0-2); Eosinophils Percent Auto 0.4 % (0-4); Hematocrit 38.1 % (37.0-47.0); Hemoglobin 12.6 g/dl (12.0-16.0); Imm Gran Abs Auto 0.02 X10*3/uL (0.00-0.03); Imm Gran Pct Auto 0.2 % (0.0-0.4); Lymphocytes Absolute Auto 1.3 X10*3/uL (1.2-4.9); Lymphocytes Percent Auto 13.8 % (20-40); Mean Corpuscular HGB Conc 33.1 g/dl (31.0-35.0); Mean Corpuscular Hemoglobin 31.7 pg (27.0-33.0); Mean Corpuscular Volume 95.7 fL (80.0-98.0); Mean Platelet Volume 11.1 fL (9.4-12.3); Monocytes Absolute Auto 0.4 X10*3/uL (0.1-1.2); Monocytes Percent Auto 4.5 % (2-11); Neutrophils Absolute Auto 7.3 x10*3/uL (2.0-8.3); Neutrophils Percent Auto 80.8 % (45-73); Platelet Count 106 X10*3/uL (160-400); Red Blood Count 3.98 X10*6/uL (4.20-5.50); Red Cell Distribution Width 12.5 % (11.0-16.0); White Blood Count 9.1 X10*3/uL (4.8-10.8)
[2024-07-23 06:21] LABS: Anion Gap 12 (12-20); Blood Urea Nitrogen 13 mg/dL (9-16); Calcium 9.4 mg/dL (8.4-10.2); Carbon Dioxide 24 mmol/L (22-29); Chloride 108 mmol/L (96-108); Creatinine Clr Calc Pharmacy 27.9; Estimated Glomerular Filt Rate 59; Glucose Fasting 87 mg/dL (60-99); Sodium 139 mmol/L (135-145)
[2024-07-23 07:44] VITALS: BP 140/65; PULSE 71; RESP 16; TEMP 36.9; O2SAT 94
[2024-07-23] MEDS: Nicotine 14 MG PATCH.TD24 TRANSDERMA (08:24)
[2024-07-23] MEDS: Heparin Sodium,Porcine 5,000 UNIT/ML VIAL 5000 UNIT SUBCUT ×2 (08:24→19:45)
--- NOTE | 2024-07-23 10:41 | MHC.CM.PN ---
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
--- NOTE | 2024-07-23 13:57 | PC.NURSE ---
ng tube out at this time, pt tolerated well
--- NOTE | 2024-07-23 14:17 | HO.PM.IMCN ---
History of Present Illness Data of Consult Service Date: 07/23/24 Primary Care Provider: Crissy Sullivan MD HPI 89-year-old woman presenting with left lower quadrant sudden abdominal pain with nausea and vomiting. No fever, chills. She had a stat surgical consult and abdominal CT that found midgut malrotation with small-bowel obstruction with suspicion for closed loop obstruction in the pelvis. She was taken to the OR for exploratory laparotomy. Review of Systems Review of Systems: Denies any recent fever chills or decrease in appetite respiratory denies any shortness of breath or cough cardiovascular denies chest pain gastrointestinal abdominal pain nausea and vomiting genitourinary denies any dysuria frequency or hematuria musculoskeletal denies any joint pain or swelling neuropsych denies any weakness or seizures all other systems reviewed are negative [facility] Medical History Abnormal EKG COPD (chronic obstructive pulmonary disease) Stenosis of left carotid artery 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 Mother No problems noted. Sister No problems noted. Son No problems noted. Son No problems noted. Son No problems noted. Son No problems noted. Other Substance use disorder Surgical History H/O: hysterectomy History of colonoscopy History of cataract surgery History of appendectomy Social History Household Members: Significant Other Housing: House Are you a primary physician locums urgent care to a significant other at home: Yes Do you presently have visiting nurse or other home services: No Alcohol intake: never Patient Tobacco Use Status: Current everyday Tobacco user Tobacco use type: Cigarette Cigarette Packs Per Day: 0 Cigarettes Per Day: 5 Years Smoked: 70 Smoked in Last 30 Days: Yes e-Cigarette/Vaping Use: Never Used Patient Interested in Nicotine Replacement: No Patient Given Instructions on How to Stop Smoking: No Second Hand Smoke Exposure: No Use of substances other than those prescribed or required for medical reasons: No Currently Displaying Signs/Symptoms of Drug Intoxication Withdrawal: No Have you been hit, kicked, punched, or otherwise hurt by someone within the past year? If so, by whom?: No Do you feel safe in your current relationship?: No Are you DNR?: No Advance Directives: No Advance Directives Information Provided: Yes (Son per patient (Evaristo).) Advance Directives on File: No Do you have a plan to hurt others: No Plan Recently lost weight without trying: No How much weight loss: Not applicable Eating poorly because of decreased appetite: No Nutrition screen score: 0 Nutrition Risks: No Nutritional Risk Patient : No : No Poor oral hygiene: No service: No Current occupational status: retired Current occupation: Right hand dominate Cognitive needs: No Hearing needs: No Vision needs: Yes Meds Allergies Allergy/AdvReac Type Severity Reaction Status Date / Time codeine [Codeine] Allergy Mild NAUSEA AND Verified 07/22/24 14:05 VOMITING azithromycin AdvReac Intermediate N/V/D, Verified 07/22/24 14:05 [From ZITHROMAX Z-EWA] severe GI upset Active Medications: Current Medications Albuterol Sulfate (Albuterol Sulfate 90 Mcg 8 Gm Inhaler) 2 puff INHALE Q6H PRN PRN Reason: shortness of breath or wheezing Benzocaine (Throat Lozenge, Medicated Lozenge) 1 lozenge MUCOUS MEM Q2H PRN PRN Reason: Sore Throat Heparin Sodium (Porcine) (Heparin Sodium,Porcine 5,000 Unit/Ml Vial) 5,000 unit SUBCUT Q12H [facility] Last Admin: 07/23/24 08:24 Dose: 5,000 unit Lactated Ringer's (Lr) 1,000 mls @ 80 mls/hr IVCONT .[id number] [facility] Last Infusion: 07/23/24 08:45 Dose: Infused Acetaminophen (Ofirmev) 1,000 mg in 100 mls @ 400 mls/hr IV Q6H [facility] Last Infusion: 07/23/24 13:16 Dose: Infused Morphine Sulfate (Morphine Sulfate 2 Mg/Ml Cartridge) 2 mg IVPUSH Q4H PRN; Protocol PRN Reason: Pain, Severe (Pain Scale 7-10) Last Admin: 07/22/24 20:10 Dose: 2 mg Nicotine (Nicotine 14 Mg Patch.Td24) 14 mg TRANSDERMA DAILY [facility] Last Admin: 07/23/24 08:24 Dose: 14 mg Pt Own (Umeclidinium -Vilanterol [Anoro Ellipta] 62.5-25 Mcg /Actuation Bl 1 inhalation INHALE RDAILY [facility] Last Admin: 07/23/24 14:16 Dose: Not Given Ondansetron HCl (Ondansetron Hcl 4 Mg/2 Ml Vial) 4 mg IVPUSH Q8H PRN PRN Reason: Nausea and Vomiting Sodium Chloride (0.9 % Sodium Chloride Flush 3 Ml Syringe) 3 ml IVFLUSH QSHIFT [facility] Last Admin: 07/23/24 13:17 Dose: Not Given Home Medications ?Medication ?Instructions ?Recorded ?Confirmed ?Last Taken ?Type cholecalciferol (vitamin D3) 50 50 mcg PO DAILY 04/20/20 07/22/24 07/21/24 History mcg (2,000 unit) capsule acetaminophen 325 mg tablet 650 mg PO Q6H PRN Sinus Symptoms 12/24/20 07/22/24 07/22/24 History loratadine 10 mg tablet 10 mg PO DAILY PRN allergies 07/22/24 07/22/24 Unknown History umeclidinium 62.5 mcg-vilanterol 1 ea inhalation DAILY 07/22/24 Unknown History 25 mcg/actuation powdr for inhalation (Anoro Ellipta) Physical Exam Vital Signs and Narrative: Vital Signs: Last Vital Signs Temp 98.4 F 07/23/24 07:44 Pulse 71 07/23/24 07:44 Resp 16 07/23/24 07:44 BP 140/65 H 07/23/24 07:44 Pulse Ox 94 07/23/24 07:44 O2 Del Method Room Air 07/23/24 07:44 O2 Flow Rate 6 07/22/24 15:40 BMI result Body Mass Index 19.0 Appearing in no acute distress head is normocephalic atraumatic eyes pupils are PERRLA sclera is anicteric mouth throat mucous membranes are intact and moist neck is supple no lymphadenopathy, no JVD noted lung sounds are clear to auscultation heart regular rate rhythm, clear S1, S2 positive bowel sounds, abdomen is soft, nontender neuro patient is alert x3, no focal deficits Results Labs 07/23/24 05:43 07/23/24 05:43 Labs: Laboratory Results - last 24 hr 07/23/24 05:43 MCV 95.7 MCH 31.7 MCHC 33.1 RDW 12.5 Plt Count 106 L MPV 11.1 Immature Gran % (Auto) 0.2 Neut % (Auto) 80.8 H Lymph % (Auto) 13.8 L [place] % (Auto) 4.5 Eos % (Auto) 0.4 Baso % (Auto) 0.3 Lymph # (Auto) 1.3 [place] # (Auto) 0.4 Eos # (Auto) 0.0 Baso # (Auto) 0.0 Abs Immat Gran (auto) 0.02 Absolute Neuts (auto) 7.3 Absolute Nucleated RBC 0.000 Nucleated RBC % (auto) 0.0 Anion Gap 12 Estim Creat Clear Calc 27.9 Estimated GFR 59 Fasting Glucose 87 Calcium 9.4 D Assessment and Plan (1) SBO (small bowel obstruction): Status: Acute (2) HTN (hypertension): Qualifiers: Hypertension type: primary hypertension Qualified Code(s): I10 - Essential (primary) hypertension Status: Acute Plan 89-year-old woman admitted with small bowel volvulus Small bowel volvulus Management as per surgical team Status post exploratory laparotomy with takedown of adhesions/adhesional lysis Pain management Hypertension Stable blood pressure Continue lisinopril Hyperlipidemia Hold statin Asthma Albuterol as needed Smoker Nicotine replacement therapy DVT prophylaxis with heparin Full code
--- NOTE | 2024-07-23 14:20 | HO.POSTANES ---
Post Anesthesia Evaluation Post Anesthesia Evaluation Date of Service: 07/23/24 Vital Signs: Vital Signs Temp Pulse Resp BP Pulse Ox O2 Del Method 07/23/24 07:44 98.4 F 71 16 140/65 H 94 Room Air 07/23/24 04:00 97.5 F 71 15 142/65 H 96 Room Air Anesthesia: General Endotracheal-GETA Mental Status: Awake Pain Control: Satisfactory Nausea/Vomiting: None Hydration: Adequate Anesthesia-Related Issues: No Anes. Related Issues
--- NOTE | 2024-07-23 15:05 | P.PNGS_ITS ---
Subjective Subjective Date of Service: 07/23/24 Interval history: Patient was evaluated this morning with many of her family members present. She is doing quite well considering her age and the management through with the procedure. Minimal output from NG tube. No flatus yet. Physical Exam 2 Vital Signs: Vital Signs: Last Vital Signs Temp 98.4 F 07/23/24 07:44 Pulse 71 07/23/24 07:44 Resp 16 07/23/24 07:44 BP 140/65 H 07/23/24 07:44 Pulse Ox 94 07/23/24 07:44 O2 Del Method Room Air 07/23/24 07:44 O2 Flow Rate 6 07/22/24 15:40 BMI result Body Mass Index 19.0 GI: Other: Abdomen is soft. Dressing clean dry and intact. Objective Data Active Medications Albuterol Sulfate (Albuterol Sulfate 90 Mcg 8 Gm Inhaler) 2 puff INHALE Q6H PRN PRN Reason: shortness of breath or wheezing Benzocaine (Throat Lozenge, Medicated Lozenge) 1 lozenge MUCOUS MEM Q2H PRN PRN Reason: Sore Throat Heparin Sodium (Porcine) (Heparin Sodium,Porcine 5,000 Unit/Ml Vial) 5,000 unit SUBCUT Q12H [facility] Last Admin: 07/23/24 08:24 Dose: 5,000 unit Documented By: MIS Lactated Ringer's (Lr) 1,000 mls @ 80 mls/hr IVCONT .[id number] [facility] Last Infusion: 07/23/24 08:45 Dose: Infused Documented By: MIS Acetaminophen (Ofirmev) 1,000 mg in 100 mls @ 400 mls/hr IV Q6H [facility] Last Infusion: 07/23/24 13:16 Dose: Infused Documented By: MIS Lisinopril (Lisinopril 10 Mg Tablet) 10 mg PO DAILY [facility]; Protocol Morphine Sulfate (Morphine Sulfate 2 Mg/Ml Cartridge) 2 mg IVPUSH Q4H PRN; Protocol PRN Reason: Pain, Severe (Pain Scale 7-10) Last Admin: 07/22/24 20:10 Dose: 2 mg Documented By: LAKHWINDERUSIA Nicotine (Nicotine 14 Mg Patch.Td24) 14 mg TRANSDERMA DAILY [facility] Last Admin: 07/23/24 08:24 Dose: 14 mg Documented By: MIS Pt Own (Umeclidinium -Vilanterol [Anoro Ellipta] 62.5-25 Mcg /Actuation Bl 1 inhalation INHALE RDAILY [facility] Last Admin: 07/23/24 14:16 Dose: Not Given Documented By: MIS Non-Admin Reason: Patient Refused Ondansetron HCl (Ondansetron Hcl 4 Mg/2 Ml Vial) 4 mg IVPUSH Q8H PRN PRN Reason: Nausea and Vomiting Sodium Chloride (0.9 % Sodium Chloride Flush 3 Ml Syringe) 3 ml IVFLUSH QSHIFT [facility] Last Admin: 07/23/24 13:17 Dose: Not Given Documented By: MIS Non-Admin Reason: IV Running Labs 07/23/24 05:43 07/23/24 05:43 Labs: Laboratory Results - last 24 hr 07/23/24 05:43 MCV 95.7 MCH 31.7 MCHC 33.1 RDW 12.5 Plt Count 106 L MPV 11.1 Immature Gran % (Auto) 0.2 Neut % (Auto) 80.8 H Lymph % (Auto) 13.8 L [place] % (Auto) 4.5 Eos % (Auto) 0.4 Baso % (Auto) 0.3 Lymph # (Auto) 1.3 [place] # (Auto) 0.4 Eos # (Auto) 0.0 Baso # (Auto) 0.0 Abs Immat Gran (auto) 0.02 Absolute Neuts (auto) 7.3 Absolute Nucleated RBC 0.000 Nucleated RBC % (auto) 0.0 Anion Gap 12 Estim Creat Clear Calc 27.9 Estimated GFR 59 Fasting Glucose 87 Calcium 9.4 D Procedures Date of Service Date of Service: 07/23/24 Progress Note: A&P Assessment and plan (1) Status post exploratory laparotomy: Status: Acute Plan Plan today is to discharge NG tube, out of bed, encourage incentive spirometry, sips of p.o., follow I's and O's. To probably DC Stock tomorrow. Time Spent With Patient Time: Total time managing care of this patient today ____ minutes. Quality Stroke Does the patient have a stroke diagnosis?: No VTE Prior VTE?: No VTE Risk Level:: Surgical - high VTE Device Contraindication: N/A - Device Ordered VTE Drug Contraindication: N/A - Med Ordered
[2024-07-23 15:36] VITALS: BP 109/59; PULSE 88; RESP 16; TEMP 36.6; O2SAT 95
--- NOTE | 2024-07-23 16:25 | PC.NURSE ---
pt req nicotine patch removed.
[2024-07-23 20:00] VITALS: BP 157/71; PULSE 82; RESP 16; TEMP 36.5; O2SAT 94
[2024-07-23] MEDS: ondansetron HCL 4 MG/2 ML VIAL IVPUSH (22:03)
[2024-07-23] MEDS: Morphine Sulfate 2 MG/ML CARTRIDGE IVPUSH (22:07)
[2024-07-23] MEDS: 0.9 % Sodium Chloride Flush 3 ML SYRINGE IVFLUSH (22:12)
[2024-07-24] VITALS: BP 127/60; PULSE 82; RESP 16; TEMP 36; O2SAT 95
[2024-07-24 02:01] VITALS: BP 151/67; PULSE 79; RESP 16; TEMP 36.1; O2SAT 97
[2024-07-24] MEDS: Lactated Ringers 1,000 ML 80 ML IVCONT (03:30)
[2024-07-24] MEDS: Acetaminophen 1,000 MG/100 ML PIGGYBACK 400 MG IV ×3 (06:27→19:38)
[2024-07-24 08:00] VITALS: BP 137/63; PULSE 73; RESP 17; TEMP 36.5; O2SAT 95
[2024-07-24] MEDS: lisinopriL 10 MG TABLET PO (08:45)
[2024-07-24] MEDS: Heparin Sodium,Porcine 5,000 UNIT/ML VIAL 5000 UNIT SUBCUT ×2 (08:45→19:39)
[2024-07-24] MEDS: PT OWN (Umeclidinium-Vilanterol [Anoro Ellipta] 62.5-25 mcg/actuation bl 1 EACH INHALE (12:50)
--- NOTE | 2024-07-24 13:58 | P.PNGS_ITS ---
Subjective Subjective Date of Service: 07/24/24 Interval history: Patient was doing very well. She is hungry. She has minimal incisional discomfort. No gas or BM yet. Physical Exam 2 Vital Signs: Vital Signs: Last Vital Signs Temp 97.7 F 07/24/24 08:00 Pulse 73 07/24/24 08:00 Resp 17 07/24/24 08:00 BP 137/63 07/24/24 08:00 Pulse Ox 95 07/24/24 08:00 O2 Del Method Room Air 07/24/24 08:00 O2 Flow Rate 6 07/22/24 15:40 BMI result Body Mass Index 19.0 GI: Other: Abdomen is soft. Incision clean dry and intact. Objective Data Active Medications Albuterol Sulfate (Albuterol Sulfate 90 Mcg 8 Gm Inhaler) 2 puff INHALE Q6H PRN PRN Reason: shortness of breath or wheezing Benzocaine (Throat Lozenge, Medicated Lozenge) 1 lozenge MUCOUS MEM Q2H PRN PRN Reason: Sore Throat Heparin Sodium (Porcine) (Heparin Sodium,Porcine 5,000 Unit/Ml Vial) 5,000 unit SUBCUT Q12H [facility] Last Admin: 07/24/24 08:45 Dose: 5,000 unit Documented By: BRENNA Acetaminophen (Ofirmev) 1,000 mg in 100 mls @ 400 mls/hr IV Q6H [facility] Last Infusion: 07/24/24 13:49 Dose: Infused Documented By: BRENNA Lisinopril (Lisinopril 10 Mg Tablet) 10 mg PO DAILY [facility]; Protocol Last Admin: 07/24/24 08:45 Dose: 10 mg Documented By: BRENNA Morphine Sulfate (Morphine Sulfate 2 Mg/Ml Cartridge) 2 mg IVPUSH Q4H PRN; Protocol PRN Reason: Pain, Severe (Pain Scale 7-10) Last Admin: 07/23/24 22:07 Dose: 2 mg Documented By: ROB Nicotine (Nicotine 14 Mg Patch.Td24) 14 mg TRANSDERMA DAILY [facility] Last Admin: 07/24/24 08:52 Dose: Not Given Documented By: BRENNA Non-Admin Reason: Patient Refused Pt Own (Umeclidinium -Vilanterol [Anoro Ellipta] 62.5-25 Mcg /Actuation Bl 1 inhalation INHALE RDAILY [facility] Last Admin: 07/24/24 12:50 Dose: 1 inhalation Documented By: BRENNA Ondansetron HCl (Ondansetron Hcl 4 Mg/2 Ml Vial) 4 mg IVPUSH Q8H PRN PRN Reason: Nausea and Vomiting Last Admin: 07/23/24 22:03 Dose: 4 mg Documented By: ROB Sodium Chloride (0.9 % Sodium Chloride Flush 3 Ml Syringe) [facility] Last Admin: 07/24/24 08:49 Dose: Not Given Documented By: BRENNA Non-Admin Reason: IV Running Labs 07/23/24 05:43 07/23/24 05:43 Procedures Date of Service Date of Service: 07/24/24 Progress Note: A&P Assessment and plan (1) Status post exploratory laparotomy: Status: Acute (2) SBO (small bowel obstruction): Status: Acute Plan Current plan is to DC Stock, encourage out of bed/ambulate, sips of p.o. liquids, incentive spirometry, Hep-Lock IV Time Spent With Patient Time: Total time managing care of this patient today ____ minutes. Quality Stroke Does the patient have a stroke diagnosis?: No VTE Prior VTE?: No VTE Risk Level:: Surgical - high VTE Device Contraindication: N/A - Device Ordered VTE Drug Contraindication: N/A - Med Ordered
[2024-07-24 15:35] VITALS: BP 144/67; PULSE 75; RESP 16; TEMP 36.1; O2SAT 96
--- NOTE | 2024-07-24 17:05 | PC.NURSE ---
Stock cath d/c at 5p on 07/24 by nurse with orders from surgeon to remove. Patient tolerated well.
[2024-07-24] MEDS: 0.9 % Sodium Chloride Flush 3 ML SYRINGE IVFLUSH ×2 (17:53→19:39)
[2024-07-24 19:37] VITALS: BP 168/72; PULSE 77; RESP 16; TEMP 36.6; O2SAT 98
[2024-07-24 23:02] VITALS: BP 178/74; PULSE 82; RESP 16; TEMP 36; O2SAT 94
[2024-07-25] MEDS: Morphine Sulfate 2 MG/ML CARTRIDGE IVPUSH (00:07)
[2024-07-25 03:44] VITALS: BP 142/63; PULSE 69; RESP 18; TEMP 36.2; O2SAT 96
--- NOTE | 2024-07-25 03:59 | PC.NURSE ---
Pt alert and oriented, denies any pain. Revisited pt at 12mn, pt c/o not able to go to sleep, c/o dull left sided pain left flank and left shoulder, no pain on midline abd surgical site, some SOB form the pulling pain, BP 190/100 manually,H=84, Dr. Dickson was notified, Morphine prn given, slept after. BP rechecked and went down to 140s systolic.
[2024-07-25 07:37] VITALS: BP 165/70; PULSE 73; RESP 12; TEMP 36.2; O2SAT 95
[2024-07-25] MEDS: Heparin Sodium,Porcine 5,000 UNIT/ML VIAL 5000 UNIT SUBCUT ×2 (07:45→19:17)
[2024-07-25] MEDS: Acetaminophen 1,000 MG/100 ML PIGGYBACK 400 MG IV ×3 (07:45→18:51)
[2024-07-25] MEDS: lisinopriL 10 MG TABLET PO (07:45)
[2024-07-25] MEDS: 0.9 % Sodium Chloride Flush 3 ML SYRINGE IVFLUSH (07:46)
--- NOTE | 2024-07-25 09:23 | P.PNGS_ITS ---
Subjective Subjective Date of Service: 07/25/24 Interval history: says she feels well passing flatus tolerating full liquids Physical Exam 2 Vital Signs: Vital Signs: Last Vital Signs Temp 97.1 F 07/25/24 07:37 Pulse 73 07/25/24 07:37 Resp 12 07/25/24 07:37 BP 165/70 H 07/25/24 07:37 Pulse Ox 95 07/25/24 07:37 O2 Del Method Room Air 07/25/24 07:37 O2 Flow Rate 6 07/22/24 15:40 BMI result Body Mass Index 19.0 Const: General: comfortable and no acute distress Resp: Effort & Inspection: normal respiratory effort Cardio: Rate: regular rate GI: Other: incision clean and dry Palpation (GI): Soft to palpation, not firm, nontender and no guarding Objective Data Active Medications Albuterol Sulfate (Albuterol Sulfate 90 Mcg 8 Gm Inhaler) 2 puff INHALE Q6H PRN PRN Reason: shortness of breath or wheezing Benzocaine (Throat Lozenge, Medicated Lozenge) 1 lozenge MUCOUS MEM Q2H PRN PRN Reason: Sore Throat Heparin Sodium (Porcine) (Heparin Sodium,Porcine 5,000 Unit/Ml Vial) 5,000 unit SUBCUT Q12H [facility] Last Admin: 07/25/24 07:45 Dose: 5,000 unit Documented By: LINDSAY Acetaminophen (irmev) 1,000 mg in 100 mls @ 400 mls/hr IV Q6H [facility] Last Infusion: 07/25/24 08:33 Dose: Infused Documented By: LINDSAY Lisinopril (Lisinopril 10 Mg Tablet) 10 mg PO DAILY [facility]; Protocol Last Admin: 07/25/24 07:45 Dose: 10 mg Documented By: LINDSAY Morphine Sulfate (Morphine Sulfate 2 Mg/Ml Cartridge) 2 mg IVPUSH Q4H PRN; Protocol PRN Reason: Pain, Severe (Pain Scale 7-10) Last Admin: 07/25/24 00:07 Dose: 2 mg Documented By: VIRGINIA Nicotine (Nicotine 14 Mg Patch.Td24) 14 mg TRANSDERMA DAILY [facility] Last Admin: 07/25/24 07:53 Dose: Not Given Documented By: LINDSAY Non-Admin Reason: Patient Refused Pt Own (Umeclidinium -Vilanterol [Anoro Ellipta] 62.5-25 Mcg /Actuation Bl 1 inhalation INHALE RDAILY [facility] Last Admin: 07/24/24 12:50 Dose: 1 inhalation Documented By: BRENNA Ondansetron HCl (Ondansetron Hcl 4 Mg/2 Ml Vial) 4 mg IVPUSH Q8H PRN PRN Reason: Nausea and Vomiting Last Admin: 07/23/24 22:03 Dose: 4 mg Documented By: ROB Sodium Chloride (0.9 % Sodium Chloride Flush 3 Ml Syringe) [facility] Last Admin: 07/25/24 07:46 Dose: 3 ml Documented By: JERFAUSTINAA Labs 07/23/24 05:43 07/23/24 05:43 Procedures Date of Service Date of Service: 07/25/24 Progress Note: A&P Assessment and plan (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 Quality Stroke Does the patient have a stroke diagnosis?: No VTE Prior VTE?: No VTE Risk Level:: Surgical - high VTE Device Contraindication: N/A - Device Ordered VTE Drug Contraindication: N/A - Med Ordered
[2024-07-25] MEDS: PT OWN (Umeclidinium-Vilanterol [Anoro Ellipta] 62.5-25 mcg/actuation bl 1 EACH INHALE (12:17)
[2024-07-25 16:07] VITALS: BP 157/70; PULSE 70; RESP 18; TEMP 36.2; O2SAT 98
[2024-07-25 19:34] VITALS: BP 138/63; PULSE 70; RESP 18; TEMP 36.2; O2SAT 94
[2024-07-25 23:26] VITALS: BP 126/55; PULSE 69; RESP 18; TEMP 36.2; O2SAT 95
[2024-07-26] MEDS: 0.9 % Sodium Chloride Flush 3 ML SYRINGE IVFLUSH ×3 (00:15→14:59)
[2024-07-26] MEDS: Acetaminophen 1,000 MG/100 ML PIGGYBACK 400 MG IV ×4 (00:18→18:45)
[2024-07-26 03:25] VITALS: BP 124/62; PULSE 72; RESP 18; TEMP 36.1; O2SAT 94
[2024-07-26] MEDS: ondansetron HCL 4 MG/2 ML VIAL IVPUSH ×2 (05:40→12:45)
[2024-07-26] MEDS: lisinopriL 10 MG TABLET PO (07:53)
[2024-07-26] MEDS: Heparin Sodium,Porcine 5,000 UNIT/ML VIAL 5000 UNIT SUBCUT ×2 (07:53→20:06)
[2024-07-26 08:54] VITALS: BP 157/70; PULSE 71; RESP 12; TEMP 37; O2SAT 96
--- NOTE | 2024-07-26 09:41 | PM.PNGS ---
Subjective Subjective Date of Service: 07/26/24 Interval history: Had a difficult night due to dry heaving. OOB and ambulating to bathroom. had some dizziness in bed last night. Tolerating diet but not much intake. Passing some flatus. Physical Exam Vital Signs: Vital Signs: Last Vital Signs Temp 98.6 F 07/26/24 08:54 Pulse 71 07/26/24 08:54 Resp 12 07/26/24 08:54 BP 157/70 H 07/26/24 08:54 Pulse Ox 96 07/26/24 08:54 O2 Del Method Room Air 07/26/24 08:54 O2 Flow Rate 6 07/22/24 15:40 BMI result Body Mass Index 19.0 Const: General: comfortable, no acute distress and alert Orientation/consciousness: patient oriented x3 Resp: Effort & Inspection: normal respiratory effort GI: Other: ecchymosis of incision site but overall clean mildly distended appropriate incisional tenderness Skin: General skin exam: no rashes or lesions noted Neuro: General: patient oriented x3 and moves all extremities Objective Data Active Medications Albuterol Sulfate (Albuterol Sulfate 90 Mcg 8 Gm Inhaler) 2 puff INHALE Q6H PRN PRN Reason: shortness of breath or wheezing Benzocaine (Throat Lozenge, Medicated Lozenge) 1 lozenge MUCOUS MEM Q2H PRN PRN Reason: Sore Throat Heparin Sodium (Porcine) (Heparin Sodium,Porcine 5,000 Unit/Ml Vial) 5,000 unit SUBCUT Q12H [facility] Last Admin: 07/26/24 07:53 Dose: 5,000 unit Documented By: LINDSAY Acetaminophen ([facility]) 1,000 mg in 100 mls @ 400 mls/hr IV Q6H [facility] Last Infusion: 07/26/24 06:41 Dose: Infused Documented By: RISA Lisinopril (Lisinopril 10 Mg Tablet) 10 mg PO DAILY [facility]; Protocol Last Admin: 07/26/24 07:53 Dose: 10 mg Documented By: LINDSAY Morphine Sulfate (Morphine Sulfate 2 Mg/Ml Cartridge) 2 mg IVPUSH Q4H PRN; Protocol PRN Reason: Pain, Severe (Pain Scale 7-10) Last Admin: 07/25/24 00:07 Dose: 2 mg Documented By: HO.CASTILM Nicotine (Nicotine 14 Mg Patch.Td24) 14 mg TRANSDERMA DAILY [facility] Last Admin: 07/26/24 08:03 Dose: Not Given Documented By: LINDSAY Non-Admin Reason: Patient Refused Pt Own (Umeclidinium -Vilanterol [Anoro Ellipta] 62.5-25 Mcg /Actuation Bl 1 inhalation INHALE RDAILY [facility] Last Admin: 07/25/24 12:17 Dose: 1 inhalation Documented By: LINDSAY Ondansetron HCl (Ondansetron Hcl 4 Mg/2 Ml Vial) 4 mg IVPUSH Q8H PRN PRN Reason: Nausea and Vomiting Last Admin: 07/26/24 05:40 Dose: 4 mg Documented By: RISA Sodium Chloride (0.9 % Sodium Chloride Flush 3 Ml Syringe) 3 ml IVFLUSH QSHIFT [facility] Last Admin: 07/26/24 07:53 Dose: 3 ml Documented By: LINDSAY Labs 07/23/24 05:43 07/23/24 05:43 Procedures Date of Service Date of Service: 07/26/24 Progress Note: A&P Assessment and plan (1) Status post exploratory laparotomy: Status: Acute Plan POD #4 s/p exploratory laparotomy, takedown adhesion/adhesionolysis for complete SBO. GI function slowly returning. Pain has been well controlled. VSS- has been hypertensive. Exam benign with clean incision, softly distended. Diet as tolerated. OOB/ambulation. Repeat BMP this AM. Will ask hospitalists to resee regarding hypertension. On home lisinopril dose. Time Spent With Patient Time: Total time managing care of this patient today ____ minutes. Quality Stroke Does the patient have a stroke diagnosis?: No VTE Prior VTE?: No VTE Risk Level:: Surgical - high VTE Device Contraindication: N/A - Device Ordered VTE Drug Contraindication: N/A - Med Ordered
--- NOTE | 2024-07-26 11:10 | P.PNIM_ITS ---
Subjective Subjective Date of Service: 07/26/24 Interval History: Follow up for 89-year-old female admitted to the hospital under general surgery services with mid small-bowel volvulus and exploratory laparotomy. F/U for BP management. Patient's BP has been elevated throughout most of her hospital stay with a high of 157/70 during the last 24 hours. Pt Seen and evaluated at bedside she is resting comfortably in bed. Reports pain reasonably well- controlled with current regimen, though notes discomfort with cough. Some nausea last night but no vomiting. Denies headache. Reports has been able to tolerate small amounts of solid food yesterday and this morning. Has been trying to keep up with her fluids. chest pain /pressure, palpitations. No SOB or difficulty breathing. Review of Systems Negative except for that which is stated in the HPI. Physical Exam 2 Vital Signs: Vital Signs: Last Vital Signs Temp 98.6 F 07/26/24 08:54 Pulse 71 07/26/24 08:54 Resp 12 07/26/24 08:54 BP 157/70 H 07/26/24 08:54 Pulse Ox 96 07/26/24 08:54 O2 Del Method Room Air 07/26/24 08:54 O2 Flow Rate 6 07/22/24 15:40 BMI result Body Mass Index 19.0 General: AOx3, no acute distress Resp: CTA bilaterally CVS: S1, S2, RRR GI: +BS, appropriate tenderness at surgical sites Skin: Warm, dry Neuro: Cranial nerves II-XII grossly intact bilaterally. Motor grossly intact bilaterally Extremities: No edema Psych: Appropriate affect Objective Data Active Medications Albuterol Sulfate (Albuterol Sulfate 90 Mcg 8 Gm Inhaler) 2 puff INHALE Q6H PRN PRN Reason: shortness of breath or wheezing Benzocaine (Throat Lozenge, Medicated Lozenge) 1 lozenge MUCOUS MEM Q2H PRN PRN Reason: Sore Throat Heparin Sodium (Porcine) (Heparin Sodium,Porcine 5,000 Unit/Ml Vial) 5,000 unit SUBCUT Q12H [facility] Last Admin: 07/26/24 07:53 Dose: 5,000 unit Documented By: LINDSAY Acetaminophen (Ofirmev) 1,000 mg in 100 mls @ 400 mls/hr IV Q6H [facility] Last Infusion: 07/26/24 06:41 Dose: Infused Documented By: RISA Lisinopril (Lisinopril 10 Mg Tablet) 10 mg PO DAILY [facility]; Protocol Last Admin: 07/26/24 07:53 Dose: 10 mg Documented By: LINDSAY Morphine Sulfate (Morphine Sulfate 2 Mg/Ml Cartridge) 2 mg IVPUSH Q4H PRN; Protocol PRN Reason: Pain, Severe (Pain Scale 7-10) Last Admin: 07/25/24 00:07 Dose: 2 mg Documented By: VIRGINIA Nicotine (Nicotine 14 Mg Patch.Td24) 14 mg TRANSDERMA DAILY [facility] Last Admin: 07/26/24 08:03 Dose: Not Given Documented By: LINDSAY Non-Admin Reason: Patient Refused Pt Own (Umeclidinium -Vilanterol [Anoro Ellipta] 62.5-25 Mcg /Actuation Bl 1 inhalation INHALE RDAILY [facility] Last Admin: 07/25/24 12:17 Dose: 1 inhalation Documented By: LINDSAY Ondansetron HCl (Ondansetron Hcl 4 Mg/2 Ml Vial) 4 mg IVPUSH Q8H PRN PRN Reason: Nausea and Vomiting Last Admin: 07/26/24 05:40 Dose: 4 mg Documented By: RISA Sodium Chloride (0.9 % Sodium Chloride Flush 3 Ml Syringe) 3 ml IVFLUSH QSHIFT [facility] Last Admin: 07/26/24 07:53 Dose: 3 ml Documented By: LINDSAY Labs 07/23/24 05:43 07/23/24 05:43 Assessment and Plan (1) Status post exploratory laparotomy: Status: Acute Plan Pt is female admitted to the hospital under general surgery services with small bowel volvulus s/p exploratory laparotomy. Follow up for BP management. Small bowel volvulus S/P exploratory laparotomy with takedown of adhesions Plan as per general surgery Hypertension BP mostly elevated during hospital stay Labile but slightly better controlled x24 hours Continue lisinopril 10mg Has been normotensive within past 24 hours; will continue to monitor for now without any changes Thank you for allowing us to participate in the care of this pt. Will continue to follow along with you. Quality Stroke Does the patient have a stroke diagnosis?: No VTE Prior VTE?: No VTE Risk Level:: Surgical - high VTE Device Contraindication: N/A - Device Ordered VTE Drug Contraindication: N/A - Med Ordered
[2024-07-26 11:13] LABS: Anion Gap 10 (12-20); Blood Urea Nitrogen 15 mg/dL (9-16); Calcium 9.3 mg/dL (8.4-10.2); Carbon Dioxide 27 mmol/L (22-29); Chloride 107 mmol/L (96-108); Creatinine Clr Calc Pharmacy 31.4; Estimated Glomerular Filt Rate > 60; Glucose Random 143 mg/dL (60-115); Potassium 3.9 mmol/L (3.3-5.1); Sodium 140 mmol/L (135-145)
[2024-07-26] MEDS: Lactated Ringers 1,000 ML 50 ML IVCONT (14:59)
[2024-07-26 16:00] VITALS: BP 149/71; PULSE 68; RESP 12; TEMP 36.3; O2SAT 94
[2024-07-26 19:26] VITALS: BP 167/74; PULSE 66; RESP 16; TEMP 36.8; O2SAT 98
[2024-07-26 23:31] VITALS: BP 156/69; PULSE 69; RESP 18; TEMP 36; O2SAT 96
[2024-07-27] MEDS: Acetaminophen 1,000 MG/100 ML PIGGYBACK 400 MG IV ×4 (00:54→18:03)
[2024-07-27 03:31] VITALS: BP 186/69; PULSE 72; RESP 18; TEMP 36.3; O2SAT 98
[2024-07-27] MEDS: ondansetron HCL 4 MG/2 ML VIAL IVPUSH (05:12)
[2024-07-27 07:34] VITALS: BP 148/65; PULSE 67; RESP 16; TEMP 36.1; O2SAT 98
[2024-07-27] MEDS: lisinopriL 5 MG TABLET PO (08:20)
[2024-07-27] MEDS: lisinopriL 10 MG TABLET PO (08:21)
[2024-07-27] MEDS: Heparin Sodium,Porcine 5,000 UNIT/ML VIAL 5000 UNIT SUBCUT ×2 (08:22→20:25)
--- NOTE | 2024-07-27 08:44 | PM.PNGS ---
Subjective Subjective Date of Service: 07/27/24 Interval history: Continues to complain of nausea. Thinks she has began to pass more flatus. OOB and ambulating. Physical Exam Vital Signs: Vital Signs: Last Vital Signs Temp 97.0 F 07/27/24 07:34 Pulse 67 07/27/24 07:34 Resp 16 07/27/24 07:34 BP 148/65 H 07/27/24 07:34 Pulse Ox 98 07/27/24 07:34 O2 Del Method Room Air 07/27/24 07:34 O2 Flow Rate 6 07/22/24 15:40 BMI result Body Mass Index 19.0 Const: General: comfortable, no acute distress and alert Orientation/consciousness: patient oriented x3 Resp: Effort & Inspection: normal respiratory effort GI: Inspection: No distended and Yes incision (clean) Palpation (GI): Soft to palpation, Tenderness to palpation present (GI) (mild incisional) and no guarding Skin: General skin exam: no rashes or lesions noted Neuro: General: patient oriented x3 and moves all extremities Objective Data Active Medications Albuterol Sulfate (Albuterol Sulfate 90 Mcg 8 Gm Inhaler) 2 puff INHALE Q6H PRN PRN Reason: shortness of breath or wheezing Benzocaine (Throat Lozenge, Medicated Lozenge) 1 lozenge MUCOUS MEM Q2H PRN PRN Reason: Sore Throat Heparin Sodium (Porcine) (Heparin Sodium,Porcine 5,000 Unit/Ml Vial) 5,000 unit SUBCUT Q12H [facility] Last Admin: 07/27/24 08:22 Dose: 5,000 unit Documented By: BRENNA Acetaminophen (Ofirmev) 1,000 mg in 100 mls @ 400 mls/hr IV Q6H [facility] Last Infusion: 07/27/24 07:08 Dose: Infused Documented By: BRENNA Lactated Ringer's (Lr) 1,000 mls @ 50 mls/hr IVCONT .Q20H [facility] Last Admin: 07/26/24 14:59 Dose: 50 mls/hr Documented By: LINDSAY Lisinopril (Lisinopril 10 Mg Tablet) 10 mg PO DAILY [facility]; Protocol Last Admin: 07/27/24 08:21 Dose: 10 mg Documented By: BRENNA Lisinopril (Lisinopril 5 Mg Tablet) 5 mg PO ONCE ONE; Protocol Stop: 07/27/24 09:01 Last Admin: 07/27/24 08:20 Dose: 5 mg Documented By: BRENNA Metoclopramide HCl (Metoclopramide Hcl 10 Mg/2 Ml Vial) 5 mg IVPUSH Q6H PRN PRN Reason: Nausea and Vomiting Morphine Sulfate (Morphine Sulfate 2 Mg/Ml Cartridge) 2 mg IVPUSH Q4H PRN; Protocol PRN Reason: Pain, Severe (Pain Scale 7-10) Last Admin: 07/25/24 00:07 Dose: 2 mg Documented By: VIRGINIA Nicotine (Nicotine 14 Mg Patch.Td24) 14 mg TRANSDERMA DAILY [facility] Last Admin: 07/27/24 07:26 Dose: Not Given Documented By: BRENNA Non-Admin Reason: Patient Refused Pt Own (Umeclidinium -Vilanterol [Anoro Ellipta] 62.5-25 Mcg /Actuation Bl 1 inhalation INHALE RDAILY [facility] Last Admin: 07/26/24 18:33 Dose: Not Given Documented By: LINDSAY Non-Admin Reason: pt refused Ondansetron HCl (Ondansetron Hcl 4 Mg/2 Ml Vial) 4 mg IVPUSH Q8H PRN PRN Reason: Nausea and Vomiting Last Admin: 07/27/24 05:12 Dose: 4 mg Documented By: JEAN Sodium Chloride (0.9 % Sodium Chloride Flush 3 Ml Syringe) [facility] Last Admin: 07/27/24 08:22 Dose: Not Given Documented By: BRENNA Non-Admin Reason: IV Running Labs 07/23/24 05:43 07/26/24 10:42 Labs: Laboratory Results - last 24 hr 07/26/24 10:42 Anion Gap 10 L Estim Creat Clear Calc 31.4 Estimated GFR > 60 Random Glucose 143 H Calcium 9.3 Procedures Date of Service Date of Service: 07/27/24 Progress Note: A&P Assessment and plan (1) Status post exploratory laparotomy: Status: Acute (2) SBO (small bowel obstruction): Status: Acute Plan POD #4 s/p exploratory laparotomy, takedown adhesion/adhesionolysis for complete SBO. GI function slowly returning which is expected due to intraop findings and surgery. Pain has been well controlled. VSS. Exam benign with clean incision, distention improved. Will advance to full liquids today. Cont OOB/ambulation and increasing activity. Hospitalists following regarding HTN. Cont to monitor for now. Time Spent With Patient Time: Total time managing care of this patient today ____ minutes. Quality Stroke Does the patient have a stroke diagnosis?: No VTE Prior VTE?: No VTE Risk Level:: Surgical - high VTE Device Contraindication: N/A - Device Ordered VTE Drug Contraindication: N/A - Med Ordered
[2024-07-27] MEDS: Lactated Ringers 1,000 ML 50 ML IVCONT (13:04)
--- NOTE | 2024-07-27 13:05 | MHC.CM.PN ---
EMR REVIEWED. PT WILL BE ADVANCED TO FULL LIQUID DIET TODAY, POD#4. CM WILL CONTINUE TO FOLLOW FOR ANY CHANGE TO DC PLAN
[2024-07-27 15:45] VITALS: BP 142/63; PULSE 67; RESP 16; TEMP 36; O2SAT 99
[2024-07-27] MEDS: 0.9 % Sodium Chloride Flush 3 ML SYRINGE IVFLUSH ×2 (18:09→20:25)
[2024-07-27 19:22] VITALS: BP 133/59; PULSE 72; RESP 17; TEMP 36.3; O2SAT 97
[2024-07-27] MEDS: Docusate Sodium 100 MG CAPSULE PO (20:25)
[2024-07-27 23:58] VITALS: BP 126/60; PULSE 65; RESP 18; TEMP 36.2; O2SAT 98
[2024-07-28] MEDS: Acetaminophen 1,000 MG/100 ML PIGGYBACK 400 MG IV ×2 (01:10→06:21)
[2024-07-28 03:22] VITALS: BP 150/66; PULSE 67; RESP 18; TEMP 36; O2SAT 97
[2024-07-28 06:56] VITALS: BP 135/63; PULSE 72; RESP 17; TEMP 36.6; O2SAT 98
[2024-07-28] MEDS: lisinopriL 10 MG TABLET PO (08:11)
[2024-07-28] MEDS: PT OWN (Umeclidinium-Vilanterol [Anoro Ellipta] 62.5-25 mcg/actuation bl 1 EACH INHALE (08:11)
[2024-07-28] MEDS: Heparin Sodium,Porcine 5,000 UNIT/ML VIAL 5000 UNIT SUBCUT (08:12)
[2024-07-28] MEDS: Docusate Sodium 100 MG CAPSULE PO (08:12)
[2024-07-28] MEDS: 0.9 % Sodium Chloride Flush 3 ML SYRINGE IVFLUSH (08:12)
--- NOTE | 2024-07-28 09:10 | P.PNGS_ITS ---
Subjective Subjective Date of Service: 07/28/24 Interval history: Tolerating solid diet without nausea or vomiting. Continues to pass flatus. Pain minimal. Physical Exam 2 Vital Signs: Vital Signs: Last Vital Signs Temp 98 F 07/28/24 06:56 Pulse 72 07/28/24 06:56 Resp 17 07/28/24 06:56 BP 135/63 07/28/24 06:56 Pulse Ox 98 07/28/24 06:56 O2 Del Method Room Air 07/28/24 06:56 O2 Flow Rate 6 07/22/24 15:40 BMI result Body Mass Index 19.0 Const: Orientation/consciousness: patient oriented x3 Resp: Effort & Inspection: normal respiratory effort GI: Inspection: No distended and Yes incision (clean) Palpation (GI): Soft to palpation and nontender Skin: General skin exam: no rashes or lesions noted Neuro: General: patient oriented x3 and moves all extremities Objective Data Active Medications Albuterol Sulfate (Albuterol Sulfate 90 Mcg 8 Gm Inhaler) 2 puff INHALE Q6H PRN PRN Reason: shortness of breath or wheezing Benzocaine (Throat Lozenge, Medicated Lozenge) 1 lozenge MUCOUS MEM Q2H PRN PRN Reason: Sore Throat Docusate Sodium (Docusate Sodium 100 Mg Capsule) 100 mg PO BID [facility] Last Admin: 07/28/24 08:12 Dose: 100 mg Documented By: BRENNA Heparin Sodium (Porcine) (Heparin Sodium,Porcine 5,000 Unit/Ml Vial) 5,000 unit SUBCUT Q12H [facility] Last Admin: 07/28/24 08:12 Dose: 5,000 unit Documented By: BRENNA Acetaminophen (Ofirmev) 1,000 mg in 100 mls @ 400 mls/hr IV Q6H [facility] Last Infusion: 07/28/24 06:38 Dose: Infused Documented By: JEAN Lisinopril (Lisinopril 10 Mg Tablet) 10 mg PO DAILY [facility]; Protocol Last Admin: 07/28/24 08:11 Dose: 10 mg Documented By: BRENNA Metoclopramide HCl (Metoclopramide Hcl 10 Mg/2 Ml Vial) 5 mg IVPUSH Q6H PRN PRN Reason: Nausea and Vomiting Morphine Sulfate (Morphine Sulfate 2 Mg/Ml Cartridge) 2 mg IVPUSH Q4H PRN; Protocol PRN Reason: Pain, Severe (Pain Scale 7-10) Last Admin: 07/25/24 00:07 Dose: 2 mg Documented By: [place] Nicotine (Nicotine 14 Mg Patch.Td24) 14 mg TRANSDERMA DAILY [facility] Last Admin: 07/28/24 06:58 Dose: Not Given Documented By: BRENNA Non-Admin Reason: Patient Refused Pt Own (Umeclidinium -Vilanterol [Anoro Ellipta] 62.5-25 Mcg /Actuation Bl 1 inhalation INHALE RDAILY [facility] Last Admin: 07/28/24 08:11 Dose: 1 inhalation Documented By: BRENNA Ondansetron HCl (Ondansetron Hcl 4 Mg/2 Ml Vial) 4 mg IVPUSH Q8H PRN PRN Reason: Nausea and Vomiting Last Admin: 07/27/24 05:12 Dose: 4 mg Documented By: JEAN Sodium Chloride (0.9 % Sodium Chloride Flush 3 Ml Syringe) 3 ml IVFLUSH QSHIFT [facility] Last Admin: 07/28/24 08:12 Dose: 3 ml Documented By: BRENNA Labs 07/23/24 05:43 07/26/24 10:42 Procedures Date of Service Date of Service: 07/28/24 Progress Note: A&P Assessment and plan (1) Status post exploratory laparotomy: Status: Acute (2) SBO (small bowel obstruction): Status: Acute Plan POD #5 s/p exploratory laparotomy, takedown adhesion/adhesionolysis for complete SBO. Tolerating a solid diet without nausea or vomiting. Continues to pass flatus. VSS. Exam benign with clean incision, non distended, nontender. Stable for dc to home today. Colace 100mg PO BID until regular bowel movement. F/u in office in 1 week. F/u with PCP regarding HTN. Time Spent With Patient Time: Total time managing care of this patient today ____ minutes. Quality Stroke Does the patient have a stroke diagnosis?: No VTE Prior VTE?: No VTE Risk Level:: Surgical - high VTE Device Contraindication: N/A - Device Ordered VTE Drug Contraindication: N/A - Med Ordered
--- NOTE | 2024-07-28 09:20 | MHC.CM.PN ---
Addendum entered by Alka Ojeda 07/28/24 09:41: FINAL IMM DELIVERED Original Note: DP: PT HAS BEEN MEDICALLY CLEARED FOR DC HOME, NO SERVICES. PT HAS OWN RIDE HOME.
--- NOTE | 2024-07-28 09:40 | P.DS_ITS ---
DS: Providers Provider Date of Service: 07/28/24 <Elva Birch PA-C - Last Filed: 08/02/24 10:07> Date of admission: 07/22/24 14:51 <Elva Birch PA-C - Last Filed: 08/02/24 10:07> Date of discharge: 07/28/24 <Elva Birch PA-C - Last Filed: 08/02/24 10:07> Primary care physician: Crissy Sullivan MD <Elva Birch PA-C - Last Filed: 08/02/24 10:07> Attending physician on admission: Caleb Sorenson <SELIN Bernstein Last Filed: 08/02/24 10:07> Consults: 07/22/24 18:21 Consult to Hospitalist Routine Comment: Consulting Provider: [facility] Reason For Exam: s/p ex lap, COPD, HTN <Elva Birch PA-C - Last Filed: 08/02/24 10:07> Attending physician on discharge: Caleb Sorenson <Elva Birch PA-C - Last Filed: 08/02/24 10:07> DS: Diagnosis Discharge Diagnosis (1) Status post exploratory laparotomy: Status: Acute <SELIN Bernstein Last Filed: 08/02/24 10:07> (2) SBO (small bowel obstruction): Status: Acute <SELIN Bernstein Last Filed: 08/02/24 10:07> DS: Summary Hospital Course Hospital Course: HPI AT ADMISSION: November Margarita Monroe is a 89 year old female with PMH significant for COPD, b/l carotid stenosis, HTN presenting with acute onset of severe abdominal pain. She she was awoken out of sleep around 3am by severe LLQ that became more diffuse in nature. She has never had similar episodes in the past. She denies passing flatus since the pain began. She tried to drink coffee as she just thought she was constipated and vomited this up. She had a few very small loose stools early this morning without alleviation in pain. She continues to feel nauseous and bloated. Work up in the ED included CBC, BMP, LFTs, PT/INR which was significant for plt of 128. CT scan abd pelvis was obtained which showed multiple dilated fluid-filled loops of small bowel in the lower abdomen and pelvis with infiltration and fluid in the mesentery with collapsed distal loops. She has surgical hx of C section, hysterectomy, appendectomy. She denies fever, chills, hematemesis, melena, sick contacts. 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 She denies chest pain, palpitations, dizziness. HOSPITAL COURSE: She was admitted to the surgical service for further treatment of the SBO. Exam and imaging were concerning for closed loop obstruction. It was therefore recommended to proceed with exploratory laparotomy, lysis of adhesions, possible small bowel resection in the OR emergently. She was added onto the OR schedule for that day. NGT tube for decompression has been ordered, continue IVF. Hospitalist consult was ordered for management of her medical comorbidities. On 07/22/24, exploratory laparotomy, takedown adhesion/adhesionolysis was performed by Dr. Sorenson without immediate complication. Intraoperative findings demonstrated an adhesive band in the right lower quadrant, around which the mid small bowel was twisted and the affected small bowel was edematous and congested but viable. She tolerated the procedure well. She had an uncomplicated but expected slow recovery course while awaiting return of GI function. On POD #1, she had minimal NGT output and it was therefore removed and she was advanced to clear liquids. Her activity was increased. Her oscar was removed on POD #2. She was kept on clear liquids until she began to pass more continuous flatus. She was advanced to full liquids and then solids. On the day of discharge, she was tolerating a solid diet without nausea or vomiting, her pain was minimal. She was passing flatus but no BM. She was ambulating without difficulty. She was hemodynamically stable. Her abd was benign with clean incision, soft, nondistended. She felt ready for discharge. She was discharged to home on 07/28/24. She was instructed to take colace 100mg BID until she begins to have daily bowel movements. She is to follow up in the office in 1 week. Her SBP was labile but consistently elevated but was slightly better controlled over the tail end of her stay and therefore the hospitalists wanted to continue her home dose of lisinopril and have her follow up with her PCP for further management. <Elva Birch PA-C - Last Filed: 08/02/24 10:07> Status at Discharge Functional status at discharge: uses cane/walker <Elva Birch PA-C - Last Filed: 08/02/24 10:07> Overall status at discharge: patient is progressing back to baseline <Elva Birch PA-C - Last Filed: 08/02/24 10:07> Time Attestation Discharge Coordination Time (in mins): 35 <Elva Birch PA-C - Last Filed: 08/02/24 10:07> 30 <Caleb Sorenson MD - Last Filed: 08/02/24 09:43> Quality: Safe Use of Opioids Does Pt have an Active Cancer Diagnosis on the Problem List?: No <Caleb Sorenson MD - Last Filed: 08/02/24 09:43> Quality: Stroke Does the patient have a stroke diagnosis?: No <Caleb Sorenson MD - Last Filed: 08/02/24 09:43> Physical Exam Vital Signs: Vital Signs: Last Vital Signs Temp 98 F 07/28/24 06:56 Pulse 72 07/28/24 06:56 Resp 17 07/28/24 06:56 BP 135/63 07/28/24 06:56 Pulse Ox 98 07/28/24 06:56 O2 Del Method Room Air 07/28/24 06:56 O2 Flow Rate 6 07/22/24 15:40 BMI result Body Mass Index 19.0 <Elva Birch PA-C - Last Filed: 08/02/24 10:07> Const: General: comfortable, no acute distress and alert <SELIN Bernstein Last Filed: 08/02/24 10:07> Nutritional Appearance: thin <SELIN Bernstein Last Filed: 08/02/24 10:07> Orientation/consciousness: patient oriented x3 <SELIN Bernstein Last Filed: 08/02/24 10:07> GI: Inspection: No distended and Yes incision (clean) <SELIN Bernstein Last Filed: 08/02/24 10:07> Palpation (GI): Soft to palpation and nontender <Elva Birch PA-C - Last Filed: 08/02/24 10:07> Skin: General skin exam: no rashes or lesions noted <Elva Birch PA-C - Last Filed: 08/02/24 10:07> Neuro: General: patient oriented x3 and moves all extremities <Elva Birch PA-C - Last Filed: 08/02/24 10:07> Discharge Plan Discharge Anticipated Discharge Date/Time: 07/28/24 14:06 <Elva Birch PA-C - Last Filed: 08/02/24 10:07> Patient Disposition: Home, Self-Care <Elva Birch PA-C - Last Filed: 08/02/24 10:07> Discharge Diagnosis: SBO <Elva Birch PA-C - Last Filed: 08/02/24 10:07> SBO <Caleb Sorenson MD - Last Filed: 08/02/24 09:43> Referrals: Crissy Sullivan MD [Primary Care Provider] - 1 Week Caleb Sorenson MD [Physician] - 1 Week <Elva Birch PA-C - Last Filed: 08/02/24 10:07> Discharge Medications: New docusate sodium [Colace] 100 mg capsule 100 mg PO BID PRN (Reason: constipation) Qty: 30 0RF oxycodone 5 mg tablet 5 mg PO Q6H PRN (Reason: pain (scale score 7-10)) Qty: 10 0RF Rx Instructions: Partial Fill upon patient request. Continued albuterol sulfate [Ventolin HFA] 90 mcg/actuation HFA aerosol inhaler 2 puff inhalation Q6H PRN (Reason: shortness of breath or wheezing) Qty: 18 3RF rosuvastatin 5 mg tablet 5 mg PO DAILY Qty: 30 5RF acetaminophen 325 mg Tablet 650 mg PO Q6H PRN (Reason: Sinus Symptoms) loratadine 10 mg Tablet 10 mg PO DAILY PRN (Reason: allergies) Anoro Ellipta 62.5-25 mcg/actuation blister with device 1 ea inhalation DAILY cholecalciferol (vitamin D3) 50 mcg (2,000 unit) capsule 50 mcg PO DAILY No Action lisinopril 10 mg tablet 10 mg PO DAILY Qty: 90 4RF <Elva Birch PA-C - Last Filed: 08/02/24 10:07> Discharge Orders: Discharge Order (Routine); Ordered 07/28/24 Ordered By: Elva Birch <Elva Birch PA-C - Last Filed: 08/02/24 10:07> Diet: Advance to usual diet <Elva Birch PA-C - Last Filed: 08/02/24 10:07> Advance to usual diet <Caleb Sorenson MD - Last Filed: 08/02/24 09:43> Activity on Discharge: No heavy lifting <Elva Birch PA-C - Last Filed: 08/02/24 10:07> No heavy lifting <Caleb Sorenson MD - Last Filed: 08/02/24 09:43> Stand Alone Forms: Patient Portal Discharge page <Elva Birch PA-C - Last Filed: 08/02/24 10:07> Print Language: Kiswahili <SELIN Bernstein Last Filed: 08/02/24 10:07> Activity Restrictions/Additional Instructions: Apply an ice pack for short intervals (20 minutes on, followed by at least 20 minutes off) for the first 2 days. Do not apply heat. Do not use creams, lotions, or topical antibiotics. These can cause infection or allergic reaction. Ok to shower 48 hours after your surgery. Remove dressings in 2 days and replace as needed. You have steri strips (small white cloth strips) covering your incision- these will fall off ~1 week. Take colace 100mg PO twice a day until you have a regular bowel movement. Follow up in office with Dr. Sorenson in 1 week. ([phone]) No heavy lifting (>10lbs) or strenuous activity! Call Your Doctor If: -Your temperature exceeds 101.5? F -You experience excessive pain or swelling -You have an unexpected reaction to medication -You have excessive bleeding -You experience continued vomiting/nausea -Your incision begins to separate -Your incision shows signs of infection such as increased redness, swelling, excessive pain, drainage (light blood or clear fluid is normal) or heat <Elva Birch PA-C - Last Filed: 08/02/24 10:07> Care Plan Goals: Return to baseline health and resume normal activities following recovery period. <SELIN Bernstein Last Filed: 08/02/24 10:07> Health Concerns: SBO <SELIN Bernstein Last Filed: 08/02/24 10:07> Plan of Treatment: s/p exploratory laparotomy, lysis of adhesions <SELIN Bernstein Last Filed: 08/02/24 10:07> Assessment: Doing well post op. <Elva Birch PA-C - Last Filed: 08/02/24 10:07> Patient Instructions: Bowel Obstruction (GEN) <SELIN Bernstein Last Filed: 08/02/24 10:07> Discharge Date/Time: 07/28/24 13:14 <SELIN Bernstein Last Filed: 08/02/24 10:07>
== END 2024-07-28 13:14 | disposition home or self-care (01) | DRG 337 ==
LOC: HO.ED 12:11 → HO.SSS 12:25 → HO.SSSA 17:03 → HO.S3 17:18
PROVIDERS: Physician Assistant Surgical; Absent Provider Internal Medicine Critical Care Medicine; Admitting Provider Internal Medicine Critical Care Medicine; Emergency Provider Emergency Medicine; PCP Internal Medicine; Visit Provider Surgery
PROC: 0DN80ZZ Release Small Intestine, Open Approach (ICD-10-PCS; CPT 49000; principal; 2024-07-22 13:30)
DX: K56.2 Volvulus (principal); K66.0 Peritoneal adhesions (postprocedural) (postinfection); F17.210 Nicotine dependence, cigarettes, uncomplicated; Z71.6 Tobacco abuse counseling; J44.9 Chronic obstructive pulmonary disease, unspecified; E78.5 Hyperlipidemia, unspecified; I10 Essential (primary) hypertension; J45.909 Unspecified asthma, uncomplicated; Z79.899 Other long term (current) drug therapy
CPT/HCPCS: 36415; 74177; 80048; 80053; 82248; 83605; 83690; 85025; 85610; 86850; 86900; 86901; 93005; 99285; C1758; J0131; J0330; J0690; J1644; J2003; J2270; J2371; J2405; J2704; J2795; J3010; J7120; Q9967

== ENCOUNTER → 2024-07-22 09:51 | Outpatient (BNV) | payer OTHER, SELFPAY | PROVIDERS: Emergency Provider Emergency Medicine; PCP Internal Medicine; Visit Provider Radiology Diagnostic Radiology | DX: K56.699 Other intestinal obstruction unspecified as to partial versus complete obstruction (principal) | CPT/HCPCS: 74177 ==

== ENCOUNTER → 2024-07-22 09:52 | Outpatient (BNV) | payer OTHER, SELFPAY | PROVIDERS: Emergency Provider Emergency Medicine; PCP Internal Medicine; Visit Provider Internal Medicine Cardiovascular Disease | DX: I45.2 Bifascicular block (principal) | CPT/HCPCS: 93010 ==

== ENCOUNTER → 2024-07-22 12:25 | Outpatient (BNV) | payer OTHER, SELFPAY | PROVIDERS: Emergency Provider Emergency Medicine; PCP Internal Medicine; Visit Provider Physician Assistant Surgical | DX: Q43.3 Congenital malformations of intestinal fixation (principal) | CPT/HCPCS: 44005; 99024; 99222 ==

== ENCOUNTER → 2024-07-22 14:51 | Outpatient (BNV) | payer OTHER, SELFPAY | PROVIDERS: Absent Provider Internal Medicine Critical Care Medicine; Admitting Provider Internal Medicine Critical Care Medicine; Emergency Provider Emergency Medicine; PCP Internal Medicine; Visit Provider Nurse Practitioner Acute Care | DX: Z98.890 Other specified postprocedural states (principal) | CPT/HCPCS: 99223; 99232 ==

== ENCOUNTER 2024-08-08 13:18 | Outpatient (AMB) | payer OTHER, SELFPAY ==
--- NOTE | 2024-08-08 13:20 | MHC.OFFVIS ---
Intake Visit Reasons: exp lap follow up Intake Note: Patient here s/p exploratory laparotomy, takedown adhesion/adhesionolysis. Reports incision healing well. Steri strips still present. Patient c/o: had 1st BM after surgery last night. No longer taking rx pain meds. Surgery: 07-22-2024 Butcher Assistant Required: No Accompanied by: Self / Same As Patient Allergies codeine [Codeine] Allergy (Mild, Verified 08/08/24 13:24) NAUSEA AND VOMITING azithromycin [From ZITHROMAX Z-EWA] Adverse Reaction (Intermediate, Verified 08/08/24 13:24) N/V/D, severe GI upset HPI Comments Details: Patient presents for follow-up. She is tolerating a diet. She will follow had a bowel movement with some suggestions yesterday. She is increasing her activity level. She has minimal incisional discomfort. [facility] Medical History (Updated 08/05/24 @ 00:01 by Saumya Curry) Abnormal EKG COPD (chronic obstructive pulmonary disease) Stenosis of left carotid artery greater than 50% Chronic cough Hx of transient ischemic attack (TIA) Spongiotic dermatitis Lichen sclerosus Cerumen impaction Tenosynovitis of both wrists Eczema Tachycardia, paroxysmal History of melena Intertrigo Smoker unmotivated to quit Vertigo Menopause Osteoporosis Dyslipidemia HTN (hypertension) Surgical History (Updated 08/08/24 @ 13:29 by Caleb Sorenson MD) Hx of exploratory laparotomy (07/22/24) H/O: hysterectomy History of colonoscopy History of cataract surgery History of appendectomy Family History Father No problems noted. Mother No problems noted. Sister No problems noted. Son No problems noted. Son No problems noted. Son No problems noted. Son No problems noted. Other Substance use disorder Social History Household Members: Significant Other Housing: House Are you a primary career guidance technician to a significant other at home: Yes Do you presently have visiting nurse or other home services: No Alcohol intake: never Patient Tobacco Use Status: Current everyday Tobacco user Tobacco use type: Cigarette Cigarette Packs Per Day: 0 Cigarettes Per Day: 5 Years Smoked: 70 e-Cigarette/Vaping Use: Never Used Second Hand Smoke Exposure: No service: No Current occupational status: retired Current occupation: Right hand dominate Cognitive needs: No Hearing needs: No Vision needs: Yes Physical Exam GI Other: Abdomen is soft. Incision clean dry and intact healing very well Assessment & Plan Assessment & Plan (1) Status post exploratory laparotomy: Code(s): Z98.890 - Other specified postprocedural states Category: Medical Plan Patient was been given local instructions including avoiding strenuous activities next few weeks time and will otherwise follow-up p.r.n.. All questions answered. Coding Level of Care Code Global (95909) Diagnoses Status post exploratory laparotomy Z98.890
--- OUTSIDE RECORDS SUMMARY | 2024-08-08 15:37 | XMS_ITS | Patient Health Record ---
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) Active confirmed Plan Of Treatment Pending Test Test Name Order Date [id number] NAIL, 6 OR MORE 01/16/2021 [id number] NAIL, 6 OR MORE 04/01/2021 [id number] Plate 01/16/2021 Insurance Providers Payer Name Payer Address Payer Phone Subscriber Number Group Number Insured Name Patient Relationship to Insured Coverage Start Date Coverage End Date [id number] [address] [place] [address] [id number] [facility] [place]a mendenhallNovember Self - patient is the insured Medical (General) History Medical History History ICD Code Measles High blood pressure Sinus conditions Transfusions Surgical History Surgery Date(Month/Year) Hospitalization History Reason Date(Month/Year) [facility] 12/2020
--- OUTSIDE RECORDS SUMMARY | 2024-08-08 15:37 | XMS_ITS | Continuity of Care Document ---
Author Organization [facility] [address] [place] [address] Phone [phone] Social History Type Date Description Comments Sex Unknown Medical Devices Description No Information Available Encounters Description No Information Available Assessments Description No Information Available Plan of Treatment No Information Available Functional Status Description No Information Available Mental Status Description No Information Available Referrals Description No Information Available
== END 2024-08-08 13:27 | disposition home or self-care (01) ==
PROVIDERS: PCP Internal Medicine; Visit Provider Surgery
DX: Z98.890 Other specified postprocedural states (principal)
CPT/HCPCS: 99024

== ENCOUNTER → 2024-08-08 13:18 | Outpatient (BNVA) | payer OTHER, SELFPAY | PROVIDERS: PCP Internal Medicine; Visit Provider Surgery | DX: Z98.890 Other specified postprocedural states (principal) | CPT/HCPCS: 99212 ==

== ENCOUNTER 2024-09-05 10:07 | Outpatient (AMB) | payer OTHER, SELFPAY ==
--- NOTE | 2024-09-05 11:03 | AM.OFFWIN_ITS ---
Intake Vital Signs 09/05/24 11:04 Weight 90 lb BP 90/66 Blood Pressure Location Lt brachial Position Sitting Pulse 103 H Pulse Source Pulse Oximeter Pulse Oximetry (%) 97 Oxygen Delivery Method Room Air Intake Visit Reasons: EP headache, unbalanced, LT arm weakness Patient Tobacco Use Status: Current everyday Tobacco user Allergies codeine [Codeine] Allergy (Mild, Verified 09/05/24 11:03) NAUSEA AND VOMITING azithromycin [From ZITHROMAX Z-EWA] Adverse Reaction (Intermediate, Verified 09/05/24 11:03) N/V/D, severe GI upset HPI HPI Comments History of Present Illness Details 89 y/o female patient who presents to [facility] walk in clinic with c/o Headaches, dizziness and feeling unbalanced for few days now. She is accompanied by Son and daughter in Law today who assists with History taking. Pt was seen at a local in [place] Thursday for B/L ear Lavage and irrigation. She was also exhibiting ?TIA ?Stroke like symptoms, but that was quickly R/O. Son reports that she had a slight facial droop - symptoms have since resolved. She is S/P Exploratory Laparatomy for SBO. On the side Note; Patient lost her living in Partner (1 week ago) - he suddenly from an illness. Pt reports that she hasn't been sleeping well at night due to this and she feels Sad and depressed. Advised Pt to have some mental health counselling and she agreed to to talk to our Community Navigator (Zenaida) today in the office. [facility] Medical History (Updated 09/05/24 @ 12:10 by Linda Preston NP) Generalized headaches Grief Abnormal EKG COPD (chronic obstructive pulmonary disease) Stenosis of left carotid artery greater than 50% Chronic cough Hx of transient ischemic attack (TIA) Spongiotic dermatitis Lichen sclerosus Cerumen impaction Tenosynovitis of both wrists Eczema Tachycardia, paroxysmal History of melena Intertrigo Smoker unmotivated to quit Vertigo Menopause Osteoporosis Dyslipidemia HTN (hypertension) Surgical History (Updated 08/08/24 @ 13:29 by Caleb Sorenson MD) Hx of exploratory laparotomy (07/22/24) H/O: hysterectomy History of colonoscopy History of cataract surgery History of appendectomy Family History Father No problems noted. Mother No problems noted. Sister No problems noted. Son No problems noted. Son No problems noted. Son No problems noted. Son No problems noted. Other Substance use disorder Social History Household Members: Significant Other Housing: House Are you a primary attending ambulatory care to a significant other at home: Yes Do you presently have visiting nurse or other home services: No Alcohol intake: never Patient Tobacco Use Status: Current everyday Tobacco user Tobacco use type: Cigarette Cigarette Packs Per Day: 0 Cigarettes Per Day: 5 Years Smoked: 70 e-Cigarette/Vaping Use: Never Used Second Hand Smoke Exposure: No service: No Current occupational status: retired Current occupation: Right hand dominate Cognitive needs: No Hearing needs: No Vision needs: Yes Review of Systems Const All systems reviewed & are unremarkable except as noted in HPI and below Physical Exam Vital Signs: Last Vital Signs Pulse 103 H 09/05/24 11:04 BP 90/66 09/05/24 11:04 Pulse Ox 97 09/05/24 11:04 Oxygen Delivery Method Room Air 09/05/24 11:04 Const General: no acute distress Nutritional Appearance: thin and other (Frail) Orientation/consciousness: patient oriented x3 Limitations: ambulation with walker Eyes Pupils: Equal, round and reactive pupils present Resp Effort & Inspection: normal respiratory effort Auscultation: clear to auscultation bilaterally Cardio Heart sounds: S1 normal heart sound present and S2 normal heart sound present Neuro General: patient oriented x3 and moves all extremities Cranial nerves: Yes Equal, round and reactive pupils present Motor exam (neuro): 5/5 motor strength present throughout Psych Speech and movement: Normal speech and movement present Affect: Sad affect present Attitude: cooperative Thought process: Normal thought process present Assessment & Plan Assessment & Plan (1) Grief: Code(s): F43.21 - Adjustment disorder with depressed mood Plan: Provided Warm Hand-off with our Community Navigotor, who was able to arrange Grief Counselling and therapy. (2) Generalized headaches: Code(s): R51.9 - Headache, unspecified Plan: Advised the importance of sleep Acetaminophen for pain relief May use OTC sleep Aids. Agreed Grief counselling - she will have Telemedicine sessions with a therapist Coding Level of Care Code Est Pt Level 4 (90988) Diagnoses Grief F43.21 Generalized headaches R51.9 Time Spent (min) 20
[2024-09-05 11:04] VITALS: BP 90/66; PULSE 103; O2SAT 97
--- OUTSIDE RECORDS SUMMARY | 2024-09-05 11:15 | XMS_ITS | Continuity of Care Document ---
Author Organization [facility] [address] [place] [address] Phone [phone] Social History Type Date Description Comments Sex Unknown Medical Devices Description No Information Available Encounters Description No Information Available Assessments Description No Information Available Plan of Treatment No Information Available Functional Status Description No Information Available Mental Status Description No Information Available Referrals Description No Information Available
--- OUTSIDE RECORDS SUMMARY | 2024-09-05 11:15 | XMS_ITS | Patient Health Record ---
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 Plan Of Treatment Pending Test Test Name Order Date [id number] NAIL, 6 OR MORE 01/16/2021 [id number] NAIL, 6 OR MORE 04/01/2021 [id number] Plate 01/16/2021 Insurance Providers Payer Name Payer Address Payer Phone Subscriber Number Group Number Insured Name Patient Relationship to Insured Coverage Start Date Coverage End Date [id number] [address] [address] [place] [address] [id number] [facility] [place] Lesa mendenhallNovember Self - patient is the insured Medical (General) History Medical History History ICD Code Measles High blood pressure Sinus conditions Transfusions Surgical History Surgery Date(Month/Year) Hospitalization History Reason Date(Month/[place] [facility] [place]
== END 2024-09-05 13:04 | disposition home or self-care (01) ==
PROVIDERS: PCP Internal Medicine; Visit Provider Nurse Practitioner Family
DX: F43.21 Adjustment disorder with depressed mood (principal); R51.9 Headache, unspecified

== ENCOUNTER → 2024-09-05 10:07 | Outpatient (BNVA) | payer OTHER, SELFPAY | PROVIDERS: PCP Internal Medicine; Visit Provider Nurse Practitioner Family | DX: R51.9 Headache, unspecified (principal) | CPT/HCPCS: 99212 ==

== ENCOUNTER 2024-11-04 11:51 | Outpatient (REF) | payer MEDICARE, SELFPAY | END 2024-11-04 11:52 | disposition home or self-care (01) | LOC: HO.LAB 11:51 | PROVIDERS: PCP Internal Medicine | DX: N30.01 Acute cystitis with hematuria (principal) | CPT/HCPCS: 81003; 87086; 87088; 87186; 99212 ==

== ENCOUNTER 2024-11-04 11:51 | Outpatient (AMB) | payer OTHER, SELFPAY ==
[2024-11-04 11:54] VITALS: BP 108/70; PULSE 51; TEMP 36.4; O2SAT 98; BMI 16.7
--- NOTE | 2024-11-04 11:54 | AM.OFFWIN_ITS ---
Intake Vital Signs 11/04/24 11:54 Height 4 ft 10 in Weight 80 lb 2 oz BMI 16.7 BP 108/70 Blood Pressure Location Lt brachial Position Sitting Pulse 51 Pulse Source Pulse Oximeter Temp 97.6 F Temp Source Oral Pulse Oximetry (%) 98 Oxygen Delivery Method Room Air Intake Visit Reasons: EP UTI? Intake Note: Pt presents to the office today for c/o urinary frequency and pain x3 days. Patient Tobacco Use Status: Current everyday Tobacco user Allergies codeine [Codeine] Allergy (Mild, Verified 11/04/24 11:58) NAUSEA AND VOMITING azithromycin [From ZITHROMAX Z-EWA] Adverse Reaction (Intermediate, Verified 11/04/24 11:58) N/V/D, severe GI upset HPI HPI Comments History of Present Illness Details History of Present Illness - The patient is an 89-year-old female p resenting with urinary pain and discomfort upon urination. - These symptoms began three days ago, w ith painful urination being the primary concern. - The patient did not experience fever, back pain, or visible blood in the urine during this episode. - She has a documented history of a urin rivka tract infection treated with ce furoxime the previous May, which was effective. - [facility] and attempts to manage symptoms through increased water and Gatorade intake and reduced coffee consumption. Physical Exam General: Cooperative, healthy appearing, comfortable, no acute distress and well developed Orientation: Patient oriented x3 Limitations: No limitations Head: Normal to inspection Ears: Hearing grossly normal bilaterally Nose: Normal External nose present Face and sinus: Normal facial exam Eyes: Appearance normal, both eyes and all related structures Neck: Normal visual inspection and Yes full ROM Respiratory: Normal respiratory effort and able to speak in complete sentences. Skin: No rashes or lesions noted Neuro: Patient oriented x3 Extremities: Normal to inspection [facility] Medical History Generalized headaches Grief Abnormal EKG COPD (chronic obstructive pulmonary disease) Stenosis of left carotid artery greater than 50% Chronic cough Hx of transient ischemic attack (TIA) Spongiotic dermatitis Lichen sclerosus Cerumen impaction Tenosynovitis of both wrists Eczema Tachycardia, paroxysmal History of melena Intertrigo Smoker unmotivated to quit Vertigo Menopause Osteoporosis Dyslipidemia HTN (hypertension) Surgical History Status post exploratory laparotomy Hx of exploratory laparotomy (07/22/24) H/O: hysterectomy History of colonoscopy History of cataract surgery History of appendectomy Family History Father No problems noted. Mother No problems noted. Sister No problems noted. Son No problems noted. Son No problems noted. Son No problems noted. Son No problems noted. Other Substance use disorder Social History Household Members: Significant Other Housing: House Are you a primary professional healthcare representative to a significant other at home: Yes Do you presently have visiting nurse or other home services: No Alcohol intake: never Patient Tobacco Use Status: Current everyday Tobacco user Tobacco use type: Cigarette Cigarette Packs Per Day: 0 Cigarettes Per Day: 5 Years Smoked: 70 e-Cigarette/Vaping Use: Never Used Second Hand Smoke Exposure: No service: No Current occupational status: retired Current occupation: Right hand dominate Cognitive needs: No Hearing needs: No Vision needs: Yes Review of Systems Const All systems reviewed & are unremarkable except as noted in HPI and below Physical Exam Vital Signs: Last Vital Signs Temp 97.6 F 11/04/24 11:54 Pulse 51 11/04/24 11:54 BP 108/70 11/04/24 11:54 Pulse Ox 98 11/04/24 11:54 Oxygen Delivery Method Room Air 11/04/24 11:54 BMI result Body Mass Index 16.7 Results AMB Urinalysis, Automated UA Leukoctes 125 Jameson/uL Last Edit by Keeley Ness CMA on 11/04/24 12:11 UA Nitrite Positive Last Edit by Keeley Ness CMA on 11/04/24 12:11 UA Urobilinogen 0.2 mg/dL Last Edit by Keeley Ness CMA on 11/04/24 12:11 UA Protein 15 mg/dL Last Edit by Keeley Ness CMA on 11/04/24 12:11 UA pH 5.5 Last Edit by Keeley Ness CMA on 11/04/24 12:11 UA Blood 200 Yobany/uL Last Edit by Keeley Ness CMA on 11/04/24 12:11 UA Specific [place] 1.030 Last Edit by Keeley Ness CMA on 11/04/24 12:11 UA Ketone Negative Last Edit by Keeley Ness CMA on 11/04/24 12:11 UA Bilirubin 0 mg/dL Last Edit by Keeley Ness CMA on 11/04/24 12:11 UA Glucose 0 mg/dL Last Edit by Keeley Ness CMA on 11/04/24 12:11 Assessment & Plan Assessment & Plan (1) UTI (urinary tract infection): Code(s): N39.0 - Urinary tract infection, site not specified Qualifiers: Hematuria presence: with hematuria Urinary tract infection type: acute cystitis Qualified Code(s): N30.01 - Acute cystitis with hematuria Plan: UA 2+ leuks, pos nitrites, 3+ blood. The patient will be treated for acute urinary tract infection with cefuroxime, taken every 12 hours for five days, leveraging its past effectiveness. Urine culture will be sent. The patient is instructed to be vigilant for any new symptoms, including fever or increased discomfort, and encouraged to reach out if these occur. The management plan takes into account the patient's treatment history and current symptoms to ensure a prompt and effective resolution of the current urinary tract infection. Patient was informed and verbally consented to the use of an ambient scribe for clinic note documentation during this visit. Orders: Orders AMB Urinalysis Automated Today Z13.9 - Encounter for screening, unspecified Urine Culture Today N39.0 - Urinary tract infection, site not specified Medications: New cefuroxime axetil 500 mg PO Q12H 10 tabs 0RF Coding Level of Care Code Est Pt Level 3 (02891) Diagnoses Acute cystitis with hematuria N30.01 Hematuria presence: with hematuria Urinary tract infection type: acute cystitis
--- OUTSIDE RECORDS SUMMARY | 2024-11-04 12:41 | XMS_ITS | Patient Health Record ---
Author Organization [facility] [place]i na[place] Segovia Address [address] [place] [address] Care Team Providers Care Voip Network Technician Name Role Phone Nate HOPPER, Crissy Roblero Primary Care Provider Un available Tod Tank Unavailable [phone] Allergies Allergen (clinical drug ingredient) Drug/Non Drug [...] W/U Status Risk Notes Problem Tinea unguium ([id number]) Tinea unguium (B35.1) Active confirmed Plan Of Treatment Pending Test Test Name Order Date [id number] NAIL, 6 OR MORE 01/16/2021 [id number] NAIL, 6 OR MORE 04/01/2021 [id number] Plate 01/16/2021 Insurance Providers Payer Name Payer Address Payer Phone Subscriber Number Group Number Insured Name Patient Relationship to Insured Coverage Start Date Coverage End Date [id number] [address] [place] [address] [id number] [facility] [place] mendenhallNovember Self - patient is the insured Medical (General) History Medical History History ICD Code Measles High blood pressure Sinus conditions Transfusions Surgical History Surgery Date(Month/Year) Hospitalization History Reason Date(Month/Year) [facility] [place] 12/2020
== END 2024-11-04 12:40 | disposition home or self-care (01) ==
PROVIDERS: PCP Internal Medicine; Visit Provider Physician Assistant
DX: N30.01 Acute cystitis with hematuria (principal); Z13.9 Encounter for screening, unspecified

== ENCOUNTER 2024-12-17 22:08 | Inpatient (IN) | payer MEDICARE, OTHER, SELFPAY ==
--- NOTE | ~2024-12-17 | CT_ITS ---
CLINICAL HISTORY: dypsnea, tachycardia, tobacco use CT angiography chest with contrast. 3D Postprocessing. Comparison: None provided Findings: The heart size is normal. RV/LV ratio is normal. The systemic arterial system is not opacified, however at the aortic arch there is a 4.1 cm diameter dilatation (image 31:7), and at the proximal descending thoracic aorta there is a 3 x 1.7 cm saccular aneurysmal dilatation (image 45:8). No pulmonary artery filling defects. The visualized thyroid and mediastinum are unremarkable. Minor dependent atelectasis at the lung bases. There is heavily calcified plaque with a partial coral reef orientation and at least 50 percent luminal stenosis at the suprarenal abdominal aorta. No acute fractures. IMPRESSION: 1. No acute pulmonary embolus. 2. 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 Recommend nonemergent follow-up CT angiography with systemic arterial timing for further characterization. 3. Additional findings as above. This document has been electronically signed by: Bari Arellano MD on 12/18/2024 03:35:17
--- NOTE | ~2024-12-17 | XR_ITS ---
CLINICAL HISTORY: SOB 1 view chest x-ray Comparison: CR/SR - XR CHEST 2V - 05/28/23 13:59 EST Findings: The lungs are clear. Normal size heart. Osteopenia. No acute fracture. IMPRESSION: No consolidation. This document has been electronically signed by: Bari Arellano MD on 12/17/2024 23:47:35
--- NOTE | ~2024-12-17 | CT_ITS ---
CLINICAL HISTORY: Hx left arm weakness, R O old stroke, baseline CT head without contrast Comparison: None provided Findings: No intra-axial mass, midline shift, hydrocephalus, or acute hemorrhage. Age appropriate cerebral volume loss. Patchy low-density within the periventricular and subcortical white matter. There is an area ill-defined hypodensity within the right frontoparietal lobe, measuring 60 mm anteroposterior. The visualized paranasal sinuses and mastoid air cells are normal. The orbits are unremarkable. There is no acute fracture. IMPRESSION: 1. No acute intracranial findings. 2. 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 This document has been electronically signed by: Angus Farfan MD on 12/18/2024 13:21:14
[2024-12-17 22:18] VITALS: BP 158/101; PULSE 144; RESP 22; TEMP 36.8; O2SAT 99; BMI 16.4
[2024-12-17 22:37] VITALS: BP 137/96; PULSE 147; RESP 12; O2SAT 97
[2024-12-17 22:55] LABS: MANUAL DIFF FLAG NO
[2024-12-17 22:57] VITALS: BP 123/90; PULSE 139; RESP 19; O2SAT 99
[2024-12-17 22:58] LABS: Hematocrit 40.6 % (37.0-47.0); Hemoglobin 14.1 g/dl (12.0-16.0); Imm Gran Abs Auto 0.03 X10*3/uL (0.00-0.03); Imm Gran Pct Auto 0.4 % (0.0-0.4); Lymphocytes Absolute Auto 2.1 X10*3/uL (1.2-4.9); Mean Corpuscular HGB Conc 34.7 g/dl (31.0-35.0); Mean Corpuscular Hemoglobin 32.4 pg (27.0-33.0); Mean Corpuscular Volume 93.3 fL (80.0-98.0); NRBC Abs Auto 0.000 X10*3/uL (0.0-0.012); NRBC Pct Auto 0.0 /100WBC (0.0-0.2); Platelet Count 124 X10*3/uL (160-400); Red Blood Count 4.35 X10*6/uL (4.20-5.50); White Blood Count 7.7 X10*3/uL (4.8-10.8)
[2024-12-17 23:05] LABS: D Dimer High Sensitivity 1773 NG/ML
--- NOTE | 2024-12-17 23:07 | ED_ITS ---
HPI - SOB/Dyspnea General Chief Complaint: Dyspnea Stated Complaint: dizziness/sob Time Seen by Provider: 12/17/24 22:41 Source: patient, family (Granddaughter) and old records reviewed Mode of arrival: ambulatory Limitations: no limitations History of Present Illness ED Provider: Dr. Shayna Logan HPI Narrative: 89-year-old female with history of non oxygen dependent COPD, carotid stenosis, hypertension and TIA, continued tobacco use presenting with shortness of breath, generalized malaise and fatigue ongoing since about 430 this morning. Admits she thought that her COPD was ?acting up? so she has been using her inhaler without any relief all day. Denies chest pain, fever, cough, swelling of the legs, nausea, vomiting, bowel changes, abdominal pain, known sick contacts or travel. Admits that she ?has not felt herself since she had that bowel problem?. Reportedly had a bowel obstruction in July of this year and has been struggling since. Admits that she lost about 7 lb since the last time she was weighed. She is down to 77 lb today. Related Data Home Medications ?Medication ?Instructions ?Recorded ?Confirmed cholecalciferol (vitamin D3) 50 50 mcg PO DAILY 08/08/24 mcg (2,000 unit) capsule acetaminophen 325 mg tablet 650 mg PO Q6H PRN Sinus Sy mptoms 12/24/20 08/08/24 loratadine 10 mg tablet 10 mg PO DAILY PRN allergies 07/22/24 08/08/24 Previous Rx's ?Medication ?Instructions ?Recorded docusate sodium 100 mg capsule 100 mg PO BID PRN const ipation #30 07/27/24 (Colace) caps lisinopril 10 mg tablet 10 mg PO DAILY #90 tabs 07/10 09/30 rosuvastatin 5 mg tablet 5 mg PO DAILY #30 tabs 10/24 umeclidinium 62.5 mcg-vilanterol 1 ea PO DAILY #60 ea 11/24/24 25 mcg/actuation powdr for inhalation (Anoro Ellipta) Allergies Allergy/AdvReac Type Severity Reaction Status Date / Time codeine (Codeine) Allergy Mild NAUSEA AND Verified 12/17/24 22:26 VOMITING azithromycin (From ZITHROMAX AdvReac Intermediate N/V/D, Verified 12/17/24 22:26 Z-EWA) severe GI upset Review of Systems 2 Review of Systems: Yes all other systems are reviewed and are negative (As per HPI) [facility] Past Medical History Attestation statement: The following information was validated with the patient. 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 Mother No problems noted. Sister No problems noted. Son No problems noted. Son No problems noted. Son No problems noted. Son No problems noted. Other Substance use disorder Social History Social History Household Members: Significant Other Housing: House Are you a primary critical care nurse specialist to a significant other at home: Yes Do you presently have visiting nurse or other home services: No Alcohol intake: never Patient Tobacco Use Status: Current everyday Tobacco user Tobacco use type: Cigarette Cigarette Packs Per Day: 0 Cigarettes Per Day: 5 Years Smoked: 70 e-Cigarette/Vaping Use: Never Used Second Hand Smoke Exposure: No Advance Directives: No Advance Directives Information Provided: Yes service: No Current occupational status: retired Current occupation: Right hand dominate Cognitive needs: No Hearing needs: No Vision needs: Yes Physical Exam 2 Vital Signs: Vital Signs: Last Vital Signs Temp 98.3 F 12/17/24 22:18 Pulse 134 H 12/18/24 00:54 Resp 22 H 12/18/24 00:54 BP 128/74 12/18/24 00:54 Pulse Ox 98 12/18/24 00:54 O2 Del Method Room Air 07/13/25 00:54 BMI result Body Mass Index 16.4 GENERAL: Anxious, cachectic. SKIN: Normal skin color for ethnicity, warm, dry, intact, no rashes noted. HEENT: Normocephalic, atraumatic, no stridor, posterior oropharynx nonerythematous, dentition intact, EOMI. NECK: Soft, supple, full ROM, midline structures nontender, no step-offs, no deformities, no lymphadenopathy. CHEST: Heart irregularly irregular tachycardia, no murmurs, symmetric chest rise and fall, no crepitus. PULMONARY: Clear to auscultation bilaterally, slight tachypnea, no wheezes/rhales/rhonchi. ABDOMINAL: Soft, nondistended, nontender, positive bowel sounds in all quadrants. : Deferred. MUSCULOSKELETAL: Normal tone, full range of motion, no deformities, no peripheral edema. NEURO: Alert and oriented x3, CN II through XII intact, equal strength and sensation bilateral upper and lower extremities, no focal neurologic deficits. PSYCHIATRIC: Anxious affect, fluid speech, good eye contact and appropriate demeanor. Course Reevaluation(s) Reevaluation #1: Heart rate noted to be elevated into the 180s, AFib with RVR. Patient evaluated at the bedside. She does not appear to be in much distress. She is having no chest pain or actual shortness of breath on my exam. Oxygen level is 98% on room air. Heart rate varies anywhere between 140s to 180s. Initially attempted 10 mg of Cardizem with only transient improvement in heart rate. Blood pressure remained elevated. Then attempted to 2.5 mg of Lopressor IV which seemed to work better. She came down to 110's but very easily jumps back up into the 130s to 150s. Time: 22:40 Reevaluation #2: Patient with continued tachycardia despite fluid resuscitation and Cardizem and metoprolol boluses. We will start a Cardizem drip and admit to hospitalist for further care and evaluation. Attempted to had a conversation about code status and patient is extremely anxious. She will be a full code. Time: 00:39 Reevaluation #3: Patient with continued tachycardia up into the 120s despite max amount of Cardizem drip. We will give a bolus of Lopressor again and see how she does. She does dip down into the 80s occasionally. Case discussed with hospitalist who agrees with admission. We will add on a CTA to evaluate for PE and for any lung mass given her weight loss and extensive history of tobacco use. Blood pressure remained stable. Patient resting comfortably. Admitted in guarded condition. Time: 01:31 Medications Administered Generic Name Dose Route Start Last Admin Trade Name Freq PRN Reason Stop Dose Admin Diltiazem HCl 125 mg/ Sodium 125 mls @ 0 mls/hr 12/17/24 23:45 12/18/24 00:35 Chloride IVCONT 15 mg/hr .Q0M DARSHANA 15 mls/hr Protocol Titration Per Protocol Discontinued Medications Generic Name Dose Route Start Last Admin Trade Name Freq PRN Reason Stop Dose Admin Diltiazem HCl 10 mg 12/18/24 00:25 12/17/24 22:45 Diltiazem Hcl 50 Mg/10 Ml Vial IVPUSH 12/18/24 00:26 10 mg ONCE ONE Administration Metoprolol Tartrate 2.5 mg 12/18/24 00:24 12/18/24 00:32 Metoprolol Tartrate 5 Mg/5 Ml Vial IVPUSH 12/18/24 00:25 2.5 mg ONCE ONE Administration Protocol Medical Decision Making Medical Decision Making [facility] Narrative: Patient presents today with chief complaint of shortness of breath. Differential diagnosis includes, but is not limited to, upper respiratory infection, pneumonia, COPD exacerbation, asthma exacerbation, CHF, pneumothorax, pleural effusion, pulmonary embolism, ACS, arrhythmia, anemia, among many others. Broad- based work-up will be initiated to evaluate for etiology of patient's symptoms. Differential Diagnosis Differential Diagnoses: The differential diagnosis associated with the presentation includes (As above) Admission/Observation Consideration of admission/observation: Escalation of care including admission/observation considered Consult Healthcare Provider Management of the patient was discussed with: Hospitalist Lab Data [facility] Lab Attestation statement: I reviewed the patient's lab results. D-dimer significantly elevated, even age adjusted would be notably high. Troponin of 13.2 down from previous in 2020. 12/17/24 22:49 12/17/24 22:49 Labs: Lab Results 12/17/24 12/17/24 12/17/24 Range/Units 22:49 22:50 23:45 WBC 7.7 (4.8-10.8) X10*3/uL RBC 4.35 (4.20-5.50) X10*6/uL Hgb 14.1 (12.0-16.0) g/dl Hct 40.6 (37.0-47.0) % MCV 93.3 (80.0-98.0) fL MCH 32.4 (27.0-33.0) pg MCHC 34.7 (31.0-35.0) g/dl RDW 12.7 (11.0-16.0) % Plt Count 124 L (160-400) X10*3/uL MPV 11.1 (9.4-12.3) fL Immature Gran % (Auto) 0.4 (0.0-0.4) % Neut % (Auto) 64.0 (45-73) % Lymph % (Auto) 27.8 (20-40) % Ulster % (Auto) 6.4 (2-11) % Eos % (Auto) 0.9 (0-4) % Baso % (Auto) 0.5 (0-2) % Lymph # (Auto) 2.1 (1.2-4.9) X10*3/uL [place] # (Auto) 0.5 (0.1-1.2) X10*3/uL Eos # (Auto) 0.1 (0.0-0.4) X10*3/uL Baso # (Auto) 0.0 (0.0-0.2) X10*3/uL Abs Immat Gran (auto) 0.03 (0.00-0.03) X10*3/uL Absolute Neuts (auto) 4.9 (2.0-8.3) x10*3/uL Absolute Nucleated RBC 0.000 (0.0-0.012) X10*3/uL Nucleated RBC % (auto) 0.0 (0.0-0.2) /100WBC PT 10.7 L (10.9-12.4) SEC INR 0.9 (0.9-1.1) D-Dimer High Sensitivty 1773 NG/ML Sodium 136 (135-145) mmol/L Potassium 4.3 (3.3-5.1) mmol/L Chloride 107 (96-108) mmol/L Carbon Dioxide 22 (22-29) mmol/L Anion Gap 11 L (12-20) BUN 14 (9-16) mg/dL Creatinine 0.92 (0.5-1.4) mg/dL Estim Creat Clear Calc 23.8 Estimated GFR 58 Random Glucose 97 (60-115) mg/dL Calcium 10.0 D (8.4-10.2) mg/dL Magnesium 2.2 (1.6-2.6) mg/dL Total Bilirubin 0.4 (0.0-1.0) mg/dL AST 28 (5-31) U/L ALT 11 (0-31) U/L Alkaline Phosphatase 104 (39-117) U/L Troponin I High Sens 13.2 (<3.5-17.0) ng/L B-Natriuretic Peptide 261 H (<100) pg/mL Total Protein 6.6 (6.5-8.0) g/dL Albumin 3.9 (3.5-5.0) g/dL Lipase 41 (8-78) U/L Influenza Type A (PCR) NEGATIVE (Negative) Influenza Type B (PCR) NEGATIVE (Negative) RSV RNA Qual (PCR) NEGATIVE (Negative) SARS-CoV-2 RNA (RT-PCR) NEGATIVE (Negative) Independent Interpretation I performed an independent interpretation of an: EKG and Plain X-Ray Interpretation: My independent interpretation of the ECG reveals atrial fibrillation with RVR rate of 153, leftward axis, right bundle-branch block, left anterior fascicular block, rate related ST changes, rhythm is changed from previous on 07/22/2024 where she was in a sinus rhythm though the bundle branch blocks are similar to previous My independent interpretation of the chest x-ray reveals no consolidations, pulmonary edema, pleural effusion, pneumothorax, obvious bony abnormalities, lungs are hyperinflated, consistent with COPD history. Radiology Impression Discussion of test interpretation with radiology: I have reviewed the radiologist's reading. Radiologist Impression: 1 view chest x-ray Comparison: CR/SR - XR CHEST 2V - 05/28/23 13:59 EST Findings: The lungs are clear. Normal size heart. Osteopenia. No acute fracture. IMPRESSION: No consolidation. This document has been electronically signed by: Bari Arellano MD on 12/17/2024 23:47:35 Independent Historian Clinical information obtained from an independent historian. History obtained from or confirmed by: Other (Daughter, granddaughter) External Record Review External record reviewed: Inpatient record and Outpatient record Chronic Conditions Patient?s care impacted by: Hypertension and Other (COPD) Discharge Plan Discharge Clinical Impression: New onset atrial fibrillation, Atrial fibrillation with rapid ventricular response, Adult failure to thrive Patient Disposition: Admitted As Inpatient Print Language: Kiswahili
[2024-12-17 23:16] VITALS: BP 122/64; PULSE 108; RESP 20; O2SAT 98
[2024-12-17 23:17] LABS: Alanine Aminotransferase 11 U/L (0-31); Albumin Level 3.9 g/dL (3.5-5.0); Alkaline Phosphatase 104 U/L (39-117); Anion Gap 11 (12-20); Aspartate Amino Transferase 28 U/L (5-31); Blood Urea Nitrogen 14 mg/dL (9-16); Calcium 10.0 mg/dL (8.4-10.2); Carbon Dioxide 22 mmol/L (22-29); Chloride 107 mmol/L (96-108); Creatinine Clr Calc Pharmacy 23.8; Estimated Glomerular Filt Rate 58; Potassium 4.3 mmol/L (3.3-5.1); Sodium 136 mmol/L (135-145); Total Protein 6.6 g/dL (6.5-8.0)
[2024-12-17 23:17] LABS: Troponin-I High Sensitivity 13.2 ng/L (<3.5-17.0)
[2024-12-17 23:23] LABS: Lipase 41 U/L (8-78); Magnesium 2.2 mg/dL (1.6-2.6)
[2024-12-17 23:37] LABS: Resp Syncy Virus RNA Qual PCR NEGATIVE (Negative); SARS COV2 PCR INHOUSE NEGATIVE (Negative)
[2024-12-17 23:39] LABS: B Type Natriuretic Peptide 261 pg/mL (<100)
[2024-12-17 23:47] VITALS: BP 139/86; PULSE 131; RESP 20; O2SAT 98
[2024-12-17 23:55] LABS: INTERNATIONAL NORM RATIO 0.9 (0.9-1.1); Prothrombin Time 10.7 SEC (10.9-12.4)
[2024-12-18] VITALS (13 sets, daily range): BP systolic 96–153; BP diastolic 48–82; PULSE 53–134; RESP 14–22; TEMP 36.6–37.1; O2SAT 92–99; BMI 16.4
--- OUTSIDE RECORDS SUMMARY | 2024-12-18 00:21 | XMS_ITS | Continuity of Care Document ---
Author Organization [facility] [address] [place] [address] Phone [phone] Social History Type Date Description Comments Sex Female Sex Unknown Medical Devices Description No Information Available Encounters Description No Information Available Assessments Description No Information Available Plan of Treatment No Information Available Functional Status Description No Information Available Mental Status Description No Information Available Referrals Description No Information Available
--- OUTSIDE RECORDS SUMMARY | 2024-12-18 00:21 | XMS_ITS | Patient Health Record ---
Author Organization [facility] [place] Segovia Address [address] [place] [address] Care Team Providers Care Coil Builder Name Role Phone Nate HOPPER, Crissy Roblero Primary Care Provider Un available Tod, Tank Unavailable [phone] Allergies Allergen (clinical drug ingredient) Drug/Non Drug Allergy documented on EMR Reaction Allergy Type Onset Date Status codeine Codeine vomiting Drug Allergy Active Reason For Referral No Information Medications Medication SIG (Take, Route, Fr equency, Duration) Notes Start Date End Date Status Ammonium Lactate 12 % 1 application to a ffected area Externally to feet Twice a day; Duration: 30 days Active Lisinopril 10 MG 1 tablet Orally Once a day; Duration: 30 day(s) Active Immunizations Vaccine Route Administration [...] W/U Status Risk Notes Problem Tinea unguium (444254860) Tinea unguium (B35.1) Active confirmed Plan Of Treatment Pending Test Test Name Order Date [id number] NAIL, 6 OR MORE 01/16/2021 [id number] NAIL, 6 OR MORE 04/01/2021 [id number] Plate 01/16/2021 Insurance Providers Payer Name Payer Address Payer Phone Subscriber Number Group Number Insured Name Patient Relationship to Insured Coverage Start Date Coverage End Date [id number] [address] [place] [address] [id number] Alicenovember Self - patient is the insured Medical (General) History Medical History History ICD Code Measles High blood pressure Sinus conditions Transfusions Surgical History Surgery Date(Month/Year) Hospitalization History Reason Date(Month/Year) [facility] 12/2020
[2024-12-18] MEDS: iohexoL 350 MG/ML 100 ML INFUS..BTL 75 ML IV (02:19)
[2024-12-18] MEDS: Albumin Human 25 % 100 ML 133.33 ML IV (04:51)
--- NOTE | 2024-12-18 05:13 | PC.NURSE ---
pt 89 y/o female from home brought in by her granddaughter with complaint of SOB, weakness, and fatigue since 0430 this afternoon (12/17/24). Pt states she tried using her inhaler earlier but had no relief. Pt denies chest pain, fever, cough, n/v/d, abd pain, or any other sx of concern. Pt reports she had bowel surgery in July and since has not felt well. In triage pt was noted to have a HR of 140-160s. EKG revealed afib rvr, which is new for the pt. Pt is a&ox4 able to make her needs known and able to ambulate with steady gait. Pt given 10mg of IV diltiazem and remained symptomatic. Then 2.5mg of lopressor administered pt remained symptomatic. Pt placed on cardizem drip starting at 10mg/hr and titrated up to 15mg after 15 min where she was maxed. Pts HR noted to go down tot he 80s but would spike back up to 120s-130s. Another 2.5mg of lopressor given. Caridzem drip paused per MD at 0222, when pts HR was noted to remain 70-90s and BP 107/54. Pt has daughter and granddaughter at bedside. Pt has 20G IV in RAC and LFA. Labs: BNP-261 Chest CTA: IMPRESSION: 1. No acute pulmonary embolus. 2. 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 Recommend nonemergent follow-up CT angiography with systemic arterial timing for further characterization. 3. Additional findings as above. Chest Xray: IMPRESSION: No consolidation.
--- NOTE | 2024-12-18 05:20 | P.HPHOSP_ITS ---
History of Present Illness Date of Service: 12/18/24 Chief Complaint: Dyspnea and palpitations This is a 89-year-old female with pertinent history of TIA, COPD not on home oxygen, hypertension, mixed hyperlipidemia, tobacco use disorder who presents to the emergency department for evaluation of dyspnea and palpitations. Patient states her symptoms started on the day of presentation. She was having dyspnea, palpitations and fatigue while she tried to get up from her bed. Patient initially thought it was her COPD and tried to use her home inhaler without any relief. She denies associated wheezing or cough. No chest pain, swelling of legs, orthopnea, PND, nausea, vomiting, abdominal pain, changes in urinary or bowel habits. In the emergency department, patient was found to be in AFib with RVR. She got multiple doses of IV diltiazem and IV Lopressor and subsequently initiated on IV diltiazem drip. Review of Systems 2 Constitutional: Constitutional: Reports fatigue, Reports malaise, Reports weakness and Reports weight loss Cardiovascular: Cardiovascular: Reports palpitations and Reports dyspnea Respiratory: Respiratory: Reports dyspnea Gastrointestinal: Gastrointestinal: Reports no additional gastrointestinal complaints Genitourinary: Genitourinary: Reports no additional female genitourinary complaints Neurologic: Reports weakness Endocrine: Endocrine: Reports fatigue and Reports palpitations [facility] Medical History Generalized headaches Grief Abnormal EKG COPD (chronic obstructive pulmonary disease) Stenosis of left carotid artery 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 Mother No problems noted. Sister No problems noted. Son No problems noted. Son No problems noted. Son No problems noted. Son No problems noted. Other Substance use disorder Surgical History Status post exploratory laparotomy Hx of exploratory laparotomy (07/22/24) H/O: hysterectomy History of colonoscopy History of cataract surgery History of appendectomy Social History Household Members: Significant Other Housing: House Are you a primary ambulatory care nurse to a significant other at home: Yes Do you presently have visiting nurse or other home services: No Alcohol intake: never Patient Tobacco Use Status: Current everyday Tobacco user Tobacco use type: Cigarette Cigarette Packs Per Day: 0 Cigarettes Per Day: 5 Years Smoked: 70 e-Cigarette/Vaping Use: Never Used Second Hand Smoke Exposure: No Advance Directives: No Advance Directives Information Provided: Yes service: No Current occupational status: retired Current occupation: Right hand dominate Cognitive needs: No Hearing needs: No Vision needs: Yes Meds Allergies Allergy/AdvReac Type Severity Reaction Status Date / Time codeine (Codeine) Allergy Mild NAUSEA AND Verified 12/17/24 22:26 VOMITING azithromycin (From ZITHROMAX AdvReac Intermediate N/V/D, Verified 12/17/24 22:26 Z-EWA) severe GI upset Active Medications: Current Medications Diltiazem HCl 125 mg/ Sodium (Chloride) 125 mls @ 0 mls/hr IVCONT .Q0M DARSHANA; Protocol Last Titration: 12/18/24 02:22 Dose: 0 mg/hr, 0 mls/hr Albumin Human (Kedbumin 25 %) 100 mls @ 133.333 mls/hr IV Q1H DARSHANA Stop: 12/18/24 06:29 Last Admin: 12/18/24 04:51 Dose: 133.33 mls/hr Home Medications ?Medication ?Instructions ?Recorded ?Confirmed ?Last Taken ?Type cholecalciferol (vitamin D3) 50 50 mcg PO DAILY 08/08/24 07/21/24 History mcg (2,000 unit) capsule acetaminophen 325 mg tablet 650 mg PO Q6H PRN Sinus Sy mptoms 12/24/20 08/08/24 07/22/24 History loratadine 10 mg tablet 10 mg PO DAILY PRN allergies 07/22/24 08/08/24 Unknown History Physical Exam 2 Vital Signs and Narrative: Vital Signs: Last Vital Signs Temp 98.3 F 12/17/24 22:18 Pulse 66 12/18/24 04:55 Resp 16 12/18/24 04:55 BP 97/55 L 12/18/24 04:55 Pulse Ox 95 12/18/24 04:55 O2 Del Method Room Air 12/18/24 04:55 BMI result Body Mass Index 16.4 Elderly thin built female lying in bed in no distress Neck supple, no JVD Irregularly irregular, S1-S2 heard Regular breath sounds bilaterally, no wheezing or crackles appreciated Abdomen soft nontender, no guarding, no rigidity Patient is awake, alert and oriented x3 ; no focal motor deficit Psych: Normal mood No pedal edema Results Labs 12/17/24 22:49 12/17/24 22:49 Labs: Laboratory Results - last 24 hr 12/17/24 12/17/24 12/17/24 22:49 22:50 23:45 MCV 93.3 MCH 32.4 MCHC 34.7 RDW 12.7 Plt Count 124 L MPV 11.1 Immature Gran % (Auto) 0.4 Neut % (Auto) 64.0 Lymph % (Auto) 27.8 [place] % (Auto) 6.4 Eos % (Auto) 0.9 Baso % (Auto) 0.5 Lymph # (Auto) 2.1 [place] # (Auto) 0.5 Eos # (Auto) 0.1 Baso # (Auto) 0.0 Abs Immat Gran (auto) 0.03 Absolute Neuts (auto) 4.9 Absolute Nucleated RBC 0.000 Nucleated RBC % (auto) 0.0 PT 10.7 L INR 0.9 D-Dimer High Sensitivty 1773 Anion Gap 11 L Estim Creat Clear Calc 23.8 Estimated GFR 58 Random Glucose 97 Calcium 10.0 D Magnesium 2.2 Total Bilirubin 0.4 AST 28 ALT 11 Alkaline Phosphatase 104 B-Natriuretic Peptide 261 H Total Protein 6.6 Albumin 3.9 Lipase 41 Influenza Type A (PCR) NEGATIVE Influenza Type B (PCR) NEGATIVE RSV RNA Qual (PCR) NEGATIVE SARS-CoV-2 RNA (RT-PCR) NEGATIVE Assessment and Plan (1) New onset atrial fibrillation: Status: Acute (2) Atrial fibrillation with rapid ventricular response: Status: Acute Plan This is a 89-year-old female with pertinent history of TIA, COPD not on home oxygen, hypertension, mixed hyperlipidemia, tobacco use disorder who presents to the emergency department for evaluation of dyspnea and palpitations. #. AFib with RVR, new onset and symptomatic: Will admit patient with cardiac monitoring. Initiated IV diltiazem drip in the ER. Chads Vasc score 6. Initiating Eliquis (adjusted for age and weight). Obtaining TSH and echo. Consulted Cardiology #. Hypertension: Continue home antihypertensives #. COPD not on home oxygen: No exacerbation during admission. Continue home inhalers #. Mixed hyperlipidemia: On statin #. Underweight: Patient states she has been losing weight since her exploratory laparotomy in July due to small bowel volvulus. Will add ensure to diet and consult nutrition. Med rec pending DVT prophylaxis: Eliquis Full code. Discussed with patient and granddaughter at bedside Admit as inpatient and will require two night minimum hospital stay for close monitoring of heart rate (as above), which is not possible in a lesser acute setting. Specialist consult pending Quality Stroke Does the patient have a stroke diagnosis?: No VTE Prior VTE?: No VTE Risk Level:: Medical - moderate - high VTE Device Contraindication: Treatment Not Indicated VTE Drug Contraindication: N/A - Med Ordered
--- NOTE | 2024-12-18 07:52 | PC.NURSE ---
patient a&ox3, monitoring manager intact-sb on monitor with pvcs, rr equal/non labored, lungs diminished throughout, pt is oob with assist to commode but at times asks to use bedpan, daughter at bedside, call arnett within reach, plan of care ongoing
[2024-12-18] MEDS: 0.9 % Sodium Chloride Flush 3 ML SYRINGE IVFLUSH ×2 (08:09→17:13)
--- NOTE | 2024-12-18 09:00 | MHC.CM.PN ---
Patient lives with her Significant Other and home/resume [facility] is the goal. CM has initiated and will follow for dc planning. Patient has no home O2 and her PCP is Dr.Annabel Sullivan. Patient will self arrange transport to home at time of dc.
--- NOTE | 2024-12-18 10:09 | PHA.MEDREC ---
Addendum entered by Dee Luis RPh 12/18/24 11:31: REVIEWED BY [facility] Original Note: Pharmacy Consult ? Medication Reconciliation Pharmacy has completed the medication reconciliation. Spoke with patient to confirm. She is not taking baby aspirin or docusate. She last had her medications yesterday.
--- NOTE | 2024-12-18 10:16 | PC.NURSE ---
pt medicated per order
--- NOTE | 2024-12-18 10:27 | PM.EVENT ---
Event Note Date of Service: 12/18/24 Event Note: seen and evaluated rate better controlled converted back to sinus but keeps having runs of Afib Start PO Cardizem and DC IV Pending cardiology eval DC Aspirin and keep only on Eliquis for now Pending Echo keep on Tele Time Spent With Patient Time: Total time managing care of this patient today ____ minutes.
--- NOTE | 2024-12-18 12:16 | P.CONCA_ITS ---
History of Present Illness History of Present Illness Date of Service: 12/18/24 Requesting physician: Shana Curry Chief complaint: Palpitations Narrative: [age] year female with background history of hypertension, COPD, peripheral vascular disease, history of transient ischemic attack in the past, tobacco abuse, dyslipidemia and recent early satiety with weight loss. She is presenting with shortness of breath and was noticed to be in AFib with RVR on admission. She has been diagnosed with CHF and is getting diuretics. She is saying that her appetite has not changed much but she fills up quickly. Also has been out of stress recently. She was using significant salt in her diet but more recently she has started cutting back. No bleeding issues in the past. No recent falls. 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 Mother No problems noted. Sister No problems noted. Son No problems noted. Son No problems noted. Son No problems noted. Son No problems noted. Other Substance use disorder Surgical History Surgical History Status post exploratory laparotomy Hx of exploratory laparotomy (07/22/24) H/O: hysterectomy History of colonoscopy History of cataract surgery History of appendectomy Social History Social History Household Members: Significant Other Housing: House Are you a primary career guidance technician to a significant other at home: Yes Do you presently have visiting nurse or other home services: No Alcohol intake: never Patient Tobacco Use Status: Current everyday Tobacco user Tobacco use type: Cigarette Cigarette Packs Per Day: 0 Cigarettes Per Day: 5 Years Smoked: 70 e-Cigarette/Vaping Use: Never Used Second Hand Smoke Exposure: No Advance Directives: No Advance Directives Information Provided: Yes service: No Current occupational status: retired Current occupation: Right hand dominate Cognitive needs: No Hearing needs: No Vision needs: Yes Meds Allergies Allergy/AdvReac Type Severity Reaction Status Date / Time codeine (Codeine) Allergy Mild NAUSEA AND Verified 12/17/24 22:26 VOMITING azithromycin (From ZITHROMAX AdvReac Intermediate N/V/D, Verified 12/17/24 22:26 Z-EWA) severe GI upset Active Medications: Current Medications Acetaminophen (Acetaminophen 325 Mg Tablet) 650 mg PO Q6H PRN PRN Reason: Pain, Mild 1-3,fever,headache Apixaban (Apixaban 2.5 Mg Tablet) 2.5 mg PO BID [facility] Last Admin: 12/18/24 08:08 Dose: 2.5 mg Atorvastatin Calcium (Atorvastatin Calcium 20 Mg Tablet) 20 mg PO DAILY [facility] Calcium Carbonate (Calcium Carbonate 750 Mg Tab.Chew) 750 mg PO Q4H PRN PRN Reason: Heartburn Diltiazem HCl (Diltiazem Hcl 30 Mg Tablet) 30 mg PO QID [facility]; Protocol Last Admin: 12/18/24 10:14 Dose: 30 mg Diltiazem HCl 125 mg/ Sodium (Chloride) 125 mls @ 0 mls/hr IVCONT .Q0M [facility]; Protocol Last Titration: 12/18/24 02:22 Dose: 0 mg/hr, 0 mls/hr Magnesium Hydroxide (Milk Of Magnesia 30 Ml Oral.Susp) 30 ml PO DAILY PRN PRN Reason: Constipation Melatonin (Melatonin 3 Mg Tablet) 6 mg PO BEDTIME PRN PRN Reason: Insomnia Ondansetron HCl (Ondansetron Hcl 4 Mg/2 Ml Vial) 4 mg IVPUSH Q8H PRN PRN Reason: Nausea and Vomiting Psyllium Hydrophilic Mucilloid (Psyllium Seed 3.7 Gm Packet) 3.7 gm PO DAILY [facility] Sodium Chloride (0.9 % Sodium Chloride Flush 3 Ml Syringe) 3 ml IVFLUSH QSHIFT [facility] Last Admin: 12/18/24 08:09 Dose: 3 ml Home Medications ?Medication ?Instructions ?Recorded ?Confirmed ?Last Taken ?Type cholecalciferol (vitamin D3) 50 50 mcg PO DAILY 12/18/24 12/17/24 History mcg (2,000 unit) capsule acetaminophen 325 mg tablet 650 mg PO Q6H PRN Pain 12/18/24 07/22/24 History loratadine 10 mg tablet 10 mg PO DAILY PRN allergies 07/22/24 12/18/24 Unknown History albuterol sulfate 90 mcg/actuation 2 puff inhalation Q 6H PRN wheezing 12/18/24 12/18/24 12/17/24 History aerosol inhaler (Ventolin HFA) psyllium 1 packet PO DAILY 12/18/24 0 12/18/24 12/17/24 History Physical Exam 2 Vital Signs: Vital Signs: Last Vital Signs Temp 98.3 F 12/17/24 22:18 Pulse 70 12/18/24 10:14 Resp 16 12/18/24 05:49 BP 107/59 L 12/18/24 10:14 Pulse Ox 98 12/18/24 05:49 O2 Del Method Room Air 12/18/24 05:49 BMI result Body Mass Index 16.4 GENERAL APPEARANCE: Thin, frail-appearing lady. In no acute distress. NECK: no carotid bruit, mild jugular venous distention. SKIN: no suspicious lesions, warm and dry. HEART: no murmurs, regular rate and rhythm. LUNGS: Crackles at bases. ABDOMEN: soft, nontender. EXTREMITIES: no edema. PERIPHERAL PULSES: equal. NEUROLOGIC: No gross deficits, AAO X 3 Objective Labs and Meds 12/17/24 22:49 12/17/24 22:49 Lab results: Laboratory Results - last 24 hr 12/17/24 12/17/24 12/17/24 22:49 22:50 23:45 WBC 7.7 RBC 4.35 Hgb 14.1 Hct 40.6 MCV 93.3 MCH 32.4 MCHC 34.7 RDW 12.7 Plt Count 124 L MPV 11.1 Immature Gran % (Auto) 0.4 Neut % (Auto) 64.0 Lymph % (Auto) 27.8 [place] % (Auto) 6.4 Eos % (Auto) 0.9 Baso % (Auto) 0.5 Lymph # (Auto) 2.1 [place] # (Auto) 0.5 Eos # (Auto) 0.1 Baso # (Auto) 0.0 Abs Immat Gran (auto) 0.03 Absolute Neuts (auto) 4.9 Absolute Nucleated RBC 0.000 Nucleated RBC % (auto) 0.0 PT 10.7 L INR 0.9 D-Dimer High Sensitivty 1773 Sodium 136 Potassium 4.3 Chloride 107 Carbon Dioxide 22 Anion Gap 11 L BUN 14 Creatinine 0.92 Estim Creat Clear Calc 23.8 Estimated GFR 58 Random Glucose 97 Calcium 10.0 D Magnesium 2.2 Total Bilirubin 0.4 AST 28 ALT 11 Alkaline Phosphatase 104 Troponin I High Sens 13.2 B-Natriuretic Peptide 261 H Total Protein 6.6 Albumin 3.9 Lipase 41 Influenza Type A (PCR) NEGATIVE Influenza Type B (PCR) NEGATIVE RSV RNA Qual (PCR) NEGATIVE SARS-CoV-2 RNA (RT-PCR) NEGATIVE Assessment and Plan (1) HTN (hypertension): Qualifiers: Hypertension type: primary hypertension Qualified Code(s): I10 - Essential (primary) hypertension Status: Acute (2) New onset atrial fibrillation: Status: Acute (3) Acute CHF: Status: Acute Plan Pleasant 89 year female presenting with shortness of breath and AFib with RVR. She has reverted back to sinus rhythm currently but has significant premature atrial complexes and I think there is possibility she will go back into atrial fibrillation. She also reported that her blood pressure was significantly elevated at home but here her blood pressure has been okay. In any case she appears to be in congestive heart failure. Agree with IV diuretics currently. Start her on amiodarone 400 mg twice a day for 7 days and then 200 mg daily. Low-dose Eliquis 2.5 mg twice a day. Echocardiography tomorrow. She should have workup for early satiety and weight loss. Thank you for allowing me to participate in the care of your patient. Please feel free to contact me if you have any questions. Procedures Date of Service Date of Service: 12/18/24
[2024-12-19] VITALS (7 sets, daily range): BP systolic 134–182; BP diastolic 64–90; PULSE 59–73; RESP 18–20; TEMP 36.1–37.5; O2SAT 92–100; BMI 16.4
[2024-12-19] MEDS: 0.9 % Sodium Chloride Flush 3 ML SYRINGE IVFLUSH ×3 (00:39→21:38)
--- NOTE | 2024-12-19 04:00 | PC.NURSE ---
CARE ASSUMED 7PM..AWAKE..ALERT..ORIENTED X3 RESPIRATIONS EASY ON ROOM AIR..OOB TO BR STEADY GAIT TO VOID...NSR BBB...BP TRENDING UPWARD...03:30 BP = 179/85..ASYMPTOMATIC..CONFIRMS SHE TAKES LISINOPRIL 10MG PO DAILY..LAST DOSE TAKEN AT HOME THURSDAY 7/12 AM...DR AGUILAR UPDATED..LISINOPRIL REORDERED AND GIVEN PER ...RESTFUL/ASYMPTOMATIC
--- NOTE | 2024-12-19 07:00 | CA_ITS ---
Transthoracic Echocardiogram Patient (Last, First, Middle): FerNovember, Gender: Female Date of : 1935 Age: 89 Procedure Date: 12/19/2024 Procedure Type: Transthoracic Echocardiogram Location: [facility] [place] Height: 147.32 cm Weight: 35.38 kg BSA: 1.22 m2 Heart Rate: bpm BP: 178 / 85 mmHg Charging Car Operator: SB Referring MD: Dimple Dickson MD Symptoms: afib Study Quality: Adequate ECG Rhythm: Sinus Conclusions: - The left ventricular systolic function is normal. The calculated ejection fraction is 63% by biplane method. - Evidence suggests grade II (moderate) diastolic dysfunction. - No obvious valvular pathology seen on this study. Findings Left Ventricle Normal left ventricular cavity size. There is normal left ventricular wall thickness. The left ventricular systolic function is normal. The calculated ejection fraction is 63% by biplane method. There is no evidence of regional wall motion abnormalities. Evidence suggests grade II (moderate) diastolic dysfunction. There is mild septal and mild basal asymmetric hypertrophy. Right Ventricle Normal right ventricular cavity size and systolic function. Atria Both atria are normal in size. Aortic Valve There is a normal trileaflet aortic valve. There is no aortic valve stenosis. Trace to mild aortic regurgitation. Mitral Valve There is mild mitral annular calcification. There is trace mitral valve regurgitation. There is no mitral valve stenosis. Pulmonic Valve There is mild pulmonic valve regurgitation. Tricuspid Valve Normal tricuspid valve structure. There is mild tricuspid valve regurgitation. Mild pulmonary hypertension is present. Great Vessels The asc aorta is normal in size. Venous The inferior vena cava is normal in size and collapses less than 50% with inspiration. Pericardium/Pleural There is no evidence of pericardial effusion. Prior Study Comparison No prior study available for comparison. Recommendations, Care & Conclusions No obvious valvular pathology seen on this study. Measurements 2D Linear Measurements IVSd: 0.65 0.6-0.9/0.6-1.0 cm LVIDd: 4.10 3.9-5.3/4.2-5.9 cm LVIDd Index: 3.36 2.4-3.2/2.2-3.1 cm/m2 LVIDs: 2.36 2.0-3.6 cm LVPWd: 0.60 0.7-1.1 cm Ao Root: 3.20 2.1-3.5 cm LA Diam: 3.50 2.7-3.8/3.0-4.0 cm LAIDs Index: 2.87 1.5-2.3 cm/m2 LV Mass: 87.76 67-162/88-224 g LV Mass Index: 71.93 43-95/49-115 g/m2 LVOT Diam: 1.90 3.0+(-)1.3 cm 2D Systolic Function EF 4C: 66.80 >55% EF 2C: 57.60 >55% EF BiP: 63.40 >55% Mitral Valve MV Pk E: 1.02 MV PK A: 0.56 MV Decel Time: 212.00 E/A: 1.80 E'Lateral: 7.94 E'Medial: 4.57 E/E' Med: 22.30 E/E' Lat: 12.80 PHT: 62.00 MVA PHT: 3.55 Decel [place]: 4.81 Aortic Valve AoV Pk Jeanmarie: 1.25 AoV Mn Jeanmarie: 0.88 AoV VTI: 0.27 AoV Pk Grad: 6.00 Aov Mn Grad: 4.00 AIYANA Cont.VTI: 2.17 AI Pk Jeanmarie: 4.03 AI VTI: 2.01 AI [place]: 2.58 LVOT LVOT Pk Jeanmarie: 1.00 LVOT Mn Jeanmarie: 0.66 LVOT VTI: 0.21 LVOT Pk Grad: 4.00 LVOT Mn Grad: 2.00 LVOT Diam: 1.90 LVOT Area: 2.84 Diastolic Function MV Pk E: 1.02 MV Pk A: 0.56 E/A: 1.80 E'Medial: 4.57 E/E' Med: 22.30 E' Laterial: 7.94 E/E' Lat: 12.80 Right Ventricle TAPSE (mm): 16.00 TVS' Jeanmarie: 11.00 Tricuspid Valve TR Pk Jeanmarie: 2.81 TR Pk Grad: 32.00 RA Press: 8.00 RVSP: 40.00 Great Vessels Aorta Ao Root-2D: 3.20 2.0-3.7 cm Ao Asc: 3.20 2.1-3.4 cm Pulmonary Valve PV Pk Jeanmarie: 0.72 Peak PV Grad: 2.00 UT Pk Jeanmarie: 1.83 Updated in Other Vendor System with Status of Final Paul Xie MD electronically signed on 12/19/2024 11:30:39 AM with status of Final
[2024-12-19 07:05] LABS: Hematocrit 39.0 % (37.0-47.0); Hemoglobin 13.1 g/dl (12.0-16.0); Mean Corpuscular HGB Conc 33.6 g/dl (31.0-35.0); Mean Corpuscular Hemoglobin 32.0 pg (27.0-33.0); Mean Corpuscular Volume 95.4 fL (80.0-98.0); NRBC Abs Auto 0.000 X10*3/uL (0.0-0.012); NRBC Pct Auto 0.0 /100WBC (0.0-0.2); Platelet Count 106 X10*3/uL (160-400); Red Blood Count 4.09 X10*6/uL (4.20-5.50); White Blood Count 6.7 X10*3/uL (4.8-10.8)
[2024-12-19 07:27] LABS: Anion Gap 14 (12-20); Blood Urea Nitrogen 9 mg/dL (9-16); Calcium 9.8 mg/dL (8.4-10.2); Carbon Dioxide 24 mmol/L (22-29); Chloride 108 mmol/L (96-108); Creatinine Clr Calc Pharmacy 24.3; Estimated Glomerular Filt Rate 59; Potassium 4.5 mmol/L (3.3-5.1); Sodium 141 mmol/L (135-145)
[2024-12-19 07:43] LABS: Thyroid Stimulating Hormone 0.99 uIU/mL (0.32-4.0)
[2024-12-19] MEDS: Psyllium seed 3.7 GM PACKET PO (08:06)
--- NOTE | 2024-12-19 10:19 | PM.PNCARD ---
Subjective Subjective Date of Service: 12/19/24 Interval history: Patient states that she is feeling okay. Per sign-out as well as cardiology consultation, presented with atrial fibrillation/RVR and then converted back to sinus rhythm. However, that EKG not in EMR. She has been put on oral amiodarone. Also on Eliquis. Review of Systems Review of Systems Yes all other systems are reviewed and are negative Constitutional: Reports as per HPI and Reports no additional constitutional complaints Eyes: Reports as per HPI and Denies no additional eye complaints Denies system reviewed and no additional complaints, except as documented and Reports as per HPI Cardiovascular: Reports as per HPI, Reports no additional cardiovascular complaints, Denies acrocyanosis, Denies cool extremities, Denies chest pain, Denies leg edema, Denies lightheadedness, Denies palpitations and Reports dyspnea Respiratory: Reports as per HPI, Denies no additional respiratory complaints and Reports dyspnea Gastrointestinal: Reports as per HPI and Denies no additional gastrointestinal complaints Genitourinary: Reports as per HPI Musculoskeletal: Reports no additional musculoskeletal complaints and Reports as per HPI Skin/Breast: Reports system reviewed and no additional complaints, except as docu Reports system reviewed and no additional complaints, except as documented and Reports as per HPI Psychiatric: Reports no additional psychiatric complaints and Reports as per HPI Endocrine: Reports no additional endocrine complaints, Reports as per HPI and Denies palpitations Hematologic/Lymphatic: Reports no additional hematologic/lymphatic complaints and Reports as per HPI Allergic/Immunologic: Reports no additional allergic/immunologic complaints and Reports as per HPI Physical Exam Vital Signs: Last Vital Signs Temp 98.3 F 12/19/24 07:39 Pulse 73 12/19/24 07:39 Resp 20 12/19/24 07:39 BP 151/81 H 12/19/24 07:39 Pulse Ox 98 12/19/24 07:39 O2 Del Method Room Air 12/19/24 07:39 BMI result Body Mass Index 16.4 Const General: comfortable and no acute distress Nutritional Appearance: thin and underweight Orientation/consciousness: patient oriented x3 HEENT Other: Unremarkable Head: Yes normal to inspection Neck Neck: Yes normal visual inspection Chest Chest palpation & inspection: normal inspection of the chest Resp Auscultation: clear to auscultation bilaterally Cardio Palpation: normal PMI Heart sounds: S1 normal heart sound present, S2 normal heart sound present, no gallops, no murmurs and no rubs GI Palpation (GI): Soft to palpation Back/Spine/Pelvis Other: unremarkable Skin General skin exam: no rashes or lesions noted Neuro General: patient oriented x3 Extrem General: Yes normal to inspection Psych Mental Status: mental status grossly normal Objective Labs and Meds 12/19/24 06:25 12/19/24 06:25 Lab results: Laboratory Results - last 24 hr 12/19/24 06:25 WBC 6.7 RBC 4.09 L Hgb 13.1 Hct 39.0 MCV 95.4 MCH 32.0 MCHC 33.6 RDW 12.7 Plt Count 106 L MPV 10.8 Absolute Nucleated RBC 0.000 Nucleated RBC % (auto) 0.0 Sodium 141 Potassium 4.5 Chloride 108 Carbon Dioxide 24 Anion Gap 14 BUN 9 Creatinine 0.90 Estim Creat Clear Calc 24.3 Estimated GFR 59 Random Glucose 86 Calcium 9.8 TSH 0.99 Progress Note: A&P Assessment and plan (1) New onset atrial fibrillation: Status: Acute Plan Newly diagnosed atrial fibrillation of unknown duration. Possibly leading to shortness of breath. She has been put on amiodarone which can be continued for the time being. Per hospitalist notes, it seems that she was tried on oral/AV diltiazem but she continued to have runs of atrial fibrillation and hence started amiodarone. As she is on very low body weight, may just use the lowest dose. Already on anticoagulation as well. Await echocardiogram. Time Spent With Patient Time: Total time managing care of this patient today ____ minutes. Progress Note: Quality Stroke Does the patient have a stroke diagnosis?: No Procedures Date of Service Date of Service: 12/19/24
--- NOTE | 2024-12-19 10:40 | MHC.CM.PN ---
PER MD ROUNDS, PLAN FOR ECHO TODAY AND POTENTIAL DC TOMORROW CURRENT DCP, HOME VIA PRIVATE TRANSPORT CM FOLLOWING FOR CHANGING DC NEEDS
--- NOTE | 2024-12-19 13:06 | MHC.CLN ---
PT IS MODERATELY MALNOURISHED PT WITH 6% NONSIGNIFICANT WT LOSS X6 MONTHS R/T SMALL BOWEL VOLVULUS PER PT AND PT WITH MILDLY DEPLETED SUBCUTANEOUS FAT AND MUSCLE MASS. DIET RX: CARDIAC-APPROPRIATE PT RECEIVING ENSURE TID PROVIDES 1050KCALS, 60G PROTEIN MONITOR PO INTAKE CLOSELY AND ENCOURAGE SUPPLEMENT SEE FULL ASSESSMENT
--- NOTE | 2024-12-19 19:06 | HO.PM.IMPN ---
Subjective Subjective Date of Service: 12/19/24 Interval History: Pt seen and evaluated in her room where she is sitting comfortably in the recliner Reports feels much better than yesterday and has no acute medical complaints at this time No chest pain/pressure. No palpitations Denies SOB or difficulty breathing Review of Systems Review of Systems: Yes all other systems are reviewed and are negative Physical Exam Vital Signs: Vital Signs: Last Vital Signs Temp 99.5 F 12/19/24 19:00 Pulse 61 12/19/24 19:00 Resp 18 12/19/24 19:00 BP 137/64 12/19/24 19:00 Pulse Ox 100 12/19/24 19:00 O2 Del Method Room Air 12/19/24 19:00 O2 Flow Rate 1 12/19/24 15:59 BMI result Body Mass Index 16.4 General: AOx3, no acute distress. Thin, frail-looking Resp: CTA bilaterally CVS: S1, S2, regular GI: +BS, NT, no distention Skin: Warm, dry Neuro: Cranial nerves II-XII grossly intact bilaterally. Motor grossly intact bilaterally Extremities: No edema Psych: Appropriate affect Objective Data Active Medications Acetaminophen (Acetaminophen 325 Mg Tablet) 650 mg PO Q6H PRN PRN Reason: Pain, Mild 1-3,fever,headache Amiodarone HCl (Amiodarone Hcl 200 Mg Tablet) 400 mg PO BID [facility] Stop: 12/25/24 12:34 Last Admin: 12/19/24 08:06 Dose: 400 mg Documented By: JAZMYN Amiodarone HCl (Amiodarone Hcl 200 Mg Tablet) 200 mg PO DAILY [facility] Apixaban (Apixaban 2.5 Mg Tablet) 2.5 mg PO BID [facility] Last Admin: 12/19/24 08:06 Dose: 2.5 mg Documented By: JAZMYN Atorvastatin Calcium (Atorvastatin Calcium 20 Mg Tablet) 20 mg PO DAILY [facility] Last Admin: 12/19/24 08:06 Dose: 20 mg Documented By: JAZMYN Calcium Carbonate (Calcium Carbonate 750 Mg Tab.Chew) 750 mg PO Q4H PRN PRN Reason: Heartburn Lisinopril (Lisinopril 10 Mg Tablet) 10 mg PO DAILY [facility]; Protocol Last Admin: 12/19/24 03:40 Dose: 10 mg Documented By: HO.DAHLAN Magnesium Hydroxide (Milk Of Magnesia 30 Ml Oral.Susp) 30 ml PO DAILY PRN PRN Reason: Constipation Melatonin (Melatonin 3 Mg Tablet) 6 mg PO BEDTIME PRN PRN Reason: Insomnia Ondansetron HCl (Ondansetron Hcl 4 Mg/2 Ml Vial) 4 mg IVPUSH Q8H PRN PRN Reason: Nausea and Vomiting Psyllium Hydrophilic Mucilloid (Psyllium Seed 3.7 Gm Packet) 3.7 gm PO DAILY [facility] Last Admin: 12/19/24 08:06 Dose: 3.7 gm Documented By: JAZMYN Sodium Chloride (0.9 % Sodium Chloride Flush 3 Ml Syringe) 3 ml IVFLUSH QSHIFT [facility] Last Admin: 12/19/24 15:59 Dose: Not Given Documented By: RICARDO Non-Admin Reason: Previously Administered Labs 12/19/24 06:25 12/19/24 06:25 Labs: Laboratory Results - last 24 hr 12/19/24 06:25 MCV 95.4 MCH 32.0 MCHC 33.6 RDW 12.7 Plt Count 106 L MPV 10.8 Absolute Nucleated RBC 0.000 Nucleated RBC % (auto) 0.0 Anion Gap 14 Estim Creat Clear Calc 24.3 Estimated GFR 59 Random Glucose 86 Calcium 9.8 TSH 0.99 Assessment and Plan (1) New onset atrial fibrillation: Status: Acute (2) Acute CHF: Status: Acute Plan This is a 89-year-old female with pertinent history of TIA, COPD not on home oxygen, hypertension, mixed hyperlipidemia, tobacco use disorder who presents to the emergency department for evaluation of dyspnea and palpitations. AFib with RVR, new onset and symptomatic Treated with IV diltiazem drip in the ER Initially treated with p.o. Cardizem, though switched to amiodarone as pt continued to have runs of AFib Started on Eliquis 2.5 mg b.i.d. Initiating Eliquis (adjusted for age and weight) Echocardiogram showed LVEF 63% and evidence of grade 2 diastolic dysfunction Cardiology following Continue monitoring on telemetry Hypertension BP currently well-controlled Continue lisinopril COPD not on home oxygen No exacerbation during admission Continue home inhalers Mixed hyperlipidemia Continue statin Moderate protein calorie malnutrition Patient states she has been losing weight since her exploratory laparotomy in July due to small bowel volvulus Ensure added to diet and consult nutrition. DVT prophylaxis: Eliquis Full code Admit as inpatient and will require two night minimum hospital stay for close monitoring of heart rate (as above), which is not possible in a lesser acute setting. Specialist consult pending Quality Stroke Does the patient have a stroke diagnosis?: No VTE Prior VTE?: No VTE Risk Level:: Medical - moderate - high VTE Device Contraindication: Treatment Not Indicated VTE Drug Contraindication: N/A - Med Ordered
[2024-12-20 01:35] VITALS: BP 93/44
[2024-12-20 02:00] VITALS: BP 139/64; PULSE 74
[2024-12-20 03:18] VITALS: BP 132/62; PULSE 64; RESP 18; TEMP 37.6; O2SAT 98
--- NOTE | 2024-12-20 07:17 | PC.NURSE ---
At 2344 overnight provider notified patients manual bp reading 182/90. Provider order 1x 10mg IV hydralazine, hydralazine given at 0010. Around one hour later patient reporting abd cramping and diarrhea, BP rechecked for 93/44 provider notified 0120 of reaction to IV hydralazine, 1x Benadryl 50mg IV ordered and given with good effect. bp rechecked for 139/64 at 2am.
[2024-12-20 07:47] VITALS: BP 147/65; PULSE 59; RESP 18; TEMP 36.9; O2SAT 98
[2024-12-20] MEDS: 0.9 % Sodium Chloride Flush 3 ML SYRINGE IVFLUSH (09:33)
--- NOTE | 2024-12-20 09:39 | PM.PNCARD ---
Subjective Subjective Date of Service: 12/20/24 Interval history: No further atrial fibrillation. Strip from yesterday obtained and that indeed showed atrial fibrillation with rapid rate at 01:56/Min. However, currently in sinus rhythm. Review of Systems Review of Systems Yes all other systems are reviewed and are negative Constitutional: Reports as per HPI and Reports no additional constitutional complaints Eyes: Reports as per HPI and Denies no additional eye complaints Denies system reviewed and no additional complaints, except as documented and Reports as per HPI Cardiovascular: Reports as per HPI, Reports no additional cardiovascular complaints, Denies acrocyanosis, Denies cool extremities, Denies chest pain, Denies leg edema, Denies lightheadedness, Denies palpitations and Denies dyspnea Respiratory: Reports as per HPI, Denies no additional respiratory complaints and Denies dyspnea Gastrointestinal: Reports as per HPI and Denies no additional gastrointestinal complaints Genitourinary: Reports as per HPI Musculoskeletal: Reports no additional musculoskeletal complaints and Reports as per HPI Skin/Breast: Reports system reviewed and no additional complaints, except as docu Reports system reviewed and no additional complaints, except as documented and Reports as per HPI Psychiatric: Reports no additional psychiatric complaints and Reports as per HPI Endocrine: Reports no additional endocrine complaints, Reports as per HPI and Denies palpitations Hematologic/Lymphatic: Reports no additional hematologic/lymphatic complaints and Reports as per HPI Allergic/Immunologic: Reports no additional allergic/immunologic complaints and Reports as per HPI Physical Exam Vital Signs: Last Vital Signs Temp 98.4 F 12/20/24 07:47 Pulse 59 12/20/24 07:47 Resp 18 12/20/24 07:47 BP 147/65 H 12/20/24 07:47 Pulse Ox 98 12/20/24 07:47 O2 Del Method Room Air 12/20/24 07:47 O2 Flow Rate 1 12/19/24 15:59 BMI result Body Mass Index 16.4 Const General: comfortable and no acute distress Orientation/consciousness: patient oriented x3 HEENT Other: Unremarkable Head: Yes normal to inspection Neck Neck: Yes normal visual inspection Chest Chest palpation & inspection: normal inspection of the chest Resp Auscultation: clear to auscultation bilaterally Cardio Palpation: normal PMI Heart sounds: S1 normal heart sound present, S2 normal heart sound present, no gallops, no murmurs and no rubs GI Palpation (GI): Soft to palpation Back/Spine/Pelvis Other: unremarkable Skin General skin exam: no rashes or lesions noted Neuro General: patient oriented x3 Extrem General: Yes normal to inspection Psych Mental Status: mental status grossly normal Objective Labs and Meds 12/19/24 06:25 12/19/24 06:25 Progress Note: A&P Assessment and plan (1) New onset atrial fibrillation: Status: Acute (2) Uncontrolled hypertension: Status: Acute Plan Echocardiogram with LVEF of 63%. Moderate diastolic dysfunction. Overall, atrial fibrillation with rapid rate-new diagnosis could lead to shortness of breath in setting of baseline COPD. As she is a very low body weight, she may not need a full loading dose. Just use 200 mg b.i.d. for about a week and then do 100 mg daily. Anticoagulation. With regard to hypertension, can go up on lisinopril dosing. Time Spent With Patient Time: Total time managing care of this patient today ____ minutes. Progress Note: Quality Stroke Does the patient have a stroke diagnosis?: No Procedures Date of Service Date of Service: 12/20/24
[2024-12-20 11:34] VITALS: BP 110/56; PULSE 80; RESP 18; TEMP 37.4; O2SAT 91
--- NOTE | 2024-12-20 13:58 | PM.DS ---
DS: Providers Provider Date of Service: 12/20/24 Date of admission: 12/18/24 03:40 Date of discharge: 12/20/24 Primary care physician: Crissy Sullivan MD Consults: 12/18/24 05:18 Consult to Cardiology Routine Consulting Provider[place] [facility] [place] [facility] Reason for consultation: afib, new onset DS: Diagnosis Discharge Diagnosis (1) New onset atrial fibrillation: Status: Acute (2) Uncontrolled hypertension: Status: Acute DS: Summary Hospital Course Hospital Course: From admission HPI: Date of Service: 12/18/24 Chief Complaint: Dyspnea and palpitations This is a 89-year-old female with pertinent history of TIA, COPD not on home oxygen, hypertension, mixed hyperlipidemia, tobacco use disorder who presents to the emergency department for evaluation of dyspnea and palpitations. Patient states her symptoms started on the day of presentation. She was having dyspnea, palpitations and fatigue while she tried to get up from her bed. Patient initially thought it was her COPD and tried to use her home inhaler without any relief. She denies associated wheezing or cough. No chest pain, swelling of legs, orthopnea, PND, nausea, vomiting, abdominal pain, changes in urinary or bowel habits. In the emergency department, patient was found to be in AFib with RVR. She got multiple doses of IV diltiazem and IV Lopressor and subsequently initiated on IV diltiazem drip. Hospital course: Pt was admitted to the hospital for AFib with RVR not responsive to initial ED treatments and requiring IV diltiazem drip. Pt had good response to IV Cardizem, and eventually transitioned to p.o., though this was switched to amiodarone as pt continued to have brief runs of AFib. Pt self converted to normal sinus rhythm and has maintained NSR since yesterday. Pt has also been asymptomatic without chest pain/pressure or palpitations. No SOB or difficulty breathing. Was also started on age and weight adjusted dose of Eliquis 2.5 mg b.i.d. for anticoagulation. Echocardiogram showed LVEF of 63% and evidence of grade 2 diastolic dysfunction. Was seen and evaluated by Cardiology who recommended weight adjusted amiodarone dosing: Loading dose of 200 mg b.i.d. times 10 days with maintenance dose of 100 mg daily after that. Pt should follow up with Cardiology in 1 week's time. For COPD, continue home inhalers For hypertension, continue lisinopril 10 mg daily. Blood pressure was noted to fluctuate with elevated as well as soft pressures. Cardiology suggested increasing lisinopril if hypertension persists. We will continue patient's home dose of lisinopril at this time. Pt should follow up with PCP and Cardiology for continued management and adjustment as necessary. For hyperlipidemia, continue statin. For nicotine dependence, pt was counseled on smoking cessation. Time Attestation Discharge Coordination Time (in mins): 35 Quality: Safe Use of Opioids Does Pt have an Active Cancer Diagnosis on the Problem List?: No Quality: Stroke Does the patient have a stroke diagnosis?: No Physical Exam Vital Signs: Vital Signs: Last Vital Signs Temp 99.3 F 12/20/24 11:34 Pulse 80 12/20/24 11:34 Resp 18 12/20/24 11:34 BP 110/56 L 12/20/24 11:34 Pulse Ox 91 L 12/20/24 11:34 O2 Del Method Room Air 12/20/24 11:34 O2 Flow Rate 1 12/19/24 15:59 BMI result Body Mass Index 16.4 General: AOx3, no acute distress. Thin, frail-looking Resp: CTA bilaterally though diminished CVS: S1, S2, regular GI: +BS, NT, no distention Skin: Warm, dry Neuro: Cranial nerves II-XII grossly intact bilaterally. Motor grossly intact bilaterally Extremities: No edema Psych: Appropriate affect DS: Data Data Completed and Pending Completed studies during hospitalization [Text1]: Procedures Release Small Intestine, Open Approach (07/22/24) Discharge Plan Discharge Anticipated Discharge Date/Time: 12/20/24 13:45 Patient Disposition: Home, Self-Care Discharge Diagnosis: New onset AFib with RVR Referrals: Crissy Sullivan MD [Primary Care Provider, Internal Medicine] - 1 Week Paul Xie MD [Physician, Cardiology] - 1 Week Referral Note: Pt with symptomatic new onset AFib with RVR. Discharge Medications: New Eliquis 2.5 mg tablet 2.5 mg PO BID Qty: 60 0RF Rx Instructions: Take one tablet twice a day for AFib stroke prevention. amiodarone 100 mg tablet 100 mg PO DAILY Qty: 90 0RF Rx Instructions: Take two tablets (200mg total) twice a day for the next 7 days (until 12/27) for a loading dose. Then take one tablet daily after that. Continued lisinopril 10 mg tablet 10 mg PO DAILY Qty: 90 4RF rosuvastatin 5 mg tablet 5 mg PO DAILY Qty: 30 2RF Anoro Ellipta 62.5-25 mcg/actuation blister with device 1 ea PO DAILY Qty: 60 4RF acetaminophen 325 mg Tablet 650 mg PO Q6H PRN (Reason: Pain) loratadine 10 mg Tablet 10 mg PO DAILY PRN (Reason: allergies) psyllium Packet 1 packet PO DAILY Rx Instructions: mix into at least 8 oz of water or juice before administering albuterol sulfate [Ventolin HFA] 90 mcg/actuation HFA aerosol inhaler 2 puff inhalation Q6H PRN (Reason: wheezing) cholecalciferol (vitamin D3) 50 mcg (2,000 unit) capsule 50 mcg PO DAILY Discharge Orders: Discharge Order (Routine); Ordered 12/20/24 Ordered By: Rashad Banuelos Activity on Discharge: As tolerated Stand Alone Forms: Patient Portal Discharge page Print Language: Korean Care Plan Goals: Maintain normal sinus rhythm See below Health Concerns: AFib with RVR Shortness of breath Plan of Treatment: Take Eliquis 2.5mg twice a day for stroke prevention Start amiodarone, which takes an initial loading dose twice a day for one week then a maintenance dose once daily after that Take amiodarone 200mg twice a day for 7 days, then 100mg daily after that Follow up with cardiology in one week Follow up with PCP in one week for routine post-hospitalization follow up Assessment: See discharge summary Discharge Date/Time: 12/20/24 15:22
--- NOTE | 2024-12-20 14:00 | MHC.CM.PN ---
Patient has been medically cleared for dc to home today, self care. CM met with Patient at bedside and addressed IMM with her, providing Patient with the original and a copy has been placed on the chart. Patient's Granddaughter will transport to home.
== END 2024-12-20 15:22 | disposition home or self-care (01) | DRG 309 ==
LOC: HO.ED 12-18 02:12 → HO.EDOVER 12-18 03:42 → HO.IMC 12-18 15:00
PROVIDERS: Admitting Provider Student in an Organized Health Care Education/Training Program; Emergency Provider Emergency Medicine; PCP Internal Medicine; Visit Provider Student in an Organized Health Care Education/Training Program
DX: I48.91 Unspecified atrial fibrillation (principal); E44.0 Moderate protein-calorie malnutrition; Z68.1 Body mass index [BMI] 19.9 or less, adult; J44.9 Chronic obstructive pulmonary disease, unspecified; I11.9 Hypertensive heart disease without heart failure; I73.9 Peripheral vascular disease, unspecified; E78.2 Mixed hyperlipidemia; F17.210 Nicotine dependence, cigarettes, uncomplicated; Z71.6 Tobacco abuse counseling; Z20.822 Contact with and (suspected) exposure to COVID-19; Z79.899 Other long term (current) drug therapy
CPT/HCPCS: 36415; 70450; 71045; 71275; 80048; 80053; 83690; 83735; 83880; 84443; 84484; 85025; 85027; 85379; 85610; 87637; 93306; 99285; J0360; J0616; J1163; J1200; P9047; Q9957; Q9967

== ENCOUNTER → 2024-12-17 22:28 | Outpatient (BNV) | payer OTHER, SELFPAY | PROVIDERS: Emergency Provider Emergency Medicine; PCP Internal Medicine; Visit Provider Radiology Diagnostic Radiology | DX: R06.02 Shortness of breath (principal) | CPT/HCPCS: 71045 ==

== ENCOUNTER → 2024-12-18 01:29 | Outpatient (BNV) | payer OTHER, SELFPAY | PROVIDERS: Admitting Provider Student in an Organized Health Care Education/Training Program; Emergency Provider Emergency Medicine; PCP Internal Medicine; Visit Provider Radiology Diagnostic Radiology | DX: I71.22 Aneurysm of the aortic arch, without rupture (principal); I71.23 Aneurysm of the descending thoracic aorta, without rupture; R53.1 Weakness | CPT/HCPCS: 70450; 71275 ==

== ENCOUNTER 2024-12-18 03:40 | Outpatient (BNV) | payer MEDICARE, MEDICAID, SELFPAY | END 2024-12-19 07:00 | PROVIDERS: Admitting Provider Student in an Organized Health Care Education/Training Program; Emergency Provider Emergency Medicine; PCP Internal Medicine; Visit Provider Internal Medicine | DX: I42.2 Other hypertrophic cardiomyopathy (principal); I27.20 Pulmonary hypertension, unspecified; I48.91 Unspecified atrial fibrillation; I37.1 Nonrheumatic pulmonary valve insufficiency | CPT/HCPCS: 93306 ==

== ENCOUNTER → 2024-12-18 03:40 | Outpatient (BNV) | payer OTHER, SELFPAY | PROVIDERS: Admitting Provider Student in an Organized Health Care Education/Training Program; Emergency Provider Emergency Medicine; PCP Internal Medicine; Visit Provider Student in an Organized Health Care Education/Training Program | DX: I48.91 Unspecified atrial fibrillation (principal); I50.9 Heart failure, unspecified | CPT/HCPCS: 99222; 99233; 99499 ==

== ENCOUNTER → 2024-12-18 03:40 | Outpatient (BNV) | payer OTHER, SELFPAY | PROVIDERS: Admitting Provider Student in an Organized Health Care Education/Training Program; Emergency Provider Emergency Medicine; PCP Internal Medicine; Visit Provider Internal Medicine Cardiovascular Disease | DX: I48.91 Unspecified atrial fibrillation (principal) | CPT/HCPCS: 99233 ==

== ENCOUNTER 2024-12-29 07:53 | Outpatient (REF) | payer MEDICARE, SELFPAY ==
--- OUTSIDE RECORDS SUMMARY | 2024-12-29 07:56 | XMS_ITS | Continuity of Care Document ---
Author Organization [facility] [address] [place] [address] Phone [phone] Social History Type Date Description Comments Sex Female Sex Unknown Medical Devices Description No Information Available Encounters Description No Information Available Assessments Description No Information Available Plan of Treatment No Information Available Functional Status Description No Information Available Mental Status Description No Information Available Referrals Description No Information Available
--- OUTSIDE RECORDS SUMMARY | 2024-12-29 07:56 | XMS_ITS | Patient Health Record ---
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) Active confirmed Plan Of Treatment Pending Test Test Name Order Date [id number] NAIL, 6 OR MORE 01/16/2021 [id number] NAIL, 6 OR MORE 04/01/2021 [id number] 01/16/2021 Insurance Providers Payer Name Payer Address Payer Phone Subscriber Number Group Number Insured Name Patient Relationship to Insured Coverage Start Date Coverage End Date [id number] [address] [place] [address] [id number] [facility] Alicenovember Self - patient is the insured Medical (General) History Medical History History ICD Code Measles High blood pressure Sinus conditions Transfusions Surgical History Surgery Date(Month/Year) Hospitalization History Reason Date(Month/Year) [facility] [place] 12/2020
[2024-12-29 10:55] LABS: Alanine Aminotransferase 9 U/L (0-31); Anion Gap 10 (12-20); Aspartate Amino Transferase 20 U/L (5-31); Blood Urea Nitrogen 14 mg/dL (9-16); Calcium 9.7 mg/dL (8.4-10.2); Carbon Dioxide 26 mmol/L (22-29); Chloride 110 mmol/L (96-108); Cholesterol 145 mg/dL (<200); Estimated Glomerular Filt Rate 50; HDL Cholesterol 66 mg/dL (>40); Potassium 4.7 mmol/L (3.3-5.1); Sodium 141 mmol/L (135-145); Triglycerides 60 mg/dL (<150)
== END 2024-12-29 07:54 | disposition home or self-care (01) ==
LOC: HO.HMGCLDS 07:53
PROVIDERS: PCP Internal Medicine; Visit Provider Internal Medicine
DX: J44.9 Chronic obstructive pulmonary disease, unspecified (principal); I65.22 Occlusion and stenosis of left carotid artery; E78.5 Hyperlipidemia, unspecified; I10 Essential (primary) hypertension; M81.0 Age-related osteoporosis without current pathological fracture; Z78.0 Asymptomatic menopausal state; Z86.73 Personal history of transient ischemic attack (TIA), and cerebral infarction without residual deficits
CPT/HCPCS: 36415; 80048; 80061; 82306; 84450; 84460

== ENCOUNTER 2025-01-05 10:04 | Outpatient (AMB) | payer MEDICARE, SELFPAY ==
--- NOTE | 2025-01-05 10:06 | MHC.PC.OV ---
Vital Signs 01/05/25 10:12 Height 4 ft 10 in Weight 81 lb 8 oz BMI 17.0 BP 116/68 Blood Pressure Location Lt brachial Position Sitting Respiration 18 Pulse 64 Pulse Source Pulse Oximeter Pulse Oximetry (%) 98 Oxygen Delivery Method Room Air Intake Visit Reasons: TCM-congestive hear failure Legal Writing Professor Required: No Accompanied by: Grand Child Allergies codeine (Codeine) Allergy (Mild, Verified 01/05/25 10:12) NAUSEA AND VOMITING azithromycin (From ZITHROMAX Z-EWA) Adverse Reaction (Intermediate, Verified 01/05/25 10:12) N/V/D, severe GI upset Tobacco use date assessed: 01/05/25 Fall risk assessment: No Falls in past year Last assessed Fall Risk: 01/05/25 Dental Screening Dental Screen Date: 01/05/25 Did you have a dental visit in the last 12 months?: Yes Did you have a dental problem in the last 6 months where you did not have access to dental care?: No Was dental information given to patient?: Patient has dentist HPI TCM TCM Information Date of Discharge 12/20/24 Discharged From [facility] Interactive Contact Date (Reference documentation from this date) 12/21/24 HPI Comments History of Present Illness Details Patient is an 89-year-old female here with her grandsam Nguyễn, she has a past medical history of TIA, COPD not on home O2, HTN, HLD and tobacco use disorder who is here for hospital discharge follow-up. She was admitted to [facility] on December 18 and discharged on December 20. She presented to the emergency department on December 18 complaining of dyspnea, fatigue and palpitations which started that day. In the emergency department, she was found to be in AFib with RVR and given multiple doses of eye V diltiazem and IV Lopressor and was started on IV diltiazem drip and admitted to the hospital. While in the hospital, she was transition to p.o. Cardizem and eventually switched to amiodarone by Cardiology because she was having some brief runs of AFib while on the Cardizem. She was also started on 2.5 mg twice daily for anticoagulation. They did not echocardiogram which showed LVEF 63% and evidence of a grade 2 diastolic dysfunction. She converted to normal sinus rhythm, her symptoms resolved and she was discharged. She was told to follow up with Cardiology in 1 week and she does have an appointment on January 13 at [facility] center Cardiology. She was instructed to take the 2.5mg Eliquis twice a day, 200mg amiodarone twice a day for 10 days and then once a day after that. Patient has been taking her medication, including the new medications, as prescribed. She states she has been feeling good since the hospital discharge, she denies any dyspnea or heart palpitations or chest pain. She is tells me she lost a few lb while in the hospital and she is gaining them back. She does say however she feels very deconditioned overall. Is experiencing weakness in the left hand, reduced painter aircraft strength, reduced mobility overall, possible TIA. Experiencing increased stress with her live in person passed on 08/24/24, looking to rebuild her strength. Can walk without a walker now. However she has had a few falls while getting into the bathtub. She does have painter aircraft bars in the bathtub and a shower chair. However she has fallen while going from outside the bathtub to inside the bathtub and shows me that bruises on her legs and arms. As she is now taking a blood thinner, her family is very concerned. She does live with her son but he is unable to help her get into the tub. Is asking for PT to help with her general deconditioning and possibly a REPLANTER to help her bathe safely. [facility] Medical History Generalized headaches Grief Abnormal EKG COPD (chronic obstructive pulmonary disease) Stenosis of left carotid artery greater than 50% Chronic cough Hx of transient ischemic attack (TIA) Spongiotic dermatitis Lichen sclerosus Cerumen impaction Tenosynovitis of both wrists Eczema Tachycardia, paroxysmal History of melena Intertrigo Smoker unmotivated to quit Vertigo Menopause Osteoporosis Dyslipidemia HTN (hypertension) Surgical History Status post exploratory laparotomy Hx of exploratory laparotomy (07/22/24) H/O: hysterectomy History of colonoscopy History of cataract surgery History of appendectomy Family History Father No problems noted. Mother No problems noted. Sister No problems noted. Son No problems noted. Son No problems noted. Son No problems noted. Son No problems noted. Other Substance use disorder Social History Household Members: Children Housing: House Are you a primary critical care nurse practitioner to a significant other at home: Yes Do you presently have visiting nurse or other home services: No Alcohol intake: never Patient Tobacco Use Status: Current everyday Tobacco user Tobacco use type: Cigarette Cigarette Packs Per Day: 0 Cigarettes Per Day: 6 Years Smoked: 70 e-Cigarette/Vaping Use: Currently Using Second Hand Smoke Exposure: No service: No Current occupational status: retired Current occupation: Right hand dominate Cognitive needs: No Hearing needs: No Vision needs: Yes Questionnaire PHQ-9 Over the last 2 weeks, how often have you been bothered by any of the following problems? 1. Little interest or pleasure in doing things: not at all 2. Feeling down, depressed, or hopeless: several days (one day) 3. Trouble falling or staying asleep, or sleeping too much: several days 4. Feeling tired or having little energy: several days 5. Poor appetite or overeating: not at all 6. Feeling bad about yourself - or that you are a failure or have let yourself or your family down: not at all 7. Trouble concentrating on things, such as reading the newspaper or watching television: not at all 8. Moving or speaking so slowly that other people could have noticed. Or the opposite - being so fidgety or restless that you have been moving around a lot more than usual: not at all 9. Thoughts that you would be better off or of hurting yourself in some way: not at all Total score: 3 Depression Screening Interpretation: Negative Depression Screening Done: Yes 22326 - PHQ-9 Billing: Yes Source: Developed by Drs. Ortiz Mike, Yessenia Quintana, Fernando Eller and colleagues, with an educational papito from [employer]. Thrive Questionnaire Date Thrive assessed: 01/05/25 I am a: Patient What is your living situation today?: I choose not to answer this question Within the past 12 months, did the food you bought not last and you didn't have the money to get more?: I choose not to answer this question Within the past 12 months, did you worry whether your food would run out before you got money to buy more?: I choose not to answer this question Do you have trouble paying for medicines?: I choose not to answer this question Do you have trouble getting transportation to medical appointments?: I choose not to answer this question Do you have trouble paying your heating and electricity bill?: I choose not to answer this question Do you have trouble taking care of your child, family member or friend?: I choose not to answer this question Do you have trouble with day-to-day activities such as bathing, preparing meals, shopping, managing finances, etc.?: I choose not to answer this question Are you currently unemployed and looking for a job?: I choose not to answer this question Are you interested in more education?: I choose not to answer this question Currently or been in a relationship where the following occur: No concerns reported THRIVE Score: 0 AUDIT C Alcohol Use Questionnaire (AUDIT-C) 1. How often do you have a drink containing alcohol?: Never 3. How often do you have six or more drinks on one occasion?: Never Total Score: 0 Score Reviewed/Action Taken: Yes KAYLA-7 AMB Questionnaire KAYLA-7 Date KAYLA - 7 assessed: 01/05/25 Feeling nervous, anxious, or on edge: 1 = Several days Not being able to stop or control worryin = Not at all Worrying too much about different things: 1 = Several days Trouble relaxin = Not at all Being so restless that it is hard to sit still: 0 = Not at all Becoming easily annoyed or irritable: 1 = Several days Feeling afraid as if something awful might happen: 0 = Not at all Total KAYLA-7 score (0-4 normal; 5-9 mild; 10-14 moderate; 15-21 severe): 3 Source: Developed by Drs. Ortiz Mike, Yessenia Quintana, Fernando Eller and colleagues, with an educational papito from [employer]. KAYLA-7 Assessment Billing KAYLA-7 Assessment Tool: KAYLA-7 Assessment 04118 Review of Systems Const All systems reviewed & are unremarkable except as noted in HPI and below Physical exam (Primary Care) Tobacco/Smoking Status: Tobacco use Status Tobacco use date assessed 07/29/23 07/15/24 10:56 Patient Tobacco Use Status Current everyday Tobacco 12/20/24 13:51 Tobacco use type Cigarette 12/18/24 16:42 e-Cigarette/Vaping Use Currently Using 12/18/24 16:42 Depression Screening Interpretation: Negative Thrive Assessment: Date of Thrive Assessment Date Thrive assessed 05/20/25 12/21/24 08:13 Currently or been in a relationship where the following occur: No concerns reported Const General: cooperative, healthy appearing, comfortable, no acute distress and well developed Nutritional Appearance: thin Orientation/consciousness: patient oriented x3 Limitations: no limitations HENMT Head: Yes normal to inspection Ears: hearing grossly normal bilaterally General nose exam: Normal external nose present Face and sinus: Yes normal facial exam Eyes General: appearance normal, both eyes and all related structures Neck Neck: Yes normal visual inspection and Yes full ROM Resp Effort & Inspection: normal respiratory effort and able to speak in complete sentences Auscultation: clear to auscultation bilaterally Cardio Rate: regular rate Rhythm: regular rhythm Heart sounds: normal S1 and S2 Skin General skin exam: no rashes or lesions noted Neuro General: patient oriented x3 Extrem General: Yes normal to inspection Coding Level of Care Code TCM Mod MDM <= 14 Days Diagnoses Weakness generalized R53.1 Hospital discharge follow-up Z09 Chronic anticoagulation Z79.01 Atrial fibrillation I48.91 Additional Codes KAYLA-7 Assessment Billing - KAYLA-7 Assessment Tool: KAYLA-7 Assessment 73857 ([id number]) PHQ-9 - 08485 - PHQ-9 Billing: Yes ([id number]) Assessment & Plan Assessment & Plan (1) Weakness generalized: Code(s): R53.1 - Weakness Category: Medical Plan: We will send referral for physical therapy. We will have the patient call her insurance company to get the process started to help her obtain REPLANTER services for ADL's, specifically bathing. (2) Hospital discharge follow-up: Code(s): Z09 - Encounter for follow-up examination after completed treatment for conditions other than malignant neoplasm Category: Medical Plan: Continue to take her medications as prescribed. Follow up with Cardiology on January 13 at 1:30pm. (3) Chronic anticoagulation: Code(s): Z79.01 - buttermaker (current) use of anticoagulants Category: Medical Plan: as above (4) Atrial fibrillation: Code(s): I48.91 - Unspecified atrial fibrillation Category: Medical Plan: as above Orders: Orders PT Evaluation and Treatment Today R53.1 - Weakness
[2025-01-05 10:12] VITALS: BP 116/68; PULSE 64; RESP 18; O2SAT 98; BMI 17.0
--- OUTSIDE RECORDS SUMMARY | 2025-01-05 10:47 | XMS_ITS | Continuity of Care Document ---
Author Organization [facility] [address] [place] [address] Phone [phone] Social History Type Date Description Comments Sex Female Sex Unknown Medical Devices Description No Information Available Encounters Description No Information Available Assessments Description No Information Available Plan of Treatment No Information Available Functional Status Description No Information Available Mental Status Description No Information Available Referrals Description No Information Available
--- OUTSIDE RECORDS SUMMARY | 2025-01-05 10:47 | XMS_ITS | Patient Health Record ---
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 [address] [place] [address] [id number] [facility]en november Self - patient is the insured Medical (General) History Medical History History ICD Code Measles High blood pressure Sinus conditions Transfusions Surgical History Surgery Date(Month/Year) Hospitalization History Reason Date(Month/Year) [facility] 12/2020
== END 2025-01-05 11:04 | disposition home or self-care (01) ==
LOC: HO.HMCC 10:05
PROVIDERS: PCP Internal Medicine; Visit Provider Physician Assistant
DX: R53.1 Weakness (principal); I48.91 Unspecified atrial fibrillation; Z09 Encounter for follow-up examination after completed treatment for conditions other than malignant neoplasm; Z79.01 Long term (current) use of anticoagulants

== ENCOUNTER → 2025-01-05 10:04 | Outpatient (BNVA) | payer MEDICARE, SELFPAY | PROVIDERS: PCP Internal Medicine; Visit Provider Physician Assistant | DX: Z09 Encounter for follow-up examination after completed treatment for conditions other than malignant neoplasm (principal); R53.1 Weakness; I48.91 Unspecified atrial fibrillation; F17.200 Nicotine dependence, unspecified, uncomplicated; Z79.01 Long term (current) use of anticoagulants; Z71.6 Tobacco abuse counseling | CPT/HCPCS: 96127; 99495 ==

== ENCOUNTER 2025-01-13 13:22 | Outpatient (AMB) | payer MEDICARE, SELFPAY ==
--- OUTSIDE RECORDS SUMMARY | 2025-01-13 13:24 | XMS_ITS | Continuity of Care Document ---
Author Organization [facility] [address] [place] [address] Phone [phone] Social History Type Date Description Comments Sex Female Sex Unknown Medical Devices Description No Information Available Encounters Description No Information Available Assessments Description No Information Available Plan of Treatment No Information Available Functional Status Description No Information Available Mental Status Description No Information Available Referrals Description No Information Available
--- OUTSIDE RECORDS SUMMARY | 2025-01-13 13:24 | XMS_ITS | Patient Health Record ---
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 Plan Of Treatment Pending Test Test Name Order Date [id number] NAIL, 6 OR MORE 01/16/2021 [id number] NAIL, 6 OR MORE 04/01/2021 [id number] Plate 01/16/2021 Insurance Providers Payer Name Payer Address Payer Phone Subscriber Number Group Number Insured Name Patient Relationship to Insured Coverage Start Date Coverage End Date [id number] [address] [place] [address] [id number] [facility] Alicenovember Self - patient is the insured Medical (General) History Medical History History ICD Code Measles High blood pressure Sinus conditions Transfusions Surgical History Surgery Date(Month/Year) Hospitalization History Reason Date(Month/Year) [facility] [place]
[2025-01-13 13:30] VITALS: BP 158/88; PULSE 63; BMI 17.0
--- NOTE | 2025-01-13 13:30 | MHC.OFFVIS ---
Vital Signs 01/13/25 13:30 Height 4 ft 10 in Weight 81 lb 9.137 oz BMI 17.0 BP 158/88 H Blood Pressure Location Rt brachial Position Sitting Pulse 63 Pulse Source Monitor Intake Visit Reasons: [facility]- Follow up Oil Producer Required: No Sash Installer: Sash Installer Present Allergies codeine (Codeine) Allergy (Mild, Verified 01/13/25 13:33) NAUSEA AND VOMITING azithromycin (From ZITHROMAX Z-EWA) Adverse Reaction (Intermediate, Verified 01/13/25 13:33) N/V/D, severe GI upset Medication List - Last Reconciled 01/13/25 by ABHI Egan acetaminophen 650 mg PO Q6H PRN amiodarone 100 mg PO DAILY Anoro Ellipta 62.5-25 mcg/actuation (umeclidinium-vilanterol) 1 ea PO DAILY NS apixaban (Eliquis) 2.5 mg PO BID cholecalciferol (vitamin D3) 50 mcg PO DAILY lisinopril 10 mg PO DAILY loratadine 10 mg PO DAILY PRN psyllium 1 packet PO DAILY rosuvastatin 5 mg PO DAILY HPI HPI [facility]- Follow up: Details: Sari is an 89-year-old female with past medical history of hypertension, hyperlipidemia, peripheral vascular disease, COPD, chronic smoking, mild carotid stenosis, who was recently admitted to [facility] with increased shortness of breath and found to have AFib RVR and mild Congestive heart failure. She was treated with rate slowing agents and converted to sinus rhythm. She was then started on amiodarone for rhythm control. She was given IV diuretics with improvement in her heart failure. She was not sent home with daily diuretic therapy. She was started on Eliquis for anticoagulation. She now presents for follow-up. Today she reports that she has been doing well since her hospital discharge. She says her breathing is back to normal. She has not noticed any heart palpitations and does not recall having heart palpitations when she presented to the hospital. No chest discomfort at rest or during activities. No PND, orthopnea or edema. No lightheadedness, presyncope, syncope, falls. Taking all meds as directed. No bleeding issues reported. She has gained some weight since her hospital discharge which is good. Granddaughter and great grandchildren are present. 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 Mother No problems noted. Sister No problems noted. Son No problems noted. Son No problems noted. Son No problems noted. Son No problems noted. Other Substance use disorder Social History Household Members: Children Housing: House Are you a primary healthcare business analyst to a significant other at home: Yes Do you presently have visiting nurse or other home services: No Alcohol intake: never Patient Tobacco Use Status: Current everyday Tobacco user Tobacco use type: Cigarette Cigarette Packs Per Day: 0 Cigarettes Per Day: 6 Years Smoked: 70 e-Cigarette/Vaping Use: Currently Using Second Hand Smoke Exposure: No service: No Current occupational status: retired Current occupation: Right hand dominate Cognitive needs: No Hearing needs: No Vision needs: Yes Review of Systems Const All systems reviewed & are unremarkable except as noted in HPI and below ENT Denies dizziness Card Denies chest pain, Denies chest pain at rest, Denies chest pain with activity, Denies rapid heart rate, Denies pedal edema, Denies edema, Denies leg edema, Denies lightheadedness, Denies palpitations, Denies dyspnea, Denies dyspnea on exertion and Denies orthopnea Resp Denies cough, Denies dyspnea and Denies dyspnea on exertion GI Denies hematochezia and Denies change in stool character Musc Denies abnormal gait, Denies limited range of motion, Denies muscle cramps, Denies muscle weakness, Denies numbness, Denies radiating pain into limb, Denies stiffness and Denies tingling Neuro Denies abnormal gait, Denies dizziness, Denies numbness and Denies tingling Endo Denies palpitations Physical Exam Vital Signs: Last Vital Signs Pulse 63 01/13/25 13:30 BP 158/88 H 01/13/25 13:30 BMI result Body Mass Index 17.0 Const Other: Petite frail elderly female General: cooperative, healthy appearing, comfortable and no acute distress Orientation/consciousness: patient oriented x3 Neck Neck: Yes normal visual inspection Resp Effort & Inspection: normal respiratory effort Auscultation: clear to auscultation bilaterally, no rales, no rhonchi and no wheezes Cardio Rate: regular rate Rhythm: regular rhythm Heart sounds: S1 normal heart sound present, S2 normal heart sound present, no gallops, no murmurs and no rubs Neuro General: patient oriented x3 Extrem General: Yes normal to inspection, No no pedal edema and No calf tenderness Psych Appearance: grossly normal Mental Status: mental status grossly normal Speech and movement: Normal speech and movement present Office Procedures EKG Details: Today, read by me, sinus rhythm with PAC, incomplete RBBB, T wave abn anteriorly, rate 63, Qtc 476ms [id number], Complete Assessment & Plan Assessment & Plan (1) Atrial fibrillation: Code(s): I48.91 - Unspecified atrial fibrillation Category: Medical Plan: New finding of AFib RVR at the time of recent hospital admission. She was treated with rhythm control and put on low-dose amiodarone due to her small stature. EKG done today showing sinus rhythm with PAC, incomplete right bundle branch block, rate 63, QTC 476 milliseconds. Echocardiogram was done on 12/18/2024 showing EF 63%, grade 2 diastolic dysfunction, both atria normal size. She is on Eliquis, low-dose for anticoagulation. This is appropriate for her age and weight. Will check labs for amiodarone monitoring including liver panel and TSH. Will check CBC. Cardiology follow-up 3-4 months, sooner if needed. (2) Acute CHF: Code(s): I50.9 - Heart failure, unspecified Category: Medical Plan: Acute Congestive heart failure noted at time of recent hospitalization with AFib RVR. Echo does show grade 2 diastolic dysfunction. Diuresed with improvement in condition. Did not require home diuretics. Currently not fluid overloaded on examination. Signs and symptoms of heart failure reviewed with her. (3) Chronic anticoagulation: Code(s): Z79.01 - [facility] (current) use of anticoagulants Category: Medical Plan: Low-dose Eliquis in use, currently tolerating well. (4) Hospital discharge follow-up: Code(s): Z09 - Encounter for follow-up examination after completed treatment for conditions other than malignant neoplasm Category: Medical Plan: Discharge summary reviewed. (5) HTN (hypertension): Code(s): I10 - Essential (primary) hypertension Category: Medical Qualifiers: Hypertension type: primary hypertension Qualified Code(s): I10 - Essential (primary) hypertension Plan: Blood pressure goal ideally less than 140/90, mildly elevated today at 158/88 however recheck 138/84. Recommended periodic blood pressure checks at home. Continue lisinopril. Plan Time spent on chart review, documentation, interview and assessment Coding Level of Care Code Est Pt Level 4 (61252) Diagnoses Atrial fibrillation I48.91 Acute CHF I50.9 Chronic anticoagulation Z79.01 Hospital discharge follow-up Z09 Primary hypertension I10 Hypertension type: primary hypertension CPT Codes EKG - CPT: 71137-[id number], Complete ([id number]) Time Spent (min) 32
== END 2025-01-13 14:06 | disposition home or self-care (01) ==
LOC: HO.HCS 13:22
PROVIDERS: PCP Internal Medicine; Visit Provider Nurse Practitioner Family
DX: I48.91 Unspecified atrial fibrillation (principal); I50.9 Heart failure, unspecified; Z79.01 Long term (current) use of anticoagulants; Z09 Encounter for follow-up examination after completed treatment for conditions other than malignant neoplasm; I10 Essential (primary) hypertension
CPT/HCPCS: 93010; 99214

== ENCOUNTER → 2025-01-13 13:22 | Outpatient (BNVA) | payer MEDICARE, SELFPAY | PROVIDERS: PCP Internal Medicine; Visit Provider Nurse Practitioner Family | DX: Z09 Encounter for follow-up examination after completed treatment for conditions other than malignant neoplasm (principal); I48.91 Unspecified atrial fibrillation; I11.0 Hypertensive heart disease with heart failure; I50.9 Heart failure, unspecified; Z79.01 Long term (current) use of anticoagulants; I45.19 Other right bundle-branch block; R94.31 Abnormal electrocardiogram [ECG] [EKG] | CPT/HCPCS: 93005; 99212 ==

== ENCOUNTER 2025-01-20 13:50 | Outpatient (REF) | payer MEDICARE, SELFPAY ==
--- OUTSIDE RECORDS SUMMARY | 2025-01-20 13:52 | XMS_ITS | Patient Health Record ---
Author Organization [facility] Segovia Address [address] [place] [address] Care Team Providers Care Production Control Coordinating Clerk Name Role Phone Nate HOPPER, Crissy Roblero Primary Care Provider Un available Tod, Tank Unavailable [phone] Allergies Allergen (clinical drug ingredient) Drug/Non Drug [...] W/U Status Risk Notes Problem Tinea unguium ([id number]) Tinea unguium (B35.1) Active confirmed Plan Of Treatment Pending Test Test Name Order Date [id number] NAIL, 6 OR MORE 01/16/2021 [id number] NAIL, 6 OR MORE 04/01/2021 [id number] Plate 01/16/2021 Insurance Providers Payer Name Payer Address Payer Phone Subscriber Number Group Number Insured Name Patient Relationship to Insured Coverage Start Date Coverage End Date [facility] [address] [place] [address] [id number] [facility] Alicenovember Self - patient is the insured Medical (General) History Medical History History ICD Code Measles High blood pressure Sinus conditions Transfusions Surgical History Surgery Date(Month/Year) Hospitalization History Reason Date(Month/Year) [facility] [place]
--- OUTSIDE RECORDS SUMMARY | 2025-01-20 13:52 | XMS_ITS | Continuity of Care Document ---
Author Organization [facility] [address] [place] [address] Phone [phone] Social History Type Date Description Comments Sex Female Sex Unknown Medical Devices Description No Information Available Encounters Description No Information Available Assessments Description No Information Available Plan of Treatment No Information Available Functional Status Description No Information Available Mental Status Description No Information Available Referrals Description No Information Available
[2025-01-20 16:16] LABS: MANUAL DIFF FLAG NO
[2025-01-20 16:37] LABS: Hemoglobin 12.4 g/dl (12.0-16.0); Imm Gran Abs Auto 0.06 X10*3/uL (0.00-0.03); Imm Gran Pct Auto 0.9 % (0.0-0.4); NRBC Abs Auto 0.000 X10*3/uL (0.0-0.012); NRBC Pct Auto 0.0 /100WBC (0.0-0.2); PLT CLUMP 1; SCAN SMEAR FLAG 1
[2025-01-20 16:39] LABS: Hematocrit 38.0 % (37.0-47.0); Lymphocytes Absolute Auto 2.0 X10*3/uL (1.2-4.9); Mean Corpuscular HGB Conc 32.6 g/dl (31.0-35.0); Mean Corpuscular Hemoglobin 32.3 pg (27.0-33.0); Mean Corpuscular Volume 99.0 fL (80.0-98.0); Red Blood Count 3.84 X10*6/uL (4.20-5.50)
[2025-01-20 16:47] LABS: Platelet Count 118 X10*3/uL (160-400); White Blood Count 6.6 X10*3/uL (4.8-10.8)
[2025-01-20 17:09] LABS: Alanine Aminotransferase 8 U/L (0-31); Albumin Level 3.7 g/dL (3.5-5.0); Alkaline Phosphatase 89 U/L (39-117); Aspartate Amino Transferase 20 U/L (5-31); Total Protein 5.9 g/dL (6.5-8.0)
== END 2025-01-20 13:51 | disposition home or self-care (01) ==
LOC: HO.HMGCLDS 13:50
PROVIDERS: PCP Internal Medicine; Visit Provider Nurse Practitioner Family
DX: I48.91 Unspecified atrial fibrillation (principal)
CPT/HCPCS: 36415; 80076; 84443; 85025

== ENCOUNTER 2025-02-02 11:28 | Outpatient (AMB) | payer MEDICARE, SELFPAY ==
--- NOTE | 2025-02-02 12:08 | A.OFFPC_ITS ---
Vital Signs 02/02/25 12:09 Height 4 ft 10 in Weight 82 lb 8 oz BMI 17.2 BP 160/74 H Blood Pressure Location Lt brachial Position Sitting Respiration 16 Pulse 62 Pulse Source Pulse Oximeter Temp 97.6 F Temp Source Oral Pulse Oximetry (%) 98 Oxygen Delivery Method Room Air Intake Visit Reasons: f/u Intake Note: Pt is here today for a f/u after her TCM Allergies codeine (Codeine) Allergy (Mild, Verified 02/02/25 12:23) NAUSEA AND VOMITING azithromycin (From ZITHROMAX Z-EWA) Adverse Reaction (Intermediate, Verified 02/02/25 12:23) N/V/D, severe GI upset Medication List - Last Reconciled 02/02/25 by Crissy Sullivan MD acetaminophen 650 mg PO Q6H PRN amiodarone 100 mg PO DAILY Anoro Ellipta 62.5-25 mcg/actuation (umeclidinium-vilanterol) 1 ea PO DAILY NS apixaban (Eliquis) 2.5 mg PO BID 90 days cholecalciferol (vitamin D3) 50 mcg PO DAILY lisinopril 10 mg PO DAILY loratadine 10 mg PO DAILY PRN psyllium 1 packet PO DAILY rosuvastatin 5 mg PO DAILY Tobacco use date assessed: 02/02/25 Fall risk assessment: No Falls in past year Last assessed Fall Risk: 02/02/25 Dental Screening Dental Screen Date: 01/05/25 Did you have a dental visit in the last 12 months?: No Did you have a dental problem in the last 6 months where you did not have access to dental care?: No Was dental information given to patient?: Patient declined HPI f/u HPI Details 89 year old lady here for a TCM visit . Recently admitted to the hospital for AFib with RVR not responsive to initial ED treatments and requiring IV diltiazem drip. Pt had good response to IV Cardizem, and eventually transitioned to p.o., though this was switched to amiodarone as pt continued to have brief runs of AFib. Pt self converted to normal sinus rhythm and has maintained NSR since yesterday. Pt has also been asymptomatic without chest pain/pressure or palpitations. No SOB or difficulty breathing. Was also started on age and weight adjusted dose of Eliquis 2.5 mg b.i.d. for anticoagulation. Echocardiogram showed LVEF of 63% and evidence of grade 2 diastolic dysfunction. Was seen and evaluated by Cardiology who recommended weight adjusted amiodarone dosing: Loading dose of 200 mg b.i.d. times 10 days with maintenance dose of 100 mg daily after that. She was advised to follow-up with Cardiology in 1 week after discharge For COPD, continue home inhalers. Continues to smoke cigarettes with no desire to quit . State that she is cutting back For hypertension, continue lisinopril 10 mg daily. Blood pressure was noted to fluctuate Cardiology suggested increasing lisinopril if hypertension persists. We will continue patient's home dose of lisinopril at this time. For hyperlipidemia, continued on rosuvastatin 5 mg daily For nicotine dependence, pt was counseled on smoking cessation. [facility] Medical History (Updated 02/02/25 @ 12:36 by Crissy Sullivan MD) Activity involving muscle strengthening exercises HTN (hypertension) Acute CHF Adult failure to thrive Generalized headaches Grief Abnormal EKG COPD (chronic obstructive pulmonary disease) Stenosis of left carotid artery greater than 50% Chronic cough Hx of transient ischemic attack (TIA) Spongiotic dermatitis Lichen sclerosus Cerumen impaction Tenosynovitis of both wrists Eczema Tachycardia, paroxysmal History of melena Intertrigo Smoker unmotivated to quit Vertigo Menopause Osteoporosis Dyslipidemia Surgical History H/O abdominal surgery Status post exploratory laparotomy Hx of exploratory laparotomy (07/22/24) H/O: hysterectomy History of colonoscopy History of cataract surgery History of appendectomy Family History Father No problems noted. Mother No problems noted. Sister No problems noted. Son No problems noted. Son No problems noted. Son No problems noted. Son No problems noted. Other Substance use disorder Social History Household Members: Children Housing: House Are you a primary hospice patient care secretary to a significant other at home: Yes Do you presently have visiting nurse or other home services: No Alcohol intake: never Patient Tobacco Use Status: Current everyday Tobacco user Tobacco use type: Cigarette Cigarette Packs Per Day: 0 Cigarettes Per Day: 6 Years Smoked: 70 e-Cigarette/Vaping Use: Currently Using Second Hand Smoke Exposure: No service: No Current occupational status: retired Current occupation: Right hand dominate Cognitive needs: No Hearing needs: No Vision needs: Yes Questionnaire Thrive Questionnaire Date Thrive assessed: 01/05/25 KAYLA-7 AMB Questionnaire KAYLA-7 Date KAYLA - 7 assessed: 01/05/25 Source: Developed by Drs. Ortiz Mike, Yessenia Quintana, Fernando Eller and colleagues, with an educational papito from [employer]. Review of Systems Const Reports weakness Eyes Denies change in vision ENT Denies dizziness Card Denies chest pain at rest, Denies chest pain with activity, Denies rapid heart rate, Denies pedal edema, Denies lightheadedness, Denies palpitations, Denies dyspnea and Denies dyspnea on exertion Resp Denies cough, Denies dyspnea and Denies dyspnea on exertion GI Denies hematochezia, Denies change in stool character and Reports constipation Reports no additional complaints Musc Denies abnormal gait, Denies limited range of motion, Denies muscle cramps, Denies muscle weakness, Denies numbness, Denies radiating pain into limb, Denies stiffness and Denies tingling Neuro Denies abnormal gait, Denies dizziness, Denies numbness, Denies tingling and Reports weakness Endo Denies palpitations Gunner/Lymph Reports no additional complaints Physical exam (Primary Care) Vital Signs: Last Vital Signs Temp 97.6 F 02/02/25 12:09 Pulse 62 02/02/25 12:09 Resp 16 02/02/25 12:09 BP 160/74 H 02/02/25 12:09 Pulse Ox 98 02/02/25 12:09 Oxygen Delivery Method Room Air 02/02/25 12:09 BMI result Body Mass Index 17.2 Tobacco/Smoking Status: Tobacco use Status Tobacco use date assessed 02/02/25 02/02/25 12:20 Patient Tobacco Use Status Current everyday Tobacco 02/02/25 12:20 Tobacco use type Cigarette 02/02/25 12:20 e-Cigarette/Vaping Use Currently Using 02/02/25 12:20 Thrive Assessment: Date of Thrive Assessment Date Thrive assessed 01/05/25 02/02/25 12:20 Const General: no acute distress and well developed Nutritional Appearance: thin Orientation/consciousness: patient oriented x3 HENMT Head: Yes normal to inspection Ears: hearing grossly normal bilaterally General nose exam: Normal external nose present Face and sinus: Yes normal facial exam Eyes General: appearance normal, both eyes and all related structures Neck Neck: Yes normal visual inspection and Yes full ROM Resp Effort & Inspection: normal respiratory effort and able to speak in complete sentences Auscultation: clear to auscultation bilaterally Cardio Rate: regular rate Rhythm: regular rhythm Heart sounds: normal S1 and S2 GI Palpation (GI): Soft to palpation, nontender, no guarding and no masses Auscultation: normal bowel sounds General: Yes no CVA tenderness Back/Spine/Pelvis Back: no CVA tenderness and No back tenderness Skin General skin exam: no rashes or lesions noted Neuro General: patient oriented x3 Extrem General: Yes normal to inspection Psych Appearance: grossly normal Mental Status: mental status grossly normal Speech and movement: Normal speech and movement present Affect: normal affect Coding Level of Care Code Est Pt Level 4 (56028) Complex EM visit Add On G2211 Diagnoses Activity involving muscle strengthening exercises Y93.B9 Constipation K59.00 Hospital discharge follow-up Z09 Weakness generalized R53.1 Chronic obstructive pulmonary disease, unspecified COPD type J44.9 COPD type: unspecified COPD Arthritis of carpometacarpal (CMC) joint of both thumbs M18.0 Bilateral carotid artery stenosis I65.23 Dyslipidemia E78.5 History of atrial fibrillation Z86.79 Assessment & Plan Assessment & Plan (1) Activity involving muscle strengthening exercises: Code(s): Y93.B9 - Activity, other involving muscle strengthening exercises Category: Social Hx (2) Constipation: Code(s): K59.00 - Constipation, unspecified (3) Hospital discharge follow-up: Code(s): Z09 - Encounter for follow-up examination after completed treatment for condit ions other than malignant neoplasm Category: Medical (4) Weakness generalized: Code(s): R53.1 - Weakness Category: Medical (5) COPD (chronic obstructive pulmonary disease): Code(s): J44.9 - Chronic obstructive pulmonary disease, unspecified Category: Medical Qualifiers: COPD type: unspecified COPD Qualified Code(s): J44.9 - Chronic obstructive pulmonary disease, unspecified (6) Arthritis of carpometacarpal (CMC) joint of both thumbs: Code(s): M18.0 - Bilateral primary osteoarthritis of first carpometacarpal joints Category: Medical (7) Bilateral carotid artery stenosis: Code(s): I65.23 - Occlusion and stenosis of bilateral carotid arteries Category: Medical (8) Dyslipidemia: Code(s): E78.5 - Hyperlipidemia, unspecified Category: Medical (9) History of atrial fibrillation: Code(s): Z86.79 - Personal history of other diseases of the circulatory system Plan Patient was informed and verbally consented to the use of an ambient scribe for clinic note documentation during this visit . 1. Bowel Obstruction The patient underwent surgery for bowel obstruction in July, which resulted in subsequent mobility issues. 2. Mobility Issues Post-surgery, the patient experienced significant mobility issues, including difficulty walking and using her hand. 3. Mental Health Breakdown Following the of her partner, the patient experienced a nervous breakdown, characterized by crying and shaking. 4. Hypertension The patient was hospitalized a month ago due to elevated blood pressure, which was difficult to manage. Systolic blood pressure fluctuates, will continue her on lisinopril 10 mg daily and advised to monitor blood pressure at home. Report if systolic blood pressure persistently above 130 mm Hg 5. Constipation The patient reports constipation, managed with dietary fiber and Metamucil, advised to start taking docusate sodium 100 mg 1 capsule once or twice a day as needed for constipation. 6. Smoking The patient continues to smoke five cigarettes a day despite previous advice to quit. 7. History of atrial fibrillation. Continued on Eliquis 2.5 mg twice a day. Avoidance of NSAIDs. Already seen by Cardiology for her follow-up, and is to be seeing them again after 4 months. 8. Generalized weakness- referred for physical therapy for strengthening exercises Orders: Orders PT Evaluation and Treatment 02/02/25 Y93.B9 - Activity, other involving muscle strengthening exercises Medications: New docusate sodium 100 mg PO BID 60 caps 2RF K59.00 - Constipation, unspecified
[2025-02-02 12:09] VITALS: BP 160/74; PULSE 62; RESP 16; TEMP 36.4; O2SAT 98; BMI 17.2
--- OUTSIDE RECORDS SUMMARY | 2025-02-02 12:47 | XMS_ITS | Continuity of Care Document ---
Author Organization [facility] [address] [place] [address] Phone [phone] Social History Type Date Description Comments Sex Female Sex Unknown Medical Devices Description No Information Available Encounters Description No Information Available Assessments Description No Information Available Plan of Treatment No Information Available Functional Status Description No Information Available Mental Status Description No Information Available Referrals Description No Information Available
--- OUTSIDE RECORDS SUMMARY | 2025-02-02 12:47 | XMS_ITS | Patient Health Record ---
Author Organization [facility] Address [address] [place] [address] Care Team Providers Care Longitudinal Float Operator Name Role Phone Nate HOPPER, Crissy Roblero Primary Care Provider Un available Tod, Tank Unavailable [phone] Allergies Allergen (clinical drug ingredient) Drug/Non Drug [...] Treatment Pending Test Test Name Order Date [id number] NAIL, 6 OR MORE 01/16/2021 [id number] NAIL, 6 OR MORE 04/01/2021 [id number] Plate 01/16/2021 Insurance Providers Payer Name Payer Address Payer Phone Subscriber Number Group Number Insured Name Patient Relationship to Insured Coverage Start Date Coverage End Date [id number] [address] [place] [address] [id number] [facility] [place] november Self - patient is the insured Medical (General) History Medical History History ICD Code Measles High blood pressure Sinus conditions Transfusions Surgical History Surgery Date(Month/Year) Hospitalization History Reason Date(Month/Year) [facility] [place] 12/2020
== END 2025-02-02 12:48 | disposition home or self-care (01) ==
LOC: HO.HMCC 11:29
PROVIDERS: PCP Internal Medicine; Visit Provider Internal Medicine
DX: J44.9 Chronic obstructive pulmonary disease, unspecified (principal); K59.00 Constipation, unspecified; Y93.B9 Activity, other involving muscle strengthening exercises; Z09 Encounter for follow-up examination after completed treatment for conditions other than malignant neoplasm; R53.1 Weakness; M18.0 Bilateral primary osteoarthritis of first carpometacarpal joints; I65.23 Occlusion and stenosis of bilateral carotid arteries; E78.5 Hyperlipidemia, unspecified; Z86.79 Personal history of other diseases of the circulatory system

== ENCOUNTER → 2025-02-02 11:28 | Outpatient (BNVA) | payer MEDICARE, SELFPAY | PROVIDERS: PCP Internal Medicine; Visit Provider Internal Medicine | DX: Z09 Encounter for follow-up examination after completed treatment for conditions other than malignant neoplasm (principal); K59.00 Constipation, unspecified; R53.1 Weakness; J44.9 Chronic obstructive pulmonary disease, unspecified; M18.0 Bilateral primary osteoarthritis of first carpometacarpal joints; E78.5 Hyperlipidemia, unspecified; Z86.79 Personal history of other diseases of the circulatory system; Z86.73 Personal history of transient ischemic attack (TIA), and cerebral infarction without residual deficits | CPT/HCPCS: 99212 ==

== ENCOUNTER 2025-04-21 13:03 | Outpatient (AMB) | payer MEDICARE, SELFPAY ==
--- NOTE | 2025-04-21 13:07 | A.OFFVIS_ITS ---
Vital Signs 04/21/25 13:08 Height 4 ft 10 in Weight 83 lb 12.41 oz BMI 17.5 BP 110/70 Blood Pressure Location Lt brachial Position Sitting Pulse 71 Intake Visit Reasons: 3m follow up Intake Note: 3 month follow-up with ekg feeling good Frame Cleaner Required: No Allergies codeine (Codeine) Allergy (Mild, Verified 02/02/25 12:23) NAUSEA AND VOMITING azithromycin (From ZITHROMAX Z-EWA) Adverse Reaction (Intermediate, Verified 02/02/25 12:23) N/V/D, severe GI upset Medication List - Last Reconciled 04/21/25 by Samantha Naqvi ROTARY DERRICK OPERATOR-C acetaminophen 650 mg PO Q6H PRN amiodarone 100 mg (1/2 x 200 mg) PO DAILY Anoro Ellipta 62.5-25 mcg/actuation (umeclidinium-vilanterol) 1 ea PO DAILY NS apixaban (Eliquis) 2.5 mg PO BID 90 days cholecalciferol (vitamin D3) 50 mcg PO DAILY docusate sodium 100 mg PO BID lisinopril 10 mg PO DAILY loratadine 10 mg PO DAILY PRN psyllium 1 packet PO DAILY rosuvastatin 5 mg PO DAILY HPI HPI 3m follow up: Details: Sari is an 89-year-old female with past medical history of hypertension, hyperlipidemia, peripheral vascular disease, COPD, chronic smoking, mild carotid stenosis, PAF, HFpEF who presents for follow up. Today she reports that she has been doing well since her last visit. She is not noticing any heart palpitations. She has no chest discomfort, shortness of breath, lightheadedness, leg edema. She tells me she is not eating well since she takes Metamucil which fills her stomach and then she is not hungry. She does light activities around her home. Granddaughter and great grandchildren are present. [facility] Medical History Activity involving muscle strengthening exercises HTN (hypertension) Acute CHF Adult failure to thrive Generalized headaches Grief Abnormal EKG COPD (chronic obstructive pulmonary disease) Stenosis of left carotid artery greater than 50% Chronic cough Hx of transient ischemic attack (TIA) Spongiotic dermatitis Lichen sclerosus Cerumen impaction Tenosynovitis of both wrists Eczema Tachycardia, paroxysmal History of melena Intertrigo Smoker unmotivated to quit Vertigo Menopause Osteoporosis Dyslipidemia Surgical History H/O abdominal surgery Status post exploratory laparotomy Hx of exploratory laparotomy (07/22/24) H/O: hysterectomy History of colonoscopy History of cataract surgery History of appendectomy Family History Father No problems noted. Mother No problems noted. Sister No problems noted. Son No problems noted. Son No problems noted. Son No problems noted. Son No problems noted. Other Substance use disorder Social History Household Members: Children Housing: House Are you a primary assisted living care manager to a significant other at home: Yes Do you presently have visiting nurse or other home services: No Alcohol intake: never Patient Tobacco Use Status: Current everyday Tobacco user Tobacco use type: Cigarette Cigarette Packs Per Day: 0 Cigarettes Per Day: 6 Years Smoked: 70 e-Cigarette/Vaping Use: Currently Using Second Hand Smoke Exposure: No service: No Current occupational status: retired Current occupation: Right hand dominate Cognitive needs: No Hearing needs: No Vision needs: Yes Review of Systems Const All systems reviewed & are unremarkable except as noted in HPI and below Denies chills, Denies fatigue, Denies fever(s), Denies frequent falls, Denies weakness, Denies weight gain and Denies weight loss ENT Denies dizziness Card Denies chest pain, Denies leg edema, Denies lightheadedness, Denies palpitations, Denies dyspnea, Denies dyspnea on exertion, Denies orthopnea and Denies other (loss of consciousness) Resp Denies cough, Denies dyspnea and Denies dyspnea on exertion GI Denies hematochezia and Denies change in stool character Musc Denies abnormal gait, Denies muscle weakness, Denies numbness, Denies radiating pain into limb and Denies tingling Neuro Denies abnormal gait, Denies dizziness, Denies frequent falls, Denies numbness, Denies tingling and Denies weakness Endo Denies fatigue and Denies palpitations Physical Exam Vital Signs: Last Vital Signs Pulse 71 04/21/25 13:08 BP 110/70 04/21/25 13:08 BMI result Body Mass Index 17.5 Const Other: Petite frail elderly female General: cooperative, healthy appearing, comfortable and no acute distress Orientation/consciousness: patient oriented x3 Neck Neck: Yes normal visual inspection Resp Effort & Inspection: normal respiratory effort Auscultation: clear to auscultation bilaterally, no rales, no rhonchi and no wheezes Cardio Rate: regular rate Rhythm: regular rhythm Heart sounds: S1 normal heart sound present, S2 normal heart sound present, no gallops, no murmurs and no rubs Neuro General: patient oriented x3 Extrem General: Yes normal to inspection, No no pedal edema and No calf tenderness Psych Appearance: grossly normal Mental Status: mental status grossly normal Speech and movement: Normal speech and movement present Office Procedures EKG Details: Today, read by me, sinus rhythm with PACs, left axis deviation, right bundle branch block, rate 71 QTC 484 millisecond [id number], Complete Assessment & Plan Assessment & Plan (1) Atrial fibrillation: Code(s): I48.91 - Unspecified atrial fibrillation Category: Medical Plan: Newer finding of AFib RVR 12/2024. She was treated with rhythm control and put on low-dose amiodarone due to her small stature. Today showing sinus rhythm with PACs, rate 71, QTC 484. Echocardiogram was done on 12/18/2024 showing EF 63%, grade 2 diastolic dysfunction, both atria normal size. She is on Eliquis, low-dose for anticoagulation. This is appropriate for her age and weight. Labs for amiodarone monitoring 01/20/2025 showed normal AST and ALT, TSH 1.23. No med changes made. Cardiology follow-up 4 months, sooner if needed. (2) Acute CHF: Code(s): I50.9 - Heart failure, unspecified Category: Medical Plan: Acute Congestive heart failure noted at time of hospitalization with AFib RVR. Echo does show grade 2 diastolic dysfunction. Diuresed with improvement in condition. Did not require home diuretics. Currently not fluid overloaded on examination. Signs and symptoms of heart failure reviewed with her. (3) Chronic anticoagulation: Code(s): Z79.01 - senior care (current) use of anticoagulants Category: Medical Plan: Low-dose Eliquis in use, currently tolerating well. (4) HTN (hypertension): Code(s): I10 - Essential (primary) hypertension Category: Medical Qualifiers: Hypertension type: primary hypertension Qualified Code(s): I10 - Essential (primary) hypertension Plan: Blood pressure goal ideally less than 140/90. Low normal on exam today. Reviewed good hydration. No med changes made. Plan I discussed with the patient the importance of monitoring for palpitations or irregular heartbeats and advised seeking medical attention if needed. We reviewed the role of Eliquis in reducing stroke risk and the potential for easy bruising, emphasizing caution to avoid falls. Follow-up with the accounting professor is scheduled in four months, with instructions to contact us sooner if needed. Patient Instructions: - Monitor for palpitations or irregular heartbeats and seek medical attention if needed - Be cautious to avoid falls and injuries due to easy bruising. - Maintain activity levels and monitor symptoms of fatigue. - Follow up with the accounting professor in four months or sooner if needed. Patient was informed and verbally consented to the use of an ambient scribe for clinic note documentation during this visit. Visit time spent on chart review, interview, assessment, orders, documentation. Coding Level of Care Code Est Pt Level 4 (58467) Complex EM visit Add On G2211 Diagnoses Atrial fibrillation I48.91 Acute CHF I50.9 Chronic anticoagulation Z79.01 Primary hypertension I10 Hypertension type: primary hypertension CPT Codes EKG - CPT: [id number], Complete ([id number]) Time Spent (min) 28
[2025-04-21 13:08] VITALS: BP 110/70; PULSE 71; BMI 17.5
--- OUTSIDE RECORDS SUMMARY | 2025-04-21 19:14 | XMS_ITS | Patient Health Record ---
Author Organization [facility] Address [address] [place] [address] Care Team Providers Care Lead Cook Name Role Phone Nate HOPPER, Crissy Roblero Primary Care Provider Un available Tod, Tank Unavailable [phone] Allergies Allergen (clinical drug ingredient) Drug/Non Drug [...] W/U Status Risk Notes Problem Tinea unguium ([id number]) Tinea unguium (B35.1) Active confirmed Plan Of Treatment Pending Test Test Name Order Date [id number] NAIL, 6 OR MORE 01/16/2021 [id number] NAIL, 6 OR MORE 04/01/2021 [id number] Plate 01/16/2021 Insurance Providers Payer Name Payer Address Payer Phone Subscriber Number Group Number Insured Name Patient Relationship to Insured Coverage Start Date Coverage End Date [id number] [address] [place] [address] [id number] [facility] Alicenovember Self - patient is the insured Medical (General) History Medical History History ICD Code Measles High blood pressure Sinus conditions Transfusions Surgical History Surgery Date(Month/Year) Hospitalization History Reason Date(Month/Year) [facility] [place]
== END 2025-04-21 13:40 | disposition home or self-care (01) ==
PROVIDERS: PCP Internal Medicine; Visit Provider Nurse Practitioner Family
DX: I48.91 Unspecified atrial fibrillation (principal); I50.9 Heart failure, unspecified; Z79.01 Long term (current) use of anticoagulants; I10 Essential (primary) hypertension
CPT/HCPCS: 93010; 99214; G2211

== ENCOUNTER → 2025-04-21 13:03 | Outpatient (BNVA) | payer MEDICARE, SELFPAY | PROVIDERS: PCP Internal Medicine; Visit Provider Nurse Practitioner Family | DX: I11.0 Hypertensive heart disease with heart failure (principal); I50.31 Acute diastolic (congestive) heart failure; I45.10 Unspecified right bundle-branch block; I49.1 Atrial premature depolarization; F17.210 Nicotine dependence, cigarettes, uncomplicated; Z79.01 Long term (current) use of anticoagulants | CPT/HCPCS: 93005; 99212 ==